=== PATIENT | female | born 1970 | race Caucasian/White ===

== ENCOUNTER 2019-02-12 15:36 | Observation (INO) | payer BC, SELFPAY ==
[2019-02-12] VITALS (7 sets, daily range): BP systolic 134–156; BP diastolic 79–103; PULSE 75–91; RESP 13–18; TEMP 36.5–36.9; O2SAT 95–98; BMI 42.8; BMI 43.0; BMI 43.1
--- NOTE | 2019-02-12 16:04 | EKG12_ITS ---
Test Reason : CP Blood Pressure : / mmHG Vent. Rate : 091 BPM Atrial Rate : 091 BPM P-R Int : 128 ms QRS Dur : 090 ms QT Int : 394 ms P-R-T Axes : 052 062 035 degrees QTc Int : 484 ms Normal sinus rhythm Possible Left atrial enlargement Prolonged QT Abnormal ECG Confirmed by CATHERINE WALTERS, INDIA ([id number]), proposal editor XAVIER HUANG ([id number]) on 02/13/2019 1:43:03 PM Referred By: CALE Confirmed By:INDIA ALEXANDER MD
--- NOTE | 2019-02-12 16:04 | RAD_ITS ---
STUDY: X-RAY CHEST REASON FOR EXAM: Female, 48 years old. Chest pain TECHNIQUE: Single AP portable view of the chest. COMPARISON: None. FINDINGS: The lungs are clear and expanded. There is no demonstrated pleural abnormality. Normal size heart. Normal mediastinum and teresa. Normal visualized pulmonary arteries. Normal visualized aortic arch and descending thoracic aorta. Unremarkable visualized thoracic spine. Normal visualized ribs, clavicles, and shoulders. There is no demonstrated abnormality of the visualized soft tissue structures of the upper abdomen. RAD/Chest 1 View (Portable) IMPRESSION: Normal x-ray examination of the chest. No acute intrathoracic process. No evidence of pneumonia or CHF. Electronically Signed: Timi Tam MD at 16:33 EDT Tel [phone], Service support ,
[2019-02-12] MEDS: Ondansetron 4 MG/2 ML Vial IV (16:11)
[2019-02-12] MEDS: Aspirin 81 MG TAB.CHEW 324 MG PO (16:11)
[2019-02-12] MEDS: Morphine 4 MG/ML Syringe IV (16:11)
[2019-02-12 16:20] LABS: Absolute Lymphocyte Count 3.44 X10^3/uL (0.83-4.51); Absolute Neutrophil Count 6.5 X10^3/uL (2.0-7.7); Basophil# 0.04 X10^3/uL; Basophil% 0.4 % (0-1); Eosinophil# 0.23 X10^3/uL; Eosinophils% 2.1 % (0-5); Hematocrit 41.3 % (37-47); Hemoglobin 13.4 g/dL (12.0-15.0); Lymphocyte # 3.44 X10^3/ul (4.0); Lymphocyte % 31.4 % (19-41); Mean Corp Hgb Conc 32.4 g/dL (32-36); Mean Corpuscular Hgb 30.5 pg (27.0-32.0); Mean Corpuscular Volume 94.1 fL (81-99); Mean Platelet Vol. 10.8 fl (6.2-12.0); Monocyte# 0.66 X10^3/uL; NRBC Flagged by Analyzer 0 % (0-5); Neutrophil % 59.3 % (47-70); Platelet Count 208 K/mm3 (150-450); RBC Distribution Width CV 13.7 % (11.6-14.6); RBC Distribution Width SD 47.3 fl (35.1-43.9); Red Blood Count 4.39 M/mm3 (4.2-5.4)
[2019-02-12 16:30] LABS: Anion Gap 6 (5-15); BUN 18 mg/dL (7-18); BUN/Creat Ratio 18.6 RATIO (10-20); Calcium,Total 8.3 mg/dL (8.5-10.1); Chloride 109 mmol/L (98-107); Creatinine, Serum 0.97 mg/dL (0.55-1.02); EST Glomerular Filtration Rate 66 mL/min (>60); Est Glom Filt Rate - Afr Amer 80 mL/min (>60); Estimated Creatinine Clearance 67.84 ml/min; Glucose 149 mg/dL (74-106); Potassium 3.9 mmol/L (3.5-5.1); Sodium Level 140 mmol/L (136-145)
--- NOTE | 2019-02-12 16:57 | ED.VIS.GEN ---
History of Present Illness Chief Complaint: Chest Pain Informant: Patient Onset: Today Context: Gradual Onset Timing: Continuous Current Severity: Moderate Maximum Severity: Moderate Narrative: Patient presents with chest pain, it is intermittent achy. She has multiple comorbidities. The patient does have some pressure component. No fever chills. No cough congestion. She has no DVT or PE risk factors. Pain is mild to moderate Past Medical History - Allergies and Home Meds Allergies/Adverse Reactions: Allergies No Known Allergies Allergy (Verified 02/12/19 15:38) Primary Care Physician: Odette Patel NP-C [Primary Care Provider] - Past Medical History: - - Hypertension, smoker, positive family history Smoking Status: Current every day smoker Review of Systems All systems negative except as indicated General: Denies: Fever Eyes: Denies: Visual changes - bilaterally Cardiovascular: Reports: Chest pain. Denies: Palpitations Respiratory: Denies: Dyspnea, Cough, Sputum Gastrointestinal: Denies: Abdominal pain, Nausea Skin: Denies: Rash Neurological: Denies: Headache, Weakness Hematologic: Denies: Easy bruising Physical Exam Vital Signs/Narrative: Vital Signs Temp Pulse Resp BP Pulse Ox 02/12/19 15:41 97.9 F 91 16 151/103 H 98 General: Well nourished, Well developed, No Acute Distress ENT: Moist mucous membranes Cardiovascular: Regular rate, Regular rhythm, No murmurs Respiratory: No distress, CTA bilaterally Abdomen: Soft, Nontender, Nondistended Back: Nontender, Normal Inspection Extremities: - - Bilateral symmetric lower extremity edema which is chronic Skin: Normal color Neurological: Alert, Oriented x3 Psychological: Normal affect Diagnostic/Tx/Re-eval Chest X-Ray - ED: 1 View, Normal, Heart, Lungs - Rhythm Strip Rhythm Strip: Sinus Rhythm Rate: 91 Ectopy: None - EKG Initial EKG Interpretation: Sinus Rhythm, Non-Specific ST Changes, - - Normal IA and QTc intervals. Interpreted by emergency doctor - Medical Decision Making Patient has a heart score of 5, I will admit her for cardiac work-up. Initial cardiac work-up was unremarkable in the ED. Position admit stable condition ED Disposition - Plan for ED Patient: Diagnosis: Chest pain Referrals: Odette Patel NP-C [Primary Care Provider] -
--- NOTE | 2019-02-12 17:54 | PCM.HP.STD ---
<Libby Da Silva - Last Filed: 02/12/19 18:20> Problem List (1) Chest pain Status: Acute (2) HTN (hypertension) Status: Chronic (3) Morbid obesity Status: Chronic History of Present Illness Date of Admission: 02/12/19 Chief Complaint: Chest pain. The patient is a 48 year old F who presents emergency room due to chest pain. Patient reports she has had chest pain intermittently for several weeks, typically associated with exertion and improves with rest. She reports pain radiation down the left side of her arm. She describes associated shortness of breath, lightheadedness and diaphoresis. She reports last night her chest pain became worse and she decided to come to the emergency room today. She reports yesterday she did a lot of physical activity at a family member's house. She denies chest pain during that activity however later that night at home she developed significant chest pain. She states she has been sick for the past few weeks with an upper respiratory infection and was recently placed on oral steroids which she completed. She continues to have nonproductive cough, otherwise symptoms have mostly resolved. She has a past medical history of hypertension, tobacco dependence, anxiety, depression, restless leg syndrome, morbid obesity. 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 Denies: Edema, Palpitations, Syncope Respiratory: Reports: Cough, Shortness of breath upon exertion. Denies: Shortness of breath at rest, Sputum production Gastrointestinal: Denies: Abdominal Pain, Nausea, Vomiting Genitourinary: Denies: Dysuria Musculoskeletal: Denies: Joint Pain, Joint Tenderness Skin: Denies: Rash, Wounds Neurological: Denies: Numbness, Tingling, Focal weakness Psychiatric: Reports: Anxiety, Depression Hematologic/ Lymphatic: Denies: Easy Bruising, Easy Bleeding VTE Information - Inpt Only VTE Present on Admission: No VTE Mechan Device Prophylaxis: None VTE Pharm Prophylaxis ordered?: Yes Patient Problems: Active and Suspected Problems Chest pain (Acute) - Physical Exam General: Alert, Oriented x3, Cooperative HEENT: Atraumatic, PERRLA, EOMI, Normocephalic Neck: Supple, No JVD, Negative Carotid Bruits Lungs: Clear to auscultation, Diminished Cardiovascular: Regular rate, Regular Rhythm, Normal S1, Normal S2, No murmurs Abdomen: Bowel Sounds Present, Soft, Non Tender, Non-Distended, Obese Extremities: No clubbing, No cyanosis, No edema, Capillary Refill Less than 3 Seconds Skin: No rashes, No breakdown Musculoskeletal: No Tenderness to Palpation of Joints or Extremities Neurological: Cranial nerves II-XII grossly intact, Neuro grossly intact Psych/Mental Status: Normal Affect, Appropriate Vital Signs Temp Pulse Resp BP Pulse Ox 97.9 F 90 14 134/79 H 95 02/12/19 15:41 02/12/19 17:17 02/12/19 17:17 02/12/19 17:17 02/12/19 17:17 Oxygen Delivery Method Room Air Weight: 262 lb 12.656 oz Body Mass Index (BMI) 43.0 Laboratory Tests Past 24 Hrs 02/12/19 02/12/19 15:45 15:45 WBC 11.0 RBC 4.39 Hgb 13.4 Hct 41.3 MCV 94.1 MCH 30.5 MCHC 32.4 RDW Std Deviation 47.3 H RDW Coeff of Brissa 13.7 Plt Count 208 MPV 10.8 Immature Gran % (Auto) 0.800 Neut % (Auto) 59.3 Lymph % (Auto) 31.4 [place] % (Auto) 6.0 Eos % (Auto) 2.1 Baso % (Auto) 0.4 Absolute Neuts (auto) 6.5 Absolute Lymphs (auto) 3.44 Nucleated RBC % 0 Sodium 140 Potassium 3.9 Chloride 109 H Carbon Dioxide 25.0 Anion Gap 6 BUN 18 Creatinine 0.97 Estim Creat Clear Calc 67.84 Est GFR (MDRD) Af Amer 80 Est GFR (MDRD) Non-Af 66 BUN/Creatinine Ratio 18.6 Glucose 149 H Calcium 8.3 L Troponin I < 0.015 Assessment/Plan All Active Problems Chest pain (Acute) 1. Chest pain, rule out ACS-EKG without ST-T changes. Troponin negative. Trend enzymes. Repeat EKG in a.m. Plan for stress test in a.m. 2. Hypertension-stable, continue home lisinopril regimen. 3. Morbid obesity-encouraged diet lifestyle modifications. 4. Restless leg syndrome-continue home Requip regimen. 5. Tobacco dependence-current pack per day smoker. Nicotine replacement patch. 6. Recent URI-as needed albuterol aerosol. DVT prophylaxis-Lovenox subcu This patient was seen by JESE Young under the supervision of Dr. Salinas. <Denise Salinas - Last Filed: 02/12/19 19:24> History of Present Illness The patient is a 48 year old F [] Past Medical History Allergies No Known Allergies Allergy (Verified 02/12/19 15:38) - Physical Exam Vital Signs Temp Pulse Resp BP Pulse Ox 97.7 F L 85 13 137/81 H 96 02/12/19 17:51 02/12/19 18:23 02/12/19 17:51 02/12/19 17:51 02/12/19 17:51 Oxygen Delivery Method Room Air Weight: 119.2 kg Body Mass Index (BMI) 43.0 Laboratory Tests Past 24 Hrs 02/12/19 02/12/19 02/12/19 15:45 15:45 15:45 WBC 11.0 RBC 4.39 Hgb 13.4 Hct 41.3 MCV 94.1 MCH 30.5 MCHC 32.4 RDW Std Deviation 47.3 H RDW Coeff of Brissa 13.7 Plt Count 208 MPV 10.8 Immature Gran % (Auto) 0.800 Neut % (Auto) 59.3 Lymph % (Auto) 31.4 [place] % (Auto) 6.0 Eos % (Auto) 2.1 Baso % (Auto) 0.4 Absolute Neuts (auto) 6.5 Absolute Lymphs (auto) 3.44 Nucleated RBC % 0 Sodium 140 Potassium 3.9 Chloride 109 H Carbon Dioxide 25.0 Anion Gap 6 BUN 18 Creatinine 0.97 Estim Creat Clear Calc 67.84 Est GFR (MDRD) Af Amer 80 Est GFR (MDRD) Non-Af 66 BUN/Creatinine Ratio 18.6 Glucose 149 H Hemoglobin A1c 5.8 Calcium 8.3 L Troponin I < 0.015 02/12/19 18:35 WBC RBC Hgb Hct MCV MCH MCHC RDW Std Deviation RDW Coeff of Brissa Plt Count MPV Immature Gran % (Auto) Neut % (Auto) Lymph % (Auto) [place] % (Auto) Eos % (Auto) Baso % (Auto) Absolute Neuts (auto) Absolute Lymphs (auto) Nucleated RBC % Sodium Potassium Chloride Carbon Dioxide Anion Gap BUN Creatinine Estim Creat Clear Calc Est GFR (MDRD) Af Amer Est GFR (MDRD) Non-Af BUN/Creatinine Ratio Glucose Hemoglobin A1c Calcium Troponin I < 0.015 Assessment/Plan This patient was seen in conjunction with Libby Da Silva. I have independently interviewed and examined the patient and reviewed pertinent historical, laboratory, and other data. I have reviewed her note and concur with her documentation CC: Chest pain -going since the night prior to admission HPI: 48-year-old with past medical history of hypertension, chronic nicotine use disorder who comes in with complaints of substernal chest pain. She admits to having chest pain on and off for weeks that is associated with exertion and improved with pain. There is a strong family history of sudden cardiac in his dad. Mother has history of quadruple bypass surgery. Patient however helped her and to move and carried lots of boxes the day prior to admission. Her chest pain is worse with ambulation and moving her torso and relieved with rest. She denied any dizziness or diaphoresis or nausea or vomiting. She admits to recent upper respiratory illness. PMHX: Hypertension PSHx: None FHX: As in HPI SHX: Drinks alcohol occasionally, smokes a pack of cigarettes a day, denies any illicit drug use Physical Exam: Vitals: Temperature 97.7 F, heart rate 77, blood pressure 137/81, respiratory rate 18, SPO2 was 96% on room air Gen: Looks in some discomfort, in mild discomfort, not pale, not jaundiced CVS:HS I +II, regular, no murmurs RESP: Carolin clear to auscultation GI: BS present and normal, soft, nontender, no palpable organs EXT:No edema Labs: CBC D, BMP is unremarkable. HbA1c is 5.8 ASSESSMENT: 1. Chest pain,atypical, likely musculoskeletal, will rule out ACS 2. Hypertension 3. Morbid Obesity 4. Nicotine dependence Plan: Admit to PCU, cycle cardiac enzymes Stress echo in a.m. Scheduled Tylenol, PRN oxycodone Advised to quit, nicotine replacement Code Visit OBSV E&M: 51402 Initial observation care L3
[2019-02-12] MEDS: Acetaminophen 325 MG Tablet 650 MG PO (18:51)
[2019-02-12 19:00] LABS: Hemoglobin A1c 5.8 % (4.2-6.3)
--- NOTE | 2019-02-12 19:44 | EKG12_ITS ---
Test Reason : POST PCI Blood Pressure : / mmHG Vent. Rate : 075 BPM Atrial Rate : 075 BPM P-R Int : 132 ms QRS Dur : 084 ms QT Int : 422 ms P-R-T Axes : 011 072 044 degrees QTc Int : 471 ms Normal sinus rhythm Normal ECG Confirmed by SHIRA WALTERS, FLORA ([id number]), restaurant expeditor XAVIER HUANG ([id number]) on 02/21/2019 1:00:28 PM Referred By: IRAM Confirmed By:FLORA SILVA MD
[2019-02-12] MEDS: Pramipexole Di-HCl 0.5 MG Tablet PO (21:58)
[2019-02-12] MEDS: oxyCODONE 5 MG Tablet PO (22:04)
[2019-02-12] MEDS: hydrOXYzine PAM 25 MG Capsule 100 MG PO (22:05)
[2019-02-12 22:06] LABS: Bedside Glucose 97 mg/dL (70-110)
--- NOTE | 2019-02-12 22:53 | NURSING ---
When assessing VS, pt only 86% saturated on 1L nasal cannula. Pt placed back on 2L nasal cannula. Pt O2 saturation increased to 92%.
[2019-02-13] VITALS (20 sets, daily range): BP systolic 106–164; BP diastolic 60–107; PULSE 66–89; RESP 13–24; TEMP 36.2–36.8; O2SAT 96–100
[2019-02-13] MEDS: Acetaminophen 500 MG Tablet 1000 MG PO ×4 (00:49→21:08)
[2019-02-13] MEDS: Lisinopril 40 MG Tablet PO (05:31)
--- NOTE | 2019-02-13 05:55 | EKG12_ITS ---
Test Reason : AM EKG Blood Pressure : / mmHG Vent. Rate : 072 BPM Atrial Rate : 072 BPM P-R Int : 136 ms QRS Dur : 086 ms QT Int : 442 ms P-R-T Axes : 008 070 039 degrees QTc Int : 483 ms Normal sinus rhythm Prolonged QT Abnormal ECG When compared with ECG of 12-FEB-2019 19:53, MANUAL COMPARISON REQUIRED, DATA IS UNCONFIRMED Confirmed by JUNAID WALDEN ([id number]), editorial manager AMERICA GONZÁLES ([id number]) on 02/19/2019 2:44:31 PM Referred By: DR ART Confirmed By:JUNAID WALDEN
[2019-02-13 06:02] LABS: Absolute Lymphocyte Count 3.84 X10^3/uL (0.83-4.51); Absolute Neutrophil Count 4.5 X10^3/uL (2.0-7.7); Basophil# 0.04 X10^3/uL; Basophil% 0.4 % (0-1); Eosinophil# 0.22 X10^3/uL; Eosinophils% 2.4 % (0-5); Hematocrit 39.6 % (37-47); Hemoglobin 12.3 g/dL (12.0-15.0); Lymphocyte # 3.84 X10^3/ul (4.0); Lymphocyte % 41.1 % (19-41); Mean Corp Hgb Conc 31.1 g/dL (32-36); Mean Corpuscular Hgb 29.4 pg (27.0-32.0); Mean Corpuscular Volume 94.7 fL (81-99); Mean Platelet Vol. 10.7 fl (6.2-12.0); Monocyte# 0.67 X10^3/uL; Monocyte% 7.2 % (0-10); NRBC Flagged by Analyzer 0 % (0-5); Neutrophil # 4.53 X10^3/uL (2.7-7.7); Neutrophil % 48.5 % (47-70); Platelet Count 189 K/mm3 (150-450); RBC Distribution Width CV 14.1 % (11.6-14.6); RBC Distribution Width SD 48.9 fl (35.1-43.9); Red Blood Count 4.18 M/mm3 (4.2-5.4); White Blood Count 9.3 K/mm3 (4.4-11.0)
[2019-02-13 06:19] LABS: Anion Gap 4 (5-15); BUN 14 mg/dL (7-18); BUN/Creat Ratio 19.7 RATIO (10-20); Chloride 109 mmol/L (98-107); Creatinine, Serum 0.71 mg/dL (0.55-1.02); EST Glomerular Filtration Rate 94 mL/min (>60); Est Glom Filt Rate - Afr Amer 113 mL/min (>60); Estimated Creatinine Clearance 89.09 ml/min; Glucose 95 mg/dL (74-106); Potassium 4.1 mmol/L (3.5-5.1); Sodium Level 140 mmol/L (136-145)
[2019-02-13] MEDS: Aspirin E.C. 81 MG Tablet PO (06:31)
[2019-02-13 06:41] LABS: Bedside Glucose 80 mg/dL (70-110)
--- NOTE | 2019-02-13 08:00 | STEWCON_ITS ---
Reason For Study: Chest Pain Stress Results Protocol: Farooq Protocol WITH DEFINITY Maximum Predicted HR: 174 bpm Target HR: 148 bpm % Maximum Predicted HR: 85 % Heart Stage Duration Rate BP Comment (mm:ss) (bpm) BASELINE 69 130/962 CC DEFINITY STAGE 1 3:00 110 142/88 STAGE 2 3:00 122 164/80dull chest discomfort increased SOB, Burning sensation to left anterior chest. 1 cc STAGE 3 2:00 148 / Definity RECOVERY 83 126/73 Stress Duration: 8:00 mm:ss Maximum Stress HR: 148 bpm METS: 9 Baseline Echocardiogram Findings Stress Echo Wall motion Data Resting WM Intermediate WM Stress WM Resting Wall Motion Wall Motion Stress Anterio-Basal: Normal. Anterio-Basal: Hyperkinetic. Lateral-Basal: Normal. Lateral-Basal: Hyperkinetic. Posterior-Basal: Normal. Posterior-Basal: Hyperkinetic. Infero-Basal: Normal. Infero-Basal: Hyperkinetic. Basal inferoseptal: Normal. Basal inferoseptal: Hyperkinetic. Basal anteroseptal: Normal. Basal anteroseptal: Hyperkinetic. Mid-Anterior : Normal. Mid-Anterior : Hypokinetic. Mid-Lateral : Normal. Mid-Lateral : Hyperkinetic. Mid-Posterior: Normal. Mid-Posterior: Normal. Mid-Inferior: Normal. Mid-Inferior: Normal. Mid-inferoseptal : Normal. Mid-inferoseptal : Normal. Mid-anteroseptal : Normal. Mid-anteroseptal : Hypokinetic. Anterior [place] : Hypokinetic. Anterior [place] : Hypokinetic. Inferior [place] : Normal. Inferior [place] : Hyperkinetic. Lateral [place] : Normal. Lateral [place] : Hyperkinetic. Septall [place] : Normal. Septall [place] : Hyperkinetic. Ejection Fraction 55 %. Ejection Fraction 65 %. Stress Results Heart rate response: Appropriate Blood pressure response: Resting hypertension-appropriate response Arrhythmias: None Functional capacity: Good Stopped secondary to: Chest discomfort/dyspnea. EKG Data The baseline ECG displays normal sinus rhythm. Peak exercise ECG: No obvious ECG changes. Symptoms with Stress The patient noted chest discomfort/burning during exercise. Interpretation Summary Abnormal (Adequate) Stress Echocardiogram Ordering Physician: Gerri^^^JAVA PROGRAMMING PROFESSOR-C Performed By: Eli Valdez RDCS
[2019-02-13] MEDS: oxyCODONE 5 MG Tablet PO ×2 (09:50→19:24)
--- NOTE | 2019-02-13 09:52 | CASEMGMT ---
According to the [place] website, the following are in-network tertiary facilities: [facility], [facility], [facility], [place], [facility], [facility], [facility], [place], [facility], and . Bharti GARCIA CM
[2019-02-13] MEDS: 0.9% NaCl Peripheral Flush Adult/Peds IV (09:53)
[2019-02-13] MEDS: TICAGRELOR 90 MG TABLET 180 MG PO (09:56)
--- NOTE | 2019-02-13 10:10 | PCM.PROGNOTE ---
<Libby Da Silva - Last Filed: 02/13/19 10:17> Patient Problems: Active and Suspected Problems Chest pain (Acute) Abnormal stress test (Acute) Subjective: Patient seen and examined. Continues to have intermittent chest discomfort. Underwent stress echo which was reported to be abnormal, report pending. Plan for cardiac catheterization. - Physical Exam General: Alert, Oriented x3, Cooperative HEENT: Atraumatic, PERRLA, EOMI, Normocephalic Neck: Supple, No JVD, Negative Carotid Bruits Lungs: Clear to auscultation, Diminished Cardiovascular: Regular rate, Regular Rhythm, Normal S1, Normal S2, No murmurs Abdomen: Bowel Sounds Present, Soft, Non Tender, Non-Distended, Obese Extremities: No clubbing, No cyanosis, No edema, Capillary Refill Less than 3 Seconds Skin: No rashes, No breakdown Musculoskeletal: No Tenderness to Palpation of Joints or Extremities Neurological: Cranial nerves II-XII grossly intact, Neuro grossly intact Psych/Mental Status: Normal Affect, Appropriate Vital Signs Temp Pulse Resp BP Pulse Ox 97.8 F 67 16 131/89 H 99 02/13/19 05:26 02/13/19 06:59 02/13/19 05:26 02/13/19 05:26 02/13/19 05:26 Oxygen Delivery Method Room Air Weight: 262 lb 12.656 oz Body Mass Index (BMI) 43.0 Intake and Output for Last 24 Hours 02/11/19 02/12/19 02/13/19 23:59 23:59 23:59 Intake Total 400 / 400 Balance 400 / 400 Laboratory Tests Past 24 Hrs 02/12/19 02/12/19 02/12/19 15:45 15:45 15:45 WBC 11.0 RBC 4.39 Hgb 13.4 Hct 41.3 MCV 94.1 MCH 30.5 MCHC 32.4 RDW Std Deviation 47.3 H RDW Coeff of Brissa 13.7 Plt Count 208 MPV 10.8 Immature Gran % (Auto) 0.800 Neut % (Auto) 59.3 Lymph % (Auto) 31.4 [place] % (Auto) 6.0 Eos % (Auto) 2.1 Baso % (Auto) 0.4 Absolute Neuts (auto) 6.5 Absolute Lymphs (auto) 3.44 Nucleated RBC % 0 Sodium 140 Potassium 3.9 Chloride 109 H Carbon Dioxide 25.0 Anion Gap 6 BUN 18 Creatinine 0.97 Estim Creat Clear Calc 67.84 Est GFR (MDRD) Af Amer 80 Est GFR (MDRD) Non-Af 66 BUN/Creatinine Ratio 18.6 Glucose 149 H Hemoglobin A1c 5.8 Calcium 8.3 L Troponin I < 0.015 02/12/19 02/12/19 02/13/19 18:35 21:34 05:11 WBC 9.3 RBC 4.18 L Hgb 12.3 Hct 39.6 MCV 94.7 MCH 29.4 MCHC 31.1 L RDW Std Deviation 48.9 H RDW Coeff of Brissa 14.1 Plt Count 189 MPV 10.7 Immature Gran % (Auto) 0.400 Neut % (Auto) 48.5 Lymph % (Auto) 41.1 H [place] % (Auto) 7.2 Eos % (Auto) 2.4 Baso % (Auto) 0.4 Absolute Neuts (auto) 4.5 Absolute Lymphs (auto) 3.84 Nucleated RBC % 0 Sodium Potassium Chloride Carbon Dioxide Anion Gap BUN Creatinine Estim Creat Clear Calc Est GFR (MDRD) Af Amer Est GFR (MDRD) Non-Af BUN/Creatinine Ratio Glucose Hemoglobin A1c Calcium Troponin I < 0.015 < 0.015 02/13/19 05:11 WBC RBC Hgb Hct MCV MCH MCHC RDW Std Deviation RDW Coeff of Brissa Plt Count MPV Immature Gran % (Auto) Neut % (Auto) Lymph % (Auto) [place] % (Auto) Eos % (Auto) Baso % (Auto) Absolute Neuts (auto) Absolute Lymphs (auto) Nucleated RBC % Sodium 140 Potassium 4.1 Chloride 109 H Carbon Dioxide 27.0 Anion Gap 4 L BUN 14 Creatinine 0.71 Estim Creat Clear Calc 89.09 Est GFR (MDRD) Af Amer 113 Est GFR (MDRD) Non-Af 94 BUN/Creatinine Ratio 19.7 Glucose 95 Hemoglobin A1c Calcium 8.0 L Troponin I POC Glucose 02/13/19 02/12/19 06:35 21:56 POC Glucose 80 97 Medical Necessity - Tobacco Use Smoking Status: Current every day smoker Tobacco Use: Cigarettes Assessment/Plan All Active Problems Chest pain (Acute) Abnormal stress test (Acute) 1. Chest pain, abnormal stress echo-EKG without ST-T changes. Troponin negative. Stress echo reported to be normal, report pending. Cardiology consulted. Plan for cardiac catheterization later today. Continue aspirin. Check lipid panel. 2. Hypertension-stable, continue home lisinopril regimen. 3. Morbid obesity-encouraged diet lifestyle modifications. 4. Restless leg syndrome-continue home Requip regimen. 5. Tobacco dependence-current pack per day smoker. Nicotine replacement patch. 6. Recent URI, continues to have intermittent cough-as needed albuterol aerosol. DVT prophylaxis-Lovenox subcu This patient was seen by JESE Young under the supervision of Dr. Hubbard. <Oscar Hubbard - Last Filed: 02/13/19 11:28> Subjective: Still with chest pain. Stress test abnormal. - Physical Exam General: Alert, Cooperative HEENT: Atraumatic, Normocephalic Neck: No Nodes, Thyroid Normal Size and Texture Lungs: Clear to auscultation, Normal air movement, No rhonchi, No wheeze Cardiovascular: Regular rate, Regular Rhythm, Normal S1, Normal S2, No murmurs Abdomen: Bowel Sounds Present, Soft, Non Tender, Non-Distended, Obese Extremities: No edema, No Calf Tenderness Vital Signs Temp Pulse Resp BP Pulse Ox 36.2 C L 73 18 161/98 H 100 02/13/19 10:28 02/13/19 10:28 02/13/19 10:28 02/13/19 10:28 02/13/19 10:28 Oxygen Delivery Method Room Air Weight: 119.2 kg Body Mass Index (BMI) 43.0 Intake and Output for Last 24 Hours 02/11/19 02/12/19 02/13/19 23:59 23:59 23:59 Intake Total 400 / 400 Balance 400 / 400 Laboratory Tests Past 24 Hrs 02/12/19 02/12/19 02/12/19 15:45 15:45 15:45 WBC 11.0 RBC 4.39 Hgb 13.4 Hct 41.3 MCV 94.1 MCH 30.5 MCHC 32.4 RDW Std Deviation 47.3 H RDW Coeff of Brissa 13.7 Plt Count 208 MPV 10.8 Immature Gran % (Auto) 0.800 Neut % (Auto) 59.3 Lymph % (Auto) 31.4 [place] % (Auto) 6.0 Eos % (Auto) 2.1 Baso % (Auto) 0.4 Absolute Neuts (auto) 6.5 Absolute Lymphs (auto) 3.44 Nucleated RBC % 0 Sodium 140 Potassium 3.9 Chloride 109 H Carbon Dioxide 25.0 Anion Gap 6 BUN 18 Creatinine 0.97 Estim Creat Clear Calc 67.84 Est GFR (MDRD) Af Amer 80 Est GFR (MDRD) Non-Af 66 BUN/Creatinine Ratio 18.6 Glucose 149 H Hemoglobin A1c 5.8 Calcium 8.3 L Troponin I < 0.015 Triglycerides Cholesterol LDL Cholesterol VLDL Cholesterol HDL Cholesterol Serum , Qual 02/12/19 02/12/19 02/13/19 18:35 21:34 05:11 WBC 9.3 RBC 4.18 L Hgb 12.3 Hct 39.6 MCV 94.7 MCH 29.4 MCHC 31.1 L RDW Std Deviation 48.9 H RDW Coeff of Brissa 14.1 Plt Count 189 MPV 10.7 Immature Gran % (Auto) 0.400 Neut % (Auto) 48.5 Lymph % (Auto) 41.1 H [place] % (Auto) 7.2 Eos % (Auto) 2.4 Baso % (Auto) 0.4 Absolute Neuts (auto) 4.5 Absolute Lymphs (auto) 3.84 Nucleated RBC % 0 Sodium Potassium Chloride Carbon Dioxide Anion Gap BUN Creatinine Estim Creat Clear Calc Est GFR (MDRD) Af Amer Est GFR (MDRD) Non-Af BUN/Creatinine Ratio Glucose Hemoglobin A1c Calcium Troponin I < 0.015 < 0.015 Triglycerides Cholesterol LDL Cholesterol VLDL Cholesterol HDL Cholesterol Serum , Qual 02/13/19 02/13/19 02/13/19 05:11 05:11 10:10 WBC RBC Hgb Hct MCV MCH MCHC RDW Std Deviation RDW Coeff of Brissa Plt Count MPV Immature Gran % (Auto) Neut % (Auto) Lymph % (Auto) [place] % (Auto) Eos % (Auto) Baso % (Auto) Absolute Neuts (auto) Absolute Lymphs (auto) Nucleated RBC % Sodium 140 Potassium 4.1 Chloride 109 H Carbon Dioxide 27.0 Anion Gap 4 L BUN 14 Creatinine 0.71 Estim Creat Clear Calc 89.09 Est GFR (MDRD) Af Amer 113 Est GFR (MDRD) Non-Af 94 BUN/Creatinine Ratio 19.7 Glucose 95 Hemoglobin A1c Calcium 8.0 L Troponin I Triglycerides 111 Cholesterol 171 LDL Cholesterol 102 VLDL Cholesterol 22 HDL Cholesterol 47 Serum , Qual NEGATIVE POC Glucose 02/13/19 02/12/19 06:35 21:56 POC Glucose 80 97 Assessment/Plan Patient seen and examined independently. Data reviewed. I agree with the above note by the nurse practitioner. 1. Chest pain: Stress test abnormal. Plan for left heart catheterization today and then further recommendations pending the results of the stress test. Code Visit OBSV E&M: 87253 Subsequent observation care L2
[2019-02-13 10:33] LABS: Internal QC Validated? YES +Cl - CLEAR BKGD; Pregnancy, Serum, hCG Quali. NEGATIVE Negative
--- NOTE | 2019-02-13 10:35 | PCM.CONS.C ---
Problem List (1) Abnormal stress test Status: Acute (2) Chest pain Status: Acute (3) HTN (hypertension) Status: Chronic (4) Morbid obesity Status: Chronic Reason for Consult Date of Consultation: 02/13/19 History of Present Illness: The patient is a 48 year old female with a past cardiovascular history she has included hypertension who presents for evaluation of chest discomfort and subsequently an abnormal stress echocardiogram. The patient states that for some time now (weeks/months) she has been noticing exertional chest discomfort. She describes a left upper chest burning sensation with radiation to the left upper extremity that can be associated with shortness of breath/dyspnea and lightheadedness. She does not recall having obvious nausea or emesis. There is been no obvious palpitations and no near syncope or syncope. She states her symptoms have progressively gotten worse. She also notes she has recently been treated for URI. She has not undergone cardiovascular evaluation in the past. She presented to the hospital for further evaluation. Her troponin I levels were negative. Her ECG is demonstrated sinus rhythm with no acute ECG changes. She has subsequently undergone a stress echocardiogram. Based upon the stress echocardiogram there were concerns of resting and post stress left ventricular regional wall motion abnormalities in the anterior apical, mid anterior, and mid anteroseptal segments (please see official report) despite her overall LV systolic function/LVEF increasing. She denies any history of orthopnea or PND. 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 She attributes this to concerns of her lower extremities with respect to venous varicosities and lower extremity edema. 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 Denies: Orthopnea, PND, Peripheral Edema, Palpitations, Dizziness, Near Syncope, Syncope Respiratory: Reports: Shortness of Breath Gastrointestinal: Denies: Hematemesis, Hematochezia, Melena Genitourinary: Denies: Dysuria, Hematuria Skin: Denies: Rash Subjectve: This is a 48-year-old white female who appears to be resting comfortably at the moment in no acute distress. Objective: Vital Signs Temp Pulse Resp BP Pulse Ox 97.1 F L 73 18 161/98 H 100 02/13/19 10:28 02/13/19 10:28 02/13/19 10:28 02/13/19 10:28 02/13/19 10:28 Oxygen Delivery Method Room Air Weight: 262 lb 12.656 oz Body Mass Index (BMI) 43.0 Intake and Output for Last 24 Hours 02/11/19 02/12/19 02/13/19 23:59 23:59 23:59 Intake Total 400 / 400 Balance 400 / 400 General: Awake, Alert, Oriented x 3, Cooperative, No Acute Distress, Obese HEENT: Atraumatic, Normocephalic, PERRL, EOMI, Sclera Non Icteric Oral: Moist Mucosa Neck: Supple, Good ROM, No JVD Lungs: Clear to auscultation Cardiovascular: Regular Rhythm, Normal S1, Normal S2 Vascular: No Carotid Bruits Abdomen: Bowel Sounds Present, Soft, Non Tender Extremities: - - Bilateral lower extremity venous varicosities Neurological: No Focal Motor or Sensory Deficit Psych/Mental Status: Appropriate 02/12/19 15:45: WBC 11.0, RBC 4.39, Hgb 13.4, Hct 41.3, MCV 94.1, MCH 30.5, MCHC 32.4, Plt Count 208, MPV 10.8, Immature Gran % (Auto) 0.800, Neut % (Auto) 59.3, Lymph % (Auto) 31.4, [place] % (Auto) 6.0, Eos % (Auto) 2.1, Baso % (Auto) 0.4, Absolute Neuts (auto) 6.5, Nucleated RBC % 0 02/12/19 15:45: Sodium 140, Potassium 3.9, Chloride 109 H, Carbon Dioxide 25.0, Anion Gap 6, BUN 18, Creatinine 0.97, Est GFR (MDRD) Af Amer 80, Est GFR (MDRD) Non-Af 66, BUN/Creatinine Ratio 18.6, Glucose 149 H, Calcium 8.3 L, Troponin I < 0.015 02/12/19 15:45: Hemoglobin A1c 5.8 02/12/19 18:35: Troponin I < 0.015 02/12/19 21:34: Troponin I < 0.015 02/13/19 05:11: WBC 9.3, RBC 4.18 L, Hgb 12.3, Hct 39.6, MCV 94.7, MCH 29.4, MCHC 31.1 L, Plt Count 189, MPV 10.7, Immature Gran % (Auto) 0.400, Neut % (Auto) 48.5, Lymph % (Auto) 41.1 H, [place] % (Auto) 7.2, Eos % (Auto) 2.4, Baso % (Auto) 0.4, Absolute Neuts (auto) 4.5, Nucleated RBC % 0 02/13/19 05:11: Sodium 140, Potassium 4.1, Chloride 109 H, Carbon Dioxide 27.0, Anion Gap 4 L, BUN 14, Creatinine 0.71, Est GFR (MDRD) Af Amer 113, Est GFR (MDRD) Non-Af 94, BUN/Creatinine Ratio 19.7, Glucose 95, Calcium 8.0 L Rhythm: Sinus rhythm EKG: As noted above Stress Test: Preliminary report: As noted above: Please see official report CXR: The luminary evaluation: No acute cardiopulmonary disease process appreciated: Please see official report Assessment/Plan 1. Abnormal stress echocardiogram The patient does have an abnormal stress echocardiogram. It does raise concern about evidence of both resting and It is noted the patient's stress echocardiogram was technically challenging and required contrast enhancement. Thus there is a possibility of potential false positive changes. However, based upon the patient's symptoms, her cardiovascular risks with respect to hypertension, nicotine use, obesity, etc. despite negative troponin enzymes and no obvious ECG changes, it was felt appropriate in her case to consider further evaluation with diagnostic cardiac catheterization. The procedure and risks have been discussed and she was agreeable to this approach. 2. Chest pain/angina pectoris The patient does have chest pain. Her symptoms are exertional and concerning for angina pectoris. Again she has cardiovascular risk factors. She has the aforementioned stress echocardiogram but does raise concerns. At the present time she will continue to be monitored. She will continue medical management as deemed appropriate. At this time will include the addition of an antiplatelet agent. It is been recommended she undergo further evaluation with diagnostic cardiac catheterization as noted above. 3. Hypertension She will need continued medication adjustment as deemed appropriate. 4. Obesity She has been counseled on dietary therapy, exercise, etc. and attempt to bring her weight under better control. This note was generated using a voice recognition system and there may be incorrect words, spelling or punctuation that were not noted when reviewing the office note prior to saving.
[2019-02-13 11:04] LABS: Cholesterol 171 mg/dL (200); High Density Lipoprotein 47 mg/dL; Triglycerides 111 mg/dL; Very Low Density Lipoprotein 22 mg/dL (5-40)
[2019-02-13] MEDS: 0.9% Normal Saline 1,000 ML 15 ML IV (12:48)
--- NOTE | 2019-02-13 15:14 | CL.I_ITS ---
Patient Name: JIM LUNA Study Date: 02/13/2019 Performing: Tommy Walker MD Ht: 65.35 inches 166 cm : 1970 Wt: 262.35 lbs 119 kg Age: 48 Gender: female BSA: 2.23 PROCEDURE(S) PERFORMED [id number] W OR WO PTCA, SINGLE CORONARY ARTERY [id number] W OR WO PTCA, SINGLE CORONARY ARTERY CLINICAL PROFILE AND CO-MORBIDITIES Indications: Worsening Angina, ACS > 24 hrs, Worsening Angina Heart Failure: None Stress/Imaging Date: 02/13/2019 Stress Echocardiogram: Positive Angina Classification Anginal Classification w/in 2 Weeks: CCS III CAD Presentations: Stable angina. Unstable angina. Comorbidities/Risk Factors: Current/Recent Smoker (< 1year) Hypertension Dyslipidemia CONCLUSIONS Successful PTCA/ALEX mid LAD with a 3.0 x 20 Promus Synergy, post dilated with a 3.0 x 8 NC Balloon; 7 5%-->-0%, no dissection. Successful PTCA/ALEX mid LCX with a 3.0 x 38 Promus Synergy, post dilated with a 3.0 and 3.5 x 12 NC B alloon; 75%-->0-%, no dissection. RECOMMENDATIONS Highly recommend quitting all tobacco products Follow up with primary pattern keeper Risk factor modification ASA Indefinitley Plavix for at least 12 months Routine post interventional care Refer for Outpatient Cardiac Rehab Manual sheath removal per protocol Follow up with Dr. Sommers Successful Mynx Control to RFA. DESCRIPTION OF PROCEDURE The patient arrived to the procedure lab. The risks and benefits of the procedure as well as a full d escription of our services here and current unavailability of surgical backup were fully explained to the patient and/or their significant other prior to the catheterization. The Timeout was completed, verifying the correct patient and procedure. The patient's procedural site was prepped and draped in the usual fashion. Local anesthetic was given subcutaneously to right radial region with Lidocaine 2% . Local anesthetic was given subcutaneously to right groin region with Lidocaine 2% Using a modified Seldinger technique,arterial access was obtained via the right femoral artery, a 4Fr sheath was inser bia Left Coronary Artery selective angiography was performed in multiple views using a 4 Fr. JL5 cath eter. Right Coronary Artery selective angiography was then performed in multiple views using a 4 Fr. 3DRC catheter. Left Ventriculography was performed in [place] projection using a 4 Fr. Pigtail catheter. LV to AO pullback pressures were then recorded.The images were reviewed and options discuss ed. A decision was then made to proceed with an Intervention, IVUS or other adjunct procedure. Arterial sheath was exchanged for a 6 Fr Sheath. EBU 3.75 Guide catheter was inserted and engaged into the LCA. BMW Guide wire was advanced to the LAD. 2 x 12 emerge Balloon catheter was advanced ac ross lesion in the LAD, mid. PTCA balloon inflated at 8 atms for 12 secs. PTCA balloon inflated at 8 atms for 14 secs. Angiogram performed post balloon dilatation. 3.0 x 20 Synergy Drug Eluting stent wa s inserted. Drug Eluting stent was advanced across the lesion in the LAD, mid. Angiogram performed po st stent deployment. 3.0 x 8 NC emerge Balloon catheter was inserted post stent. Angiogram performed post balloon dilatation. 3.0 x 8 NC emerge Balloon catheter was reinserted Balloon catheter was inser bia post stent. Angiogram performed post balloon dilatation. Guide wire was repositioned to the Circu mflex 2.0 x 12 emerge Balloon catheter was inserted. Balloon catheter was advanced across lesion in t he circumflex, mid. PTCA balloon inflated at 8 atms for 10 secs. PTCA balloon inflated at 12 atms for 10 secs. PTCA balloon inflated at 12 atms for 10 secs. Angiogram performed post balloon d ilatation. 3.0 x 38 Synergy Drug Eluting stent was inserted. Drug Eluting stent was advanced across t he lesion in the circumflex, mid. Angiogram performed pre stent deployment. Angiogram performed post stent deployment. 3.0 x 8 NC Emerge Balloon catheter was inserted. Angiogram performed post balloon d ilatation. 3.5 x 12 NC Emerge Balloon catheter was inserted. Balloon catheter was inserted post stent . Angiogram performed post balloon dilatation. Contrast was injected through the sheath and the Right Iliac and Femoral artery were assessed for possible closure device. The arterial sheath was pulled and a Mynx closure device was deployed for hemostasis INTERVENTION INFORMATION LESION SITE: LAD (Mid) Lesion Complexity: High/C, lesion at bifurcation: No, thrombus present: No, lesion length: 20 mm, cul prit lesion: Yes Pre Stenosis: 75 % Pre intervention ALFA flow: 3 PROCEDURE: Drug Eluting Stent with pre and post dilatation Post Stenosis: 0 % Post intervention ALFA flow: 3 Lesion Devices: Goodman .014 BMW [place] Straight 190cm Medtronic 6 Fr EBU3.75 100cm Guide Catheter Scout Sci EMERGE MR 2.00x12 BALLOON Scout Sci Synergy MR ALEX 3.00x20 Scout Sci NC EMERGE MR 3.00x08 BALLOON LESION SITE: Circumflex (Mid) Lesion Complexity: High/C, lesion at bifurcation: No, thrombus present: No, lesion length: 38 mm, cul prit lesion: No Pre Stenosis: 75 % Pre intervention ALFA flow: 3 PROCEDURE: Drug Eluting Stent with pre and post dilatation Post Stenosis: 0 % Post intervention ALFA flow: 3 Lesion Devices: Goodman .014 BMW [place] Straight 190cm Medtronic 6 Fr EBU3.75 100cm Guide Catheter Scout Sci EMERGE MR 2.00x12 BALLOON Scout Sci Synergy MR ALEX 3.00x38 Scout Sci NC EMERGE MR 3.50x12 BALLOON COMPLICATIONS No Complications PROCEDURE MEDICATIONS Fentanyl 50 mcg IV Versed 1 mg IV Fentanyl 50 mcg IV Versed 1 mg IV Versed 2 mg IV Fentanyl 50 mcg IV Oxygen: 2 L/min via nasal cannula Heparin 6000 unit(s) IV 02/13/2019 14:20:28 Nitro 200 mcg IC 02/13/2019 14:22:30 Nitro glycerin 25mg / 250ml D5W @ 5 mcg/min IV started 02/13/2019 14:23:34 Nitro 200 mcg IC 02/13/2019 14:27:36 Nitro glycerin 25mg / 250ml D5W @ 10 mcg/min (increased rate) 02/13/2019 14:29:55 Nitro 400 mcg IC 02/13/2019 14:38:03 Nitro 300 mcg IC 02/13/2019 14:47:49 Nitro glycerin 25mg / 250ml D5W @ 15 mcg/min (increased rate) 02/13/2019 14:48:02 Nitro 200 mcg IC 02/13/2019 14:51:29 SUMMARY OF HEMODYNAMIC DATA Time AIR REST ECG 13:01:37 AO 161/103 (131) SA 14:04:44 LV 183/1, 45 14:14:24 LV 183/0, 38 14:14:36 LV 184/8, 40 14:16:57 LV 203/10, 47 14:17:03 LVp 194/10, 41 14:17:09 AOp 190/114 (145) 14:17:14 Signed By Tommy Walker MD On 02/13/2019 15:13:22 Tommy Walker MD
[2019-02-13 15:20] LABS: ACT Activated Clotting Time 169 sec (74-137)
[2019-02-13] MEDS: Nitroglycerin Infusion 250 ML 9 MG IV (15:25)
[2019-02-13] MEDS: 0.9% Normal Saline 1,000 ML 150 ML IV (15:40)
[2019-02-13] MEDS: diazePAM 5 MG Tablet PO (16:08)
--- NOTE | 2019-02-13 19:55 | CL.D_ITS ---
Patient Name: JIM LUNA Study Date: 02/13/2019 Performing: Xavi Sommers MD Ht: 65.35 inches 166 cm : 1970 Wt: 262.35 lbs 119 kg Age: 48 Gender: female BSA: 2.23 PROCEDURE(S) PERFORMED [id number] W OR WO PTCA, SINGLE CORONARY ARTERY [id number] W OR WO PTCA, SINGLE CORONARY ARTERY CLINICAL PROFILE AND INDICATIONS Indications: Worsening Angina, ACS > 24 hrs, Worsening Angina Heart Failure: None Stress/Imaging Date: 02/13/2019Stress Echocardiogram: Positive Angina Classification Anginal Classification w/in 2 Weeks: CCS III CAD Presentations: Stable angina. Unstable angina. Comorbidities/Risk Factors: Current/Recent Smoker (< 1year) Hypertension Dyslipidemia CONCLUSIONS Elevated Left Ventricular End Diastolic Pressure Normal LV size, wall motion,and systolic function LVEF: by LV gram 60 % [place] Multivessel CAD RECOMMENDATIONS Risk factor modification Medical therapy Referred for immediate PCI DESCRIPTION OF PROCEDURE The patient arrived to the procedure lab. The risks and benefits of the procedure as well as a full d escription of our services here and current unavailability of surgical backup were fully explained to the patient and/or their significant other prior to the catheterization. The Timeout was completed, verifying the correct patient and procedure. The patient's procedural site was prepped and draped in the usual fashion. Local anesthetic was given subcutaneously to right radial region with Lidocaine 2% . Local anesthetic was given subcutaneously to right groin region with Lidocaine 2%. Using a modified Seldinger technique, arterial access was obtained via the right femoral artery, a 4Fr sheath was ins erted Left Coronary Artery selective angiography was performed in multiple views using a 4 Fr. JL5 c atheter. Right Coronary Artery selective angiography was then performed in multiple views using a 4 F r. 3DRC catheter. Left Ventriculography was performed in [place] projection using a 4 Fr. Pigtail catheter. LV to AO pullback pressures were then recorded.Contrast was injected through the sh eath and the Right Iliac and Femoral artery were assessed for possible closure device.The arterial sh eath was pulled and a Mynx closure device was deployed for hemostasis CORONARY ANGIOGRAPHY DOMINANCE: Right Dominant LEFT HEART ASSESSMENT Left Ventricular Ejection Fraction: by LV Gram 60 % Normal LV wall motion Elevated Left Ventricular End Diastolic Pressure LVEDP: 38 mmHg LEFT MAIN: Angiographically normal LEFT ANTERIOR DESCENDING ARTERY: MID LAD: Eccentric: 85 % Stenosis DIAGONAL 1: Ostial - 50 % Stenosis, Proximal - 25 % Stenosis CIRCUMFLEX ARTERY: PROX CIRC: Eccentic: 25 % Stenosis (serial stenosis) MID CIRC: 75 % Stenosis RIGHT CORONARY ARTERY: PROX RCA: 25 % Stenosis MID RCA: Mild luminal irregularities DISTAL RCA: Mild luminal irregularities VALVE FINDINGS: Normal Aortic Valve function Normal Mitral Valve function AORTIC ROOT: Angiographically normal COMPLICATIONS No Complications PROCEDURE MEDICATIONS Fentanyl 50 mcg IV Versed 1 mg IV Fentanyl 50 mcg IV Versed 1 mg IV Versed 2 mg IV Fentanyl 50 mcg IV Oxygen: 2 L/min via nasal cannula Heparin 6000 unit(s) IV 02/13/2019 14:20:28 Nitro 200 mcg IC 02/13/2019 14:22:30 Nitro glycerin 25mg / 250ml D5W @ 5 mcg/min IV started 02/13/2019 14:23:34 Nitro 200 mcg IC 02/13/2019 14:27:36 Nitro glycerin 25mg / 250ml D5W @ 10 mcg/min (increased rate) 02/13/2019 14:29:55 Nitro 400 mcg IC 02/13/2019 14:38:03 Nitro 300 mcg IC 02/13/2019 14:47:49 Nitro glycerin 25mg / 250ml D5W @ 15 mcg/min (increased rate) 02/13/2019 14:48:02 Nitro 200 mcg IC 02/13/2019 14:51:29 SUMMARY OF HEMODYNAMIC DATA Time AIR REST ECG 13:01:37 AO 161/103 (131) SA 14:04:44 LV 183/1, 45 14:14:24 LV 183/0, 38 14:14:36 LV 184/8, 40 14:16:57 LV 203/10, 47 14:17:03 LVp 194/10, 41 14:17:09 AOp 190/114 (145) 14:17:14 Signed By Xavi Sommers MD On 02/13/2019 19:55:15 Xavi Sommers MD
--- NOTE | 2019-02-13 20:10 | NURSING ---
[facility] w/pt current symptoms and plan to wean off Nitro gtt.
--- NOTE | 2019-02-13 20:15 | NURSING ---
Pt is dry heaving and then having small amts of emesis, notified;PRN meds as ordered.
--- NOTE | 2019-02-13 20:20 | ECHOCS_ITS ---
Reason For Study: CAD/ASHD Procedure This was a 2D Doppler, Color Flow transthoracic echocardiogram. The study was technically difficult. Contrast injection was performed. Exam performed portable in ICU/CCU. Left Ventricle Normal LV size. Mild concentric left ventricular hypertrophy. Left ventricular systolic function is normal. The estimated ejection fraction is 65 %. There is evidence of diastolic dysfunction. No regional wall motion abnormalities noted. Right Ventricle Normal RV size. Normal systolic function. Atria The left atrium is mildly enlarged. Normal right atrium. No doppler evidence for ASD. Mitral Valve There is no mitral annular calcification. Normal mitral valve. Trivial mitral valve insufficiency. Tricuspid Valve Normal tricuspid valve. Trivial tricuspid valve insufficiency. Right ventricular systolic pressure estimated to be 30 mmHg. Aortic Valve Trisinus/trileaflet aortic valve. Normal aortic valve. Pulmonic Valve The pulmonic valve is not well visualized. Great Vessels Normal sized aortic root. Pericardium/Pleural No pericardial effusion. Medication Diluted definity 4ml given slow IV push to enhance endocardial definition. MMode/2D Measurements & Calculations LVIDd: 5.0 cm IVSd: 1.3 cm Ao root diam: 3.3 cm LVIDs: 3.5 cm LVPWd: 1.4 cm RVDd: 3.9 cm FS: 29.4 % LAV(MOD-bp): 86.0 ml LVAd ap4: 33.0 cm2 SV(MOD-sp4): 67.4 ml LAV(MOD-bp) Indexed: 38.7 ml/m2 EDV(MOD-sp4): 103.5 ml LAV(MOD-sp2): 94.6 ml EDV(sp4-el): 108.7 ml LAV(MOD-sp4): 71.8 ml LVAs ap4: 17.4 cm2 ESV(MOD-sp4): 36.1 ml ESV(sp4-el): 37.3 ml EF(MOD-sp4): 65.1 % EF(sp4-el): 65.7 % SV(sp4-el): 71.4 ml LA A4 area: 24.8 cm2 LA dimension(2D): 5.0 cm RA A4 area: 16.2 cm2 Doppler Measurements & Calculations MV E max andrei: 75.5 cm/sec Lat Peak E' Andrei: 9.5 cm/sec Med Peak E' Andrei: 4.8 cm/sec MV A max andrei: 70.6 cm/sec E/E' lat: 8.0 E/E' med: 15.6 MV E/A: 1.1 Ao V2 max: 148.0 cm/sec LV V1 max: 100.0 cm/sec PA V2 max: 108.8 cm/sec Ao max P.8 mmHg LV V1 max P.0 mmHg Ao V2 mean: 100.6 cm/sec Ao mean P.4 mmHg Ao V2 VTI: 29.3 cm TR max andrei: 257.4 cm/sec TR max P.5 mmHg Interpretation Summary The study was technically difficult. Contrast injection was performed. Left ventricular systolic function is normal. The estimated ejection fraction is 65 %. Mild concentric left ventricular hypertrophy. The left atrium is mildly enlarged. Trivial mitral valve insufficiency. Trivial tricuspid valve insufficiency. Right ventricular systolic pressure estimated to be 30 mmHg. There is evidence of diastolic dysfunction. Ordering Physician: Xavi Sommers Referring Physician: Odette Patel Performed By: Katherine Greenfield, MARTIN, RVT
--- NOTE | 2019-02-13 20:21 | PN.CARD_ITS ---
Subjectve: The patient is status post diagnostic cardiac catheterization and subsequent PCI to the LAD and LCx system. She denies ongoing chest discomfort or difficulty breathing. She states her only concern at the moment, since starting IV nitroglycerin at these for blood pressure control) is a headache and subsequent nausea/emesis. Objective: Vital Signs Temp Pulse Resp BP Pulse Ox 97.9 F 80 20 H 143/96 H 98 02/13/19 20:00 02/13/19 20:00 02/13/19 20:00 02/13/19 20:00 02/13/19 20:00 Oxygen Delivery Method Room Air Weight: 262 lb 12.656 oz Body Mass Index (BMI) 43.0 Intake and Output for Last 24 Hours 02/11/19 02/12/19 02/13/19 23:59 23:59 23:59 Intake Total 400 / 400 800 / 800 Output Total 400 / 400 Balance 400 / 400 400 / 400 General: Awake, Alert, Oriented x 3, Cooperative, No Acute Distress, Obese HEENT: Atraumatic, Normocephalic, PERRL, EOMI, Sclera Non Icteric Oral: Moist Mucosa Neck: Supple, Good ROM, No JVD Lungs: Clear to auscultation Cardiovascular: Regular Rhythm, Normal S1, Normal S2 Vascular: No Carotid Bruits, Normal Femoral Pulses, Normal Radial Pulses Abdomen: Bowel Sounds Present, Soft, Non Tender Extremities: No Cyanosis, No Clubbing, - - Bilateral venous varicosities; right radial artery and right femoral artery-pulse 2+/4+ without obvious bruit or hematoma Neurological: No Focal Motor or Sensory Deficit Psych/Mental Status: Appropriate 02/12/19 21:34: Troponin I < 0.015 02/13/19 05:11: WBC 9.3, RBC 4.18 L, Hgb 12.3, Hct 39.6, MCV 94.7, MCH 29.4, MCHC 31.1 L, Plt Count 189, MPV 10.7, Immature Gran % (Auto) 0.400, Neut % (Auto) 48.5, Lymph % (Auto) 41.1 H, [place] % (Auto) 7.2, Eos % (Auto) 2.4, Baso % (Auto) 0.4, Absolute Neuts (auto) 4.5, Nucleated RBC % 0 02/13/19 05:11: Sodium 140, Potassium 4.1, Chloride 109 H, Carbon Dioxide 27.0, Anion Gap 4 L, BUN 14, Creatinine 0.71, Est GFR (MDRD) Af Amer 113, Est GFR (MDRD) Non-Af 94, BUN/Creatinine Ratio 19.7, Glucose 95, Calcium 8.0 L 02/13/19 05:11: Triglycerides 111, Cholesterol 171, LDL Cholesterol 102, VLDL C holesterol 22, HDL Cholesterol 47 Rhythm: Sinus rhythm EKG: Sinus rhythm; no acute ECG changes Medical Necessity - Tobacco Use Smoking Status: Current every day smoker Tobacco Use: Cigarettes Assessment/Plan 1. CAD status post LAD and LCx PCI The patient is recuperating in the ICU. She has no ongoing acute symptoms of chest discomfort. She will need to continue cardiac medical therapy. This will include agents such as antiplatelet therapy, nitrates as needed, beta-blockers, lipid-lowering agents, etc. She will need continued future outpatient follow-up with cardiac rehabilitation and cardiovascular outpatient visits. 2. Hypertension She was placed on IV nitroglycerin based on concerns of hypertension. She has experienced post IV nitroglycerin headache with associated nausea/emesis. At the present time her antihypertensive therapy will be adjusted to allow her to decrease and discontinue IV nitroglycerin. She will be followed and reassessed as deemed appropriate. 3. Obesity She has been counseled on dietary therapy, exercise, etc. and attempt to bring her weight under better control. This note was generated using a voice recognition system and there may be incorrect words, spelling or punctuation that were not noted when reviewing the office note prior to saving.
[2019-02-13] MEDS: Metoclopramide 10 MG/2 ML Vial 5 MG IV (20:27)
--- NOTE | 2019-02-13 20:46 | NURSING ---
Pt states I think you did it. Pt commented that her nausea is completely gone and H/A is mostly alleviated. NTG gtt is currently titrated off and PRN Reglan 5mg IVP effective.
[2019-02-13] MEDS: TICAGRELOR 90 MG TABLET PO (21:08)
[2019-02-13] MEDS: Atorvastatin Calcium 80 MG Tablet PO (21:08)
[2019-02-13] MEDS: Metoprolol Tartrate 50 MG Tablet PO (21:09)
[2019-02-13] MEDS: amLODIPine 5 MG Tablet PO (21:09)
[2019-02-13] MEDS: hydrOXYzine PAM 25 MG Capsule 100 MG PO (21:09)
[2019-02-13] MEDS: Pramipexole Di-HCl 0.5 MG Tablet PO (21:09)
[2019-02-14] VITALS (16 sets, daily range): BP systolic 121–185; BP diastolic 65–110; PULSE 67–85; RESP 14–22; TEMP 36.6–36.9; O2SAT 95–98; BMI 43.2
[2019-02-14] MEDS: Acetaminophen 500 MG Tablet 1000 MG PO (06:18)
[2019-02-14 06:24] LABS: Hematocrit 39.8 % (37-47); Hemoglobin 12.4 g/dL (12.0-15.0); Mean Corp Hgb Conc 31.2 g/dL (32-36); Mean Corpuscular Hgb 30.1 pg (27.0-32.0); Mean Corpuscular Volume 96.6 fL (81-99); Mean Platelet Vol. 10.6 fl (6.2-12.0); Platelet Count 202 K/mm3 (150-450); RBC Distribution Width CV 13.9 % (11.6-14.6); RBC Distribution Width SD 49.3 fl (35.1-43.9); Red Blood Count 4.12 M/mm3 (4.2-5.4); White Blood Count 11.1 K/mm3 (4.4-11.0)
[2019-02-14 06:41] LABS: ALB/GLOB Ratio 1.1 RATIO (0.9-2.4); AST(SGOT) 15 U/L (15-37); Alanine Aminotransfer ALT/SGPT 31 U/L (13-56); Albumin, Serum 3.2 g/dL (3.2-5.0); Alkaline Phosphatase 64 U/L (45-117); Anion Gap 6 (5-15); BUN 10 mg/dL (7-18); BUN/Creat Ratio 15.4 RATIO (10-20); Calcium,Total 8.4 mg/dL (8.5-10.1); Chloride 108 mmol/L (98-107); Creatinine, Serum 0.65 mg/dL (0.55-1.02); EST Glomerular Filtration Rate 105 mL/min (>60); Est Glom Filt Rate - Afr Amer 127 mL/min (>60); Estimated Creatinine Clearance 97.31 ml/min; Glucose 96 mg/dL (74-106); Protein, Total 6.2 g/dL (6.4-8.2); Sodium Level 140 mmol/L (136-145)
--- NOTE | 2019-02-14 08:43 | PCM.PN.CARD ---
Subjectve: The patient is awake and alert with no new complaints. She states the headache, nausea, and emesis stopped after her IV NTG was weaned downed and off. Objective: Vital Signs Temp Pulse Resp BP Pulse Ox 98.5 F 76 21 H 158/102 H 97 02/14/19 04:00 02/14/19 06:00 02/14/19 06:00 02/14/19 06:00 02/14/19 06:00 Oxygen Delivery Method Room Air Weight: 262 lb 12.656 oz Body Mass Index (BMI) 43.0 Intake and Output for Last 24 Hours 02/12/19 02/13/19 02/14/19 23:59 23:59 23:59 Intake Total 400 / 400 1846.50 / 2086.50 790 / 790 Output Total 400 / 400 Balance 400 / 400 1446.50 / 1686.50 790 / 790 General: Awake, Alert, Oriented x 3, Cooperative, No Acute Distress, Obese HEENT: Atraumatic, Normocephalic, PERRL, EOMI, Sclera Non Icteric Oral: Moist Mucosa Neck: Supple, Good ROM, No JVD Lungs: Clear to auscultation Cardiovascular: Regular Rhythm, Normal S1, Normal S2 Vascular: No Carotid Bruits, Normal Femoral Pulses, Normal Radial Pulses Abdomen: Bowel Sounds Present, Soft, Non Tender Extremities: No Cyanosis, No Clubbing, No edema, - - Right radial artery area: slight ecchymosis; no bruit; no hematoma. Right femoral artery area: no bruit; no hematoma Neurological: No Focal Motor or Sensory Deficit Psych/Mental Status: Appropriate 02/13/19 05:11: Triglycerides 111, Cholesterol 171, LDL Cholesterol 102, VLDL Cholesterol 22, HDL Cholesterol 47 02/14/19 06:10: WBC 11.1 H, RBC 4.12 L, Hgb 12.4, Hct 39.8, MCV 96.6, MCH 30.1, MCHC 31.2 L, Plt Count 202, MPV 10.6 02/14/19 06:10: Sodium 140, Potassium 4.0, Chloride 108 H, Carbon Dioxide 26.0, Anion Gap 6, BUN 10, Creatinine 0.65, Est GFR (MDRD) Af Amer 127, Est GFR (MDRD) Non-Af 105, BUN/Creatinine Ratio 15.4, Glucose 96, Calcium 8.4 L, Total Bilirubin 0.60 Rhythm: sinus rhythm EKG: sinus rhythm ECHO: pending Stress Test: Interpretation Summary Abnormal (Adequate) Stress Echocardiogram Cardiac Cath: CORONARY ANGIOGRAPHY DOMINANCE: Right Dominant LEFT HEART ASSESSMENT Left Ventricular Ejection Fraction: by LV Gram 60 % Normal LV wall motion Elevated Left Ventricular End Diastolic Pressure LVEDP: 38 mmHg LEFT MAIN: Angiographically normal LEFT ANTERIOR DESCENDING ARTERY: MID LAD: Eccentric: 85 % Stenosis DIAGONAL 1: Ostial - 50 % Stenosis, Proximal - 25 % Stenosis CIRCUMFLEX ARTERY: PROX CIRC: Eccentic: 25 % Stenosis (serial stenosis) MID CIRC: 75 % Stenosis RIGHT CORONARY ARTERY: PROX RCA: 25 % Stenosis MID RCA: Mild luminal irregularities DISTAL RCA: Mild luminal irregularities VALVE FINDINGS: Normal Aortic Valve function Normal Mitral Valve function AORTIC ROOT: Angiographically normal PCI: CONCLUSIONS Successful PTCA/ALEX mid LAD with a 3.0 x 20 Promus Synergy, post dilated with a 3.0 x 8 NC Balloon; 75%-->-0%, no dissection. Successful PTCA/ALXE mid LCX with a 3.0 x 38 Promus Synergy, post dilated with a 3.0 and 3.5 x 12 NC Balloon; 75%-->0-%, no dissection. Medical Necessity - Tobacco Use Smoking Status: Current every day smoker Tobacco Use: Cigarettes Assessment/Plan 1. CAD status post LAD and LCx PCI The patient is recuperating in the ICU. She has no ongoing acute symptoms of chest discomfort. She will need to continue cardiac medical therapy. This will include agents such as antiplatelet therapy, nitrates as needed, beta-blockers, lipid-lowering agents, etc. She will need continued future outpatient follow-up with cardiac rehabilitation and cardiovascular outpatient visits. 2. Hypertension Her medications are being adjusted. She will continue medical therapy with beta blockers, addition of diuretics, continuation of ABRAN-I, and addition of dihydropyridine inhibitors (amlodipine), etc., with adjustment as needed. 3. Obesity She has been counseled on dietary therapy, exercise, etc. and attempt to bring her weight under better control. Overall, from a cardiac standpoint, if she remains symptomatically and hemodynamically stable, with no other acute findings, then hopefully she will be able to be discharged home later today with continued outpatient follow up. This note was generated using a voice recognition system and there may be incorrect words, spelling or punctuation that were not noted when reviewing the office note prior to saving.
--- NOTE | 2019-02-14 09:37 | CASEMGMT ---
RN CM Assessment Presentation: Chest Pain, PCI of LAD and LCx. Intro role of CM and purpose of RN CM assessment to patient in room. Pt is awake, alert and able to participate in assessment. Demographics, PCP and Pharmacy verified. Pt denies dc needs, states she is independent and denies difficulty anticipating f/u or prescriptions. PCP: Dr. Odette Patel Specialists: Dr. Sommers Preferred Pharmacy: [facility] Insurance: [email or web address] Prescription Benefit: yes. [employer] savings card given to patient and explained. LNOK: Sister, Odette Whitfield Living Arrangements: Lives independently. NO care needs per pt. Transportation: Drives DME: none HHC: none Patient DC goals: Home DC PLAN: Home. Lydia GARCIA RN ACM
--- NOTE | 2019-02-14 10:00 | EKG12_ITS ---
Test Reason : CP ADMIT Blood Pressure : / mmHG Vent. Rate : 074 BPM Atrial Rate : 074 BPM P-R Int : 130 ms QRS Dur : 088 ms QT Int : 434 ms P-R-T Axes : 008 058 030 degrees QTc Int : 481 ms Normal sinus rhythm Prolonged QT Abnormal ECG When compared with ECG of 12-FEB-2019 15:38, MANUAL COMPARISON REQUIRED, DATA IS UNCONFIRMED Confirmed by JUNAID WALDEN ([id number]), video tape editor AMERICA GONZÁLES ([id number]) on 02/19/2019 2:43:23 PM Referred By: DR COBOS Confirmed By:JUNAID WALDEN
--- NOTE | 2019-02-14 10:02 | DCINST_ITS ---
- Discharge Diagnoses Current Active Problems: Current Active and Chronic Problems Chest pain (Acute) HTN (hypertension) (Chronic) Morbid obesity (Chronic) Abnormal stress test (Acute) You will use the following diet at home:: Cardiac Discharge Activity: - - activity as tolerated Weight Bearing Status: Weight bearing as tolerated Call your doctor if your incision/area has: Continuous Slow Oozing, Sudden Increased Bleeding, Increased Pain/ Swelling, Increased Redness Call your doctor if you observe: Chest pain Instructions: CHEST PAIN, NonCardiac, Recognizing a Heart Attack or Angina, An dany Allergies/Adverse Reactions: Allergies No Known Allergies Allergy (Verified 02/12/19 15:38) Medications to take at Discharge Hydroxyzine HCl 100 mg PO QHS 02/12/19 Lisinopril [Zestril] 40 mg PO DAILY 02/12/19 Ropinirole HCl 1 mg PO QHS 02/12/19 Acetaminophen [Tylenol] 1,000 mg PO TID PRN tablet 02/14/19 Aspirin E.C. [Ecotrin] 81 mg PO DAILY@0800 tablet 02/14/19 Atorvastatin Calcium [Lipitor] 80 mg PO QHS #30 tab 02/14/19 Hydrochlorothiazide [Hctz] 25 mg PO DAILY #30 tab 02/14/19 Metoprolol Tartrate [Lopressor (beta venita)] 50 mg PO BID #60 tab 02/14/19 Nitroglycerin (INPATIENT USE) [Nitrostat] 0.4 mg SUBLINGUAL Q5M PRN #10 tab.subl 02/14/19 Ticagrelor [Brilinta] 90 mg PO BID #60 tab 02/14/19 The following prescriptions were given: Ticagrelor [Brilinta] 90 mg PO BID #60 tab Prescription Printed Hydrochlorothiazide [Hctz] 25 mg PO DAILY #30 tab Prescription Printed Atorvastatin Calcium [Lipitor] 80 mg PO QHS #30 tab Prescription Printed Metoprolol Tartrate [Lopressor (beta venita)] 50 mg PO BID #60 tab Prescription Printed Nitroglycerin (INPATIENT USE) [Nitrostat] 0.4 mg SUBLINGUAL Q5M PRN #10 tab.subl PRN Reason: Chest Pain Prescription Printed Primary Care Physician: Odette Patel NP-C [Primary Care Provider] - Within 2 Weeks Test Results: Test results from this visit will be discussed in further detail at your follow- up appointment, if applicable. Please Follow Up With: Xavi Sommers MD - cardiology follow up. When: 1-2 weeks Proposed Discharge Date: 02/14/19
--- NOTE | 2019-02-14 10:06 | PCM.DC.SUM ---
Discharge Date and Diagnosis - Problem List Patient Problems: Active and Suspected Problems Unstable angina (Acute) Chest pain (Acute) Abnormal stress test (Acute) Date of Admission: 02/12/19 Date of Discharge: 02/14/19 - Primary Discharge Diagnosis Active and Suspected Problems Unstable angina (Acute) Chest pain (Acute) Abnormal stress test (Acute) - Secondary Discharge Diagnosis Chronic Problems HTN (hypertension) (Chronic) Morbid obesity (Chronic) Hospital Course and Treatment Imaging Results: Clinical Impression(s) from Imaging Studies Chest X-Ray 02/12/19 16:04 IMPRESSION: Normal x-ray examination of the chest. No acute intrathoracic process. No evidence of pneumonia or CHF. Electronically Signed: Timi Tam MD at 16:33 EDT Tel [phone], Service support , Xavi Sernapaw: cardiology Operations: None Procedures: Cardiac catheterization, Stress test Summary of Care Provided: The patient is a 48 year old F presents with chest pain for several weeks. Pain will go down her left arm. Patient was admitted and brought in and had a stress test. Stress test was abnormal and then patient underwent a left heart catheterization that was also abnormal. Patient underwent percutaneous coronary intervention with drug-eluting stents to the mid circumflex as well as the mid LAD. Ejection fraction was calculated at 60%. Patient was initiated on Brilinta, aspirin, atorvastatin, metoprolol. Hydrocort thiazide was added for blood pressure control and patient will continue with her home dose of lisinopril. Patient will follow-up with the cardiology in the office for further follow-up. [] Patient Problems: Active and Suspected Problems Unstable angina (Acute) Chest pain (Acute) Abnormal stress test (Acute) - Physical Exam General: Alert, No apparent distress HEENT: Atraumatic, Normocephalic Oral: Moist Mucosa, No Gingival or Mucosal Lesions/ Ulcerations Neck: No Nodes, Thyroid Normal Size and Texture Lungs: Clear to auscultation, Normal air movement, No rhonchi, No wheeze, No rales Cardiovascular: Regular rate, Regular Rhythm, Normal S1, Normal S2, No murmurs Abdomen: Bowel Sounds Present, Soft, Non Tender, Non-Distended Extremities: No edema, No Calf Tenderness Vital Signs Temp Pulse Resp BP Pulse Ox 36.6 C 77 17 177/110 H 98 02/14/19 07:00 02/14/19 09:00 02/14/19 09:00 02/14/19 09:00 02/14/19 09:00 Oxygen Delivery Method Room Air Weight: 119.2 kg Body Mass Index (BMI) 43.0 Intake and Output for Last 24 Hours 02/12/19 02/13/19 02/14/19 23:59 23:59 23:59 Intake Total 400 / 400 1846.50 / 2086.50 790 / 790 Output Total 400 / 400 Balance 400 / 400 1446.50 / 1686.50 790 / 790 Laboratory Tests Past 24 Hrs 02/13/19 02/13/19 02/13/19 05:11 10:10 14:58 WBC RBC Hgb Hct MCV MCH MCHC RDW Std Deviation RDW Coeff of Brissa Plt Count MPV Activated Clotting Time 169 H Sodium Potassium Chloride Carbon Dioxide Anion Gap BUN Creatinine Estim Creat Clear Calc Est GFR (MDRD) Af Amer Est GFR (MDRD) Non-Af BUN/Creatinine Ratio Glucose Calcium Total Bilirubin AST ALT Alkaline Phosphatase Total Protein Albumin Globulin Albumin/Globulin Ratio Triglycerides 111 Cholesterol 171 LDL Cholesterol 102 VLDL Cholesterol 22 HDL Cholesterol 47 Serum , Qual NEGATIVE 02/14/19 02/14/19 06:10 06:10 WBC 11.1 H RBC 4.12 L Hgb 12.4 Hct 39.8 MCV 96.6 MCH 30.1 MCHC 31.2 L RDW Std Deviation 49.3 H RDW Coeff of Brissa 13.9 Plt Count 202 MPV 10.6 Activated Clotting Time Sodium 140 Potassium 4.0 Chloride 108 H Carbon Dioxide 26.0 Anion Gap 6 BUN 10 Creatinine 0.65 Estim Creat Clear Calc 97.31 Est GFR (MDRD) Af Amer 127 Est GFR (MDRD) Non-Af 105 BUN/Creatinine Ratio 15.4 Glucose 96 Calcium 8.4 L Total Bilirubin 0.60 AST 15 ALT 31 Alkaline Phosphatase 64 Total Protein 6.2 L Albumin 3.2 Globulin 3.0 Albumin/Globulin Ratio 1.1 Triglycerides Cholesterol LDL Cholesterol VLDL Cholesterol HDL Cholesterol Serum , Qual Discharge Diet: Low fat/ Low Cholesterol Discharge Activity: - - activity as tolerated Weight Bearing Status: Weight bearing as tolerated Call your doctor if your incision/area has: Continuous Slow Oozing, Sudden Increased Bleeding, Increased Pain/ Swelling, Increased Redness Call your doctor if you observe: Chest pain Home Medications: Medications to take at Discharge Hydroxyzine HCl 100 mg PO QHS 02/12/19 Lisinopril [Zestril] 40 mg PO DAILY 02/12/19 Ropinirole HCl 1 mg PO QHS 02/12/19 Acetaminophen [Tylenol] 1,000 mg PO TID PRN tablet 02/14/19 Aspirin E.C. [Ecotrin] 81 mg PO DAILY@0800 tablet 02/14/19 Atorvastatin Calcium [Lipitor] 80 mg PO QHS #30 tab 02/14/19 Hydrochlorothiazide [Hctz] 25 mg PO DAILY #30 tab 02/14/19 Metoprolol Tartrate [Lopressor (beta venita)] 50 mg PO BID #60 tab 02/14/19 Nitroglycerin (INPATIENT USE) [Nitrostat] 0.4 mg SUBLINGUAL Q5M PRN #10 tab.subl 02/14/19 Ticagrelor [Brilinta] 90 mg PO BID #60 tab 02/14/19 Following Prescrptions Were Given to Patient: Ticagrelor [Brilinta] 90 mg PO BID #60 tab Prescription Printed Hydrochlorothiazide [Hctz] 25 mg PO DAILY #30 tab Prescription Printed Atorvastatin Calcium [Lipitor] 80 mg PO QHS #30 tab Prescription Printed Metoprolol Tartrate [Lopressor (beta venita)] 50 mg PO BID #60 tab Prescription Printed Nitroglycerin (INPATIENT USE) [Nitrostat] 0.4 mg SUBLINGUAL Q5M PRN #10 tab.subl PRN Reason: Chest Pain Prescription Printed Primary Care Physician: Odette Patel NP-C [Primary Care Provider] - Within 2 Weeks Please Follow Up With: Xavi Sommers MD - cardiology follow up. When: 1-2 weeks Patient Instructions: Recognizing a Heart Attack or Angina, Angina, CHEST PAIN, NonCardiac Disposition: Home Minutes spent on discharge:: 32 Patient Condition:: Good Medical Necessity - Tobacco Use Smoking Status: Current every day smoker Tobacco Use: Cigarettes Meaningful Use Info Meaningful Use Diagnoses (Choose all that apply): None applicable Code Visit Inpatient E&M: 28252 Disch Hosp
[2019-02-14] MEDS: hydroCHLOROthiazide 25 MG Tablet PO (10:10)
[2019-02-14] MEDS: Lisinopril 20 MG Tablet PO (10:10)
[2019-02-14] MEDS: Metoprolol Tartrate 50 MG Tablet PO (10:11)
[2019-02-14] MEDS: TICAGRELOR 90 MG TABLET PO (10:11)
[2019-02-14] MEDS: Aspirin E.C. 81 MG Tablet PO (10:11)
--- NOTE | 2019-02-14 13:58 | CRPHASE1 ---
Patient Communication PHII Cardiac Rehab Discussed with Patient:: Yes Guide to Cardiac Rehab Given to Patient:: Yes Cardiac Rehab Facility Choice List Given to Patient:: Yes - [facility] Choice Program [facility] CR PHII:: Communication Given to CR, Refer to [facility] Nurse'S Assistant:: Odette Patel PCP:: Tommy Walker Sessions:: 36 sessions - 3 days/wk, 12 weeks Risk Factors/Lifestyle Smoking Status: Current every day smoker Packs Smoked per Day: 1 Hx Hypertension: Yes - ON MEDS Hx Diabetes Mellitus Type 2: No Hx Obesity: Yes Height: 1.66 m Weight:: 119.2 kg BMI: 43.2 ETOH: Yes Caffeine: Yes Substance Abuse: No Laboratory Values: Cardiac Rehab Phase I Labs 5.8 % (4.2-6.3) 02/12/19 15:45 Triglycerides 111 mg/dL (-199) 02/13/19 05:11 Cholesterol 171 mg/dL (200) 02/13/19 05:11 102 mg/dL (0-130) 02/13/19 05:11 47 mg/dL (40-) 02/13/19 05:11 Phase I Education Given On:: [place], Nutrition Issues Affecting Care:: None Hospital Course Pain Description: Tightness, Pressure Cardiac Cath Date:: 02/13/19 Medical/Surgical History MO:: No Angina:: Yes Diabetes:: No Diabetes Type II:: No Hypertension:: Yes - ON MEDS CABG: No PTCA:: No ICD:: No Pacemaker:: No Discharge/Home/Social Eval Discharge Disposition: Home Marital Status: Single Cardiac Rehabilitation Info Cardiac Rehabilitation Program Information: Cardiac Rehabilitation is important for patients like you who are recovering from a heart problem. Cardiac rehabilitation programs are recognized as integral to the continued care of the patient with coronary heart disease. The cardiac rehabilitation program is designed to optimize a patient's physical, psychological, and social functioning. Health healthcare customer service work in cardiac rehabilitation programs and assist you with getting the treatments you need to get stronger and healthier - like exercise, healthy eating habits, and medications. Cardiac rehabilitation has been show to help people with heart problems live longer and have better life enjoyment than people who do not go to cardiac rehabilitation. Please contact the Cardiac Rehabilitation Program at [facility] at in two weeks if you have not heard from them.
== END 2019-02-14 13:00 | disposition home or self-care (01) ==
LOC: ED 16:11 → PCU 17:34 → ICU 02-13 14:39
PROVIDERS: Internal Medicine Cardiovascular Disease; Nurse Practitioner Family; Admitting Provider Internal Medicine; Emergency Provider Emergency Medicine; Family Provider Nurse Practitioner Family; PCP Nurse Practitioner Family
DX: I25.110 Atherosclerotic heart disease of native coronary artery with unstable angina pectoris (principal); I10 Essential (primary) hypertension; F17.210 Nicotine dependence, cigarettes, uncomplicated; E66.01 Morbid (severe) obesity due to excess calories; F41.9 Anxiety disorder, unspecified; F32.9 Major depressive disorder, single episode, unspecified; G25.81 Restless legs syndrome; Z79.899 Other long term (current) drug therapy; Z68.41 Body mass index [BMI] 40.0-44.9, adult; J06.9 Acute upper respiratory infection, unspecified; R94.39 Abnormal result of other cardiovascular function study
CPT/HCPCS: 36415; 71045; 80048; 80053; 80061; 82962; 83036; 84484; 84703; 85025; 85027; 85347; 92928; 93005; 93017; 93306; 93350; 93458; 96361; 96365; 96366; 96375; 96376; 97802; 99152; 99153; 99218; 99285; 99406; C1760; J7030; Q9957; Q9967; A4216; C1725; C1769; C1874; C1887; C1894; C8928; C8929; C9600; G0378; J2405

== ENCOUNTER 2019-03-12 20:38 | Observation (INO) | payer BC, SELFPAY ==
[2019-02-14 14:10] VITALS: BMI 43.2
[2019-03-02 13:54] VITALS: BMI 44.1
[2019-03-12 20:44] VITALS: BP 143/107; PULSE 88; RESP 22; TEMP 37.6; O2SAT 96; BMI 43.9
--- NOTE | 2019-03-12 21:19 | EKG12_ITS ---
Test Reason : CP Blood Pressure : / mmHG Vent. Rate : 087 BPM Atrial Rate : 087 BPM P-R Int : 134 ms QRS Dur : 094 ms QT Int : 380 ms P-R-T Axes : 027 056 024 degrees QTc Int : 457 ms Normal sinus rhythm [id number] Confirmed by SHIRA WALTERS, FLORA ([id number]), newspaper editor AMERICA GONZÁLES ([id number]) on 03/14/2019 2:05:48 PM Referred By: Confirmed By:FLORA SILVA MD
--- NOTE | 2019-03-12 21:19 | RAD_ITS ---
STUDY: X-RAY CHEST REASON FOR EXAM: Female, 48 years old. Heart stents put in 3 weeks ago. Worsening chest pain. TECHNIQUE: Single AP portable view of the chest. COMPARISON: February 12, 2019. FINDINGS: The lungs are clear and expanded. There is no demonstrated pleural abnormality. Normal size heart. Normal mediastinum and teresa. Normal visualized pulmonary arteries. Normal visualized aortic arch and descending thoracic aorta. Normal visualized thoracic spine. Normal visualized ribs, clavicles, and shoulders. There is no demonstrated abnormality of the visualized soft tissue structures of the upper abdomen. RAD/Chest 1 View (Portable) IMPRESSION: No acute cardiopulmonary disease or major interval change. Electronically Signed: Jefferson Herron DO at 21:40 EDT Tel [phone], Service support ,
[2019-03-12 21:30] LABS: Absolute Lymphocyte Count 3.76 X10^3/uL (0.83-4.51); Absolute Neutrophil Count 4.9 X10^3/uL (2.0-7.7); Basophil# 0.04 X10^3/uL; Basophil% 0.4 % (0-1); Eosinophil# 0.15 X10^3/uL; Eosinophils% 1.5 % (0-5); Hematocrit 42.2 % (37-47); Hemoglobin 13.8 g/dL (12.0-15.0); Lymphocyte # 3.76 X10^3/ul (4.0); Lymphocyte % 38.4 % (19-41); Mean Corp Hgb Conc 32.7 g/dL (32-36); Mean Corpuscular Volume 91.7 fL (81-99); Mean Platelet Vol. 10.5 fl (6.2-12.0); Monocyte# 0.86 X10^3/uL; Monocyte% 8.8 % (0-10); NRBC Flagged by Analyzer 0 % (0-5); Neutrophil # 4.93 X10^3/uL (2.7-7.7); Neutrophil % 50.5 % (47-70); Platelet Count 247 K/mm3 (150-450); RBC Distribution Width CV 12.7 % (11.6-14.6); RBC Distribution Width SD 42.7 fl (35.1-43.9); White Blood Count 9.8 K/mm3 (4.4-11.0)
--- NOTE | 2019-03-12 21:45 | ED.DCSUM_ITS ---
History of Present Illness Chief Complaint: Chest Pain Detail of Chief Complaint: Midsternal chest pain Informant: Patient Onset: Days Context: Sudden Onset Timing: Intermittent Quality: Discomfort mid chest and shortness of breath Location: Mid chest Current Severity: Mild Maximum Severity: Moderate Worsened by: Activity/exertion Relieved by: Improves with nitro Associated Symptoms: Radiation left arm Narrative: Patient is a 48-year-old woman who had a cardiac catheterization performed recently by Dr. Walker. She had a stent placed mid LAD and mid circumflex. 3 presents with chest pain that she is had since the cardiac cath. She had also shortness of breath since a cardiac cath. She contacted Dr. Walker's office several days ago. She states she was not able to be seen. Because the pain persists/recurs she presents to the emergency department. Presently her major complaint is dyspnea. She states she is compliant with all the meds she was prescribed. She states she has decreased the amount she smokes significantly. Prior similar symptoms: Yes Recent Illness/Hospitalization: Yes - Past Medical History (1) Unstable angina Status: Acute (2) Atherosclerotic heart disease of [place] coronary artery without angina pectoris Status: Chronic (3) HTN (hypertension) Status: Chronic (4) Hyperlipidemia Status: Chronic (5) Morbid obesity Status: Chronic (6) S/P coronary artery stent placement Status: Chronic Comment: PTCA/ALEX to mid LAD and mid LCX 02/13/19 Past Medical History - Allergies and Home Meds Allergies/Adverse Reactions: Allergies No Known Allergies Allergy (Verified 03/12/19 20:44) Primary Care Physician: Odette Patel NP-C [Primary Care Provider] - Prior records reviewed: Yes Surgical History: no surgical history Lives: Alone Smoking Status: Current every day smoker Alcohol: None Drugs: None - Family History Maternal Family History: Family History (Last Updated 03/02/19 @ 14:34 by DULCE MARIA Burnette) Father Sudden cardiac Other Hypertension Family History: Reports: Heart Disease - Bypass Paternal Family History: Family History (Last Updated 03/02/19 @ 14:34 by DULCE MARIA Burnette) Father Sudden cardiac Other Hypertension Family History: Reports: - - Past from [place] in his late 30s Review of Systems General: Denies: Chills, Fever, Sweats Eyes: Denies: Visual changes - bilaterally, Diplopia ENT: Denies: Rhinorrhea, Sore throat Cardiovascular: Reports: Chest pain Respiratory: Reports: Dyspnea, Dyspnea on exertion. Denies: Cough, Sputum, Orthopnea, Paroxysmal nocturnal dyspnea, -, - Gastrointestinal: Denies: Abdominal pain, Nausea, Vomiting, Diarrhea, Melena, Hematochezia Genitourinary: Denies: Dysuria, Hematuria, Frequency Musculoskeletal: Denies: Back pain, Extremity Pain Skin: Denies: Rash, Wounds Neurological: Denies: Headache, Weakness, Numbness Hematologic: Reports: Easy bruising. Denies: Easy bleeding Allergy: Denies: Uticaria, Swelling of the mouth Physical Exam Vital Signs/Narrative: Vital Signs Temp Pulse Resp BP Pulse Ox 03/12/19 20:44 99.7 F H 88 22 H 143/107 H 96 Inital Vital Signs reviewed: Yes General: Well nourished, Well developed, Obese, - - Appears tachypneic. Head: Normocephalic, Atraumatic Eyes: Perrl, EOMI. Negative for: Pale conjunctiva, Scleral icterus ENT: Moist mucous membranes, No rhinorrhea, TM's clear Neck: Supple, Nontender, No lymphadenopathy, No JVD Cardiovascular: Regular rate, Regular rhythm, No murmurs, Normal S1, Normal S2 Respiratory: No distress, CTA bilaterally, Chest nontender Abdomen: Soft, Nontender, Nondistended, Normal bowel sounds Back: Nontender, Normal Inspection Extremities: Nontender, No edema Skin: Normal color, No rash, No Trauma. Negative for: Cyanosis, Diaphoresis, Jaundice Neurological: Alert, Oriented x3, Cranial nerves II-XII grossly intact, Normal Strength, Normal Sensation, Normal DTR Psychological: Normal affect, Normal Mood Diagnostic/Tx/Re-eval Chest X-Ray - ED: 1 View, Read by ED Physician, Normal, Heart, Lungs, Mediastinum, Bony Structures, No Acute Disease, - - Unchanged from prior - Rhythm Strip Rhythm Strip: Sinus Rhythm Rate: 78 Ectopy: None - EKG Initial EKG Interpretation: Sinus Rhythm - Sinus rhythm with a ventricular rate 87. MT interval 134 ms. QRS duration 94 ms. QT duration 380 ms. Rawson is normal. The EKG is normal with symptoms. - Medical Decision Making Differential chest pain is secondary to statins, noncardiac etiology, Fernando syndrome, GI etiology pulmonary etiology. EKG, chest x-ray and blood work was obtained. Patient's work-up was unremarkable. Patient had a cardiac catheterization performed on February 13. Cardiac catheterization revealed numerous lesions. There was a 25% lesion noted proximal diagonal and another lesion noted at the first ostium diagonal. Multiple lesions were noted in the circumflex and right coronary artery. Case was discussed Dr. Vincent. Requested dose of Lovenox and stress test in the morning. ED Disposition - Plan for ED Patient: Disposition: Home or Assisted Living Diagnosis: Chest pain, History of atherosclerotic heart disease, HTN (hypertension), Hyp erlipidemia, Morbid obesity Referrals: Odette Patel, MARGARITO-C [Primary Care Provider] -
[2019-03-12 21:46] VITALS: O2SAT 98
[2019-03-12] MEDS: Aspirin 81 MG TAB.CHEW 324 MG PO (21:48)
[2019-03-12 21:51] LABS: Anion Gap 6 (5-15); BUN 19 mg/dL (7-18); BUN/Creat Ratio 15.8 RATIO (10-20); Calcium,Total 9.1 mg/dL (8.5-10.1); Chloride 109 mmol/L (98-107); EST Glomerular Filtration Rate 51 mL/min (>60); Est Glom Filt Rate - Afr Amer 62 mL/min (>60); Estimated Creatinine Clearance 52.71 ml/min; Glucose 92 mg/dL (74-106); Potassium 3.8 mmol/L (3.5-5.1); Sodium Level 140 mmol/L (136-145)
[2019-03-12] MEDS: Nitroglycerin SL (ED/IMG/CATH) 0.4 MG TABLET SUBLINGUAL (21:53)
[2019-03-12 22:10] VITALS: BP 136/82; PULSE 82; RESP 16; O2SAT 97
[2019-03-12] MEDS: Morphine 4 MG/ML Syringe IV (22:12)
[2019-03-12 22:14] VITALS: TEMP 37.4
--- NOTE | 2019-03-12 22:20 | HP.PCM_ITS ---
Problem List (1) Chest pain Status: Acute History of Present Illness Date of Admission: 03/12/19 Chief Complaint: chest pain The patient is a 48 year old F with a significant history of CAD status post stent; hypertension; hyperlipidemia; restless leg syndrome who presented to emergency department with 1 day history of progressively worsening chest pain. She rates her pain as 8 out of 10. She describes her chest pain as burning. Her chest pain radiated to her upper back. Associated with her symptoms is nausea and vomiting. She denies diaphoresis. Of note patient had drug-eluting stent placed in her LAD and circumflex on 02/13/2019. Reportedly emergency department doctor discussed the case with science faculty member. Cardiology recommended therapeutic dose of Lovenox and stress test in a.m. Past Medical History Past Medical History (Chronic Problems): Chronic Problems (Last Reviewed 03/12/19 @ 23:04 by Drew Gonzáles MD) Hyperlipidemia (Chronic) Atherosclerotic heart disease of [place] coronary artery without angina pectoris (Chronic) S/P coronary artery stent placement (Chronic ~02/13/19) PTCA/ALEX to mid LAD and mid LCX 02/13/19 HTN (hypertension) (Chronic) Morbid obesity (Chronic) Medical History: Medical History (Last Reviewed 03/13/19 @ 07:18 by Drew Gonzáles MD) Hyperlipidemia (Chronic) E78.5 Atherosclerotic heart disease of [place] coronary artery without angina pectoris (Chronic) I25.10 HTN (hypertension) (Chronic) I10 Allergies No Known Allergies Allergy (Verified 03/12/19 20:44) Home Medications: Ambulatory Orders Medication Instructions Recorded Hydroxyzine HCl 100 mg PO TID PRN 02/12/19 Ropinirole HCl 1 mg PO QHS 02/12/19 Acetaminophen [Tylenol] 1,000 mg PO TID PRN tab 02/14/19 Aspirin E.C. [Ecotrin] 81 mg PO DAILY@0800 tab 02/14/19 Atorvastatin Calcium [Lipitor] 80 mg PO QHS #30 tab 02/14/19 Nitroglycerin (INPATIENT USE) 0.4 mg SUBLINGUAL Q5M PRN #10 02/14/19 [Nitrostat] tab.subl hydrochlorothiazide 25 mg tablet 25 mg PO DAILY #30 tab 03/02/19 lisinopril 40 mg tablet 40 mg PO DAILY #30 tab 03/02/19 metoprolol tartrate 50 mg tablet 50 mg PO BID #60 tab 03/02/19 ticagrelor 90 mg tablet 90 mg PO BID #60 tab 03/02/19 Surgical History: Surgical History (Last Reviewed 03/13/19 @ 04:05 by Drew Gonzáles MD) S/P coronary artery stent placement (Chronic) Onset Date: ~02/13/19 Z95.5 PTCA/ALEX to mid LAD and mid LCX 02/13/19 Psychiatric History: Anxiety, Depression 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 Her father with massive heart attack at age 38. Her paternal grandfather from heart attack when he was young. Paternal Family History: Family History (Last Reviewed 03/13/19 @ 04:05 by Drew Gonzáles MD) Father Sudden cardiac Other Hypertension History Items: - - Past from [place] in his late 30s Review of Systems Constitutional: Denies: Chills, Fever, Weight Change HEENT: Denies: Head Aches, Sinus Congestion, Sinus Drainage Cardiovascular: Reports: Chest Pain. Denies: Palpitations Respiratory: Reports: Shortness of Breath. Denies: Cough Gastrointestinal: Reports: Nausea, Vomiting. Denies: Abdominal Pain Genitourinary: Denies: Dysuria Musculoskeletal: Reports: Back Pain. Denies: Joint Pain, Joint Tenderness Skin: Denies: Rash, Wounds Neurological: Denies: Numbness, Tingling, Focal weakness Psychiatric: Denies: Anxiety, Depression, Homicidal Ideations, Suicidal Ideations Hematologic/ Lymphatic: Denies: Easy Bruising, Easy Bleeding VTE Information - Inpt Only VTE Present on Admission: No VTE Mechan Device Prophylaxis: None VTE Pharm Prophylaxis ordered?: No Reason prophylaxis not ordered:: Treatment Not Indicated - Not indicated since patient has been given therapeutic dose of Lovenox for her chest pain. Patient Problems: Active and Suspected Problems (Last Reviewed 03/12/19 @ 23:04 by Drew Gonzáles MD) History of atherosclerotic heart disease (Acute) Chest pain (Acute) - Physical Exam General: Alert, Oriented x3, Cooperative HEENT: Atraumatic, PERRLA, EOMI, Normocephalic Neck: Supple, No JVD, Negative Carotid Bruits Lungs: Clear to auscultation, Normal air movement Cardiovascular: Regular rate, No murmurs Abdomen: Bowel Sounds Present, Soft, Non Tender Extremities: No edema, Capillary Refill Less than 3 Seconds Skin: No rashes, No breakdown Musculoskeletal: No Tenderness to Palpation of Joints or Extremities Neurological: Cranial nerves II-XII grossly intact Psych/Mental Status: Normal Affect, Appropriate Vital Signs Temp Pulse Resp BP Pulse Ox 99.4 F H 82 16 136/82 H 97 03/12/19 22:14 03/12/19 22:10 03/12/19 22:10 03/12/19 22:10 03/12/19 22:10 Oxygen Delivery Method Room Air Weight: 119.7 kg Body Mass Index (BMI) 43.9 Laboratory Tests Past 24 Hrs 03/12/19 03/12/19 21:14 21:14 WBC 9.8 RBC 4.60 Hgb 13.8 Hct 42.2 MCV 91.7 MCH 30.0 MCHC 32.7 RDW Std Deviation 42.7 RDW Coeff of Brissa 12.7 Plt Count 247 MPV 10.5 Immature Gran % (Auto) 0.400 Neut % (Auto) 50.5 Lymph % (Auto) 38.4 [place] % (Auto) 8.8 Eos % (Auto) 1.5 Baso % (Auto) 0.4 Absolute Neuts (auto) 4.9 Absolute Lymphs (auto) 3.76 Nucleated RBC % 0 Sodium 140 Potassium 3.8 Chloride 109 H Carbon Dioxide 25.0 Anion Gap 6 BUN 19 H Creatinine 1.20 H Estim Creat Clear Calc 52.71 Est GFR (MDRD) Af Amer 62 Est GFR (MDRD) Non-Af 51 L BUN/Creatinine Ratio 15.8 Glucose 92 Calcium 9.1 Troponin I < 0.015 Assessment/Plan All Active Problems (Last Reviewed 03/12/19 @ 23:04 by Drew Gonzáles MD) History of atherosclerotic heart disease (Acute) Chest pain (Acute) The patient is a 48 year old F with a significant history of CAD status post stent on 02/13/2019; hypertension; hyperlipidemia; restless leg syndrome who presented to emergency department with 1 day history of progressively worsening chest pain. Chest pain Admit to a monitored bed on PCU CXR independently reviewed confirms no acute cardiopulmonary process. EKG independently reviewed confirms normal sinus rhythm Review of old records show that on 02/13/2019 patient had a successful drug- eluting stent placed in mid LAD and also mid left circumflex. Also patient had other areas of mild luminal irregularities and minor stenosis. Continue ASA 81 mg p.o. daily. Continue Brilinta Morphine as needed for pain Statin: Continue high intensity statin Serial cardiac enzymes Stat EKG as needed for chest pain Treadmill stress test in the AM if the cardiac enzymes are negative. Therapeutic Lovenox was given at the emergency department per cardiology recommendation. Case was discussed with cardiology in the emergency department. We will consult cardiology inpatient. NICOLA On presentation her creatinine was 1.20 Review of old records shows creatinine baseline at about 0.8. BUN is 19. Review of old records show that is the highest BUN so far. BUN over creatinine is 15.8 pointing towards intrinsic renal. However cannot rule out prerenal etiology leading to ATN. Avoid nephrotoxic's. Accordingly would hold home hydrochlorthiazide and lisinopril. Gentle IV hydration. Trend BMP. Hypertension On presentation her blood pressure was not within goal Home metoprolol continued. Hydrochlorthiazide and lisinopril held because of NICOLA. Will add PRN hydralazine. Trend blood pressure and adjust blood pressure medication. Tobacco abuse Counseled Nicotine patch ordered DVT prophylaxis Not indicated since patient has been given therapeutic dose of Lovenox. Code Visit OBSV E&M: 80347 Initial observation care L3
[2019-03-12] MEDS: Enoxaparin 120 MG/0.8 ML Syringe SC (22:34)
[2019-03-12 22:52] VITALS: BP 141/76; BP 157/108; PULSE 81; RESP 17; TEMP 36.9; O2SAT 96
--- NOTE | 2019-03-12 22:57 | EKG12_ITS ---
Test Reason : CP ADMIT Blood Pressure : / mmHG Vent. Rate : 071 BPM Atrial Rate : 071 BPM P-R Int : 132 ms QRS Dur : 090 ms QT Int : 418 ms P-R-T Axes : 025 049 030 degrees QTc Int : 454 ms Normal sinus rhythm Borderline Low voltage QRS [id number] Borderline ECG Confirmed by SHIRA WALTERS, FLORA ([id number]), department editor AMERICA GONZÁLES ([id number]) on 03/14/2019 2:26:15 PM Referred By: DR ART Confirmed By:FLORA SILVA MD
[2019-03-12 22:59] VITALS: PULSE 82
[2019-03-12 23:00] VITALS: BMI 43.2
[2019-03-12 23:12] VITALS: BMI 43.3
[2019-03-13] VITALS (21 sets, daily range): BP systolic 124–165; BP diastolic 68–104; PULSE 56–81; RESP 9–18; TEMP 36.4–37.1; O2SAT 94–99
[2019-03-13] MEDS: 0.9% Normal Saline 1,000 ML 100 ML IV ×2 (00:09→13:02)
[2019-03-13] MEDS: 0.9% NaCl Peripheral Flush Adult/Peds IV ×3 (00:09→13:02)
[2019-03-13] MEDS: Atorvastatin Calcium 80 MG Tablet PO ×2 (00:17→21:21)
[2019-03-13] MEDS: Metoprolol Tartrate 50 MG Tablet PO ×3 (00:17→21:18)
[2019-03-13] MEDS: TICAGRELOR 90 MG TABLET PO ×2 (00:17→22:20)
[2019-03-13] MEDS: Acetaminophen 500 MG Tablet 1000 MG PO ×3 (00:18→17:58)
[2019-03-13] MEDS: Morphine 2 MG/ML Syringe IV ×4 (02:36→20:01)
[2019-03-13 04:00] LABS: Anion Gap 8 (5-15); BUN 21 mg/dL (7-18); Calcium,Total 8.7 mg/dL (8.5-10.1); Chloride 109 mmol/L (98-107); Creatinine, Serum 0.91 mg/dL (0.55-1.02); EST Glomerular Filtration Rate 70 mL/min (>60); Est Glom Filt Rate - Afr Amer 85 mL/min (>60); Estimated Creatinine Clearance 69.51 ml/min; Glucose 110 mg/dL (74-106); Potassium 3.8 mmol/L (3.5-5.1); Sodium Level 142 mmol/L (136-145)
--- NOTE | 2019-03-13 05:55 | EKG12_ITS ---
Test Reason : AM EKG Blood Pressure : / mmHG Vent. Rate : 061 BPM Atrial Rate : 061 BPM P-R Int : 146 ms QRS Dur : 090 ms QT Int : 442 ms P-R-T Axes : 033 066 030 degrees QTc Int : 444 ms Normal sinus rhythm Normal ECG Confirmed by SHIRA WALTERS, FLORA ([id number]), acquisition editor AMERICA GONZÁLES ([id number]) on 03/14/2019 2:24:32 PM Referred By: Confirmed By:FLORA SILVA MD
[2019-03-13] MEDS: Aspirin E.C. 81 MG Tablet PO (06:16)
--- NOTE | 2019-03-13 07:54 | CON.PCM_ITS ---
Problem List (1) Chest pain Status: Acute (2) CAD in [place] artery Status: Chronic (3) S/P coronary artery stent placement Status: Chronic Comment: PTCA/ALEX to mid LAD and mid LCX 02/13/19 (4) Hyperlipidemia Status: Chronic (5) HTN (hypertension) Status: Chronic (6) Morbid obesity Status: Chronic Reason for Consult Date of Consultation: 03/13/19 History of Present Illness: The patient is a 48 year old white female with a past medical history of hyperlipidemia, hypertension, CAD, s/p LAD and LCX PCI/ALEX (02/13/19) who presents for evaluation of chest pain, shortness of breath, and dizziness. She states that since her PCI she has noted episodes of chest discomfort which she describes as a chest burning sensation as well as being short of breath and dyspneic as well as being dizzy. She states that her symptoms are somewhat worse with exertion but do occur at rest. She notes at times they keep her from sleeping but do not necessarily wake her up from sleep. She states she has not a good sleeper even prior to her diagnosis of CAD, etc., thus she is not sure whether her symptoms are truly causing her to have difficulty going to sleep, etc. She has denied any acute orthopnea or PND or peripheral pitting edema. She states she feels that she has been dizzy. She has had no near syncope or syncope. She also notes she is a very anxious person. But she is not sure what is real versus what is related to her anxiety. She did not choose to participate in cardiac rehabilitation. 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 She states that sometimes her symptom s are more bothersome with activity especially reaching above her head and other times her symptoms may not be as bothersome to her. She presented back to the hospital for further evaluation. She has had troponin I levels performed which have been negative. Her ECG is demonstrated sinus rhythm with no acute ECG changes. She was referred for further evaluation with stress nuclear imaging study. The results are pending at this time. He does states she has been taking her medications as prescribed. She does not believe she has missed any of her antiplatelet therapy. Also notes she has used her nitroglycerin sublingual. However, she states she does not believe it has made a significant difference with respect to her chest discomfort sensations. [] Past Medical History Allergies/Adverse Reactions: Allergies No Known Allergies Allergy (Verified 03/12/19 20:44) Home Medications: Ambulatory Orders Medication Instructions Recorded Hydroxyzine HCl 100 mg PO TID PRN 02/12/19 Ropinirole HCl 1 mg PO QHS 02/12/19 Acetaminophen [Tylenol] 1,000 mg PO TID PRN tab 02/14/19 Aspirin E.C. [Ecotrin] 81 mg PO DAILY@0800 tab 02/14/19 Atorvastatin Calcium [Lipitor] 80 mg PO QHS #30 tab 02/14/19 Nitroglycerin (INPATIENT USE) 0.4 mg SUBLINGUAL Q5M PRN #10 02/14/19 [Nitrostat] tab.subl hydrochlorothiazide 25 mg tablet 25 mg PO DAILY #30 tab 03/02/19 lisinopril 40 mg tablet 40 mg PO DAILY #30 tab 03/02/19 metoprolol tartrate 50 mg tablet 50 mg PO BID #60 tab 03/02/19 ticagrelor 90 mg tablet 90 mg PO BID #60 tab 03/02/19 Past Medical History (Chronic Problems): Chronic Problems (Last Reviewed 03/13/19 @ 07:18 by Drew Gonzáles MD) CAD in [place] artery (Chronic) Hyperlipidemia (Chronic) Atherosclerotic heart disease of [place] coronary artery without angina pectoris (Chronic) S/P coronary artery stent placement (Chronic ~02/13/19) PTCA/ALEX to mid LAD and mid LCX 02/13/19 HTN (hypertension) (Chronic) Morbid obesity (Chronic) Surgical History: no surgical history Psychiatric History: Anxiety, Depression 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 Her father with massive heart attack at age 38. Her paternal grandfather from heart attack when he was young. Paternal Family History: Family History (Last Reviewed 03/13/19 @ 04:05 by Drew Gonzáles MD) Father Sudden cardiac Other Hypertension History Items: - - Past from [place] in his late 30s Lives: Alone Smoking Status: Current every day smoker Alcohol: None Drugs: None Review of Systems - Review of Systems General: Denies: Fever, Night Sweats, Fatigue Cardiovascular: Reports: Chest Discomfort, Chest Discomfort at Rest, Chest Discomfort with Exertion, Shortness of Breath, Shortness of Breath at Rest, Shortness of Breath with Exertion, Dizziness. Denies: Orthopnea, PND, Peripheral Edema, Palpitations, Lightheadedness, Near Syncope, Syncope Respiratory: Reports: Shortness of Breath. Denies: Cough, Sputum Production, Hemoptysis Gastrointestinal: Denies: Hematemesis, Hematochezia, Melena Genitourinary: Denies: Dysuria, Hematuria Skin: Denies: Rash Subjectve: This is a 48 year old obese white female who appears to be resting comfortably at this time in no acute distress. Objective: Vital Signs Temp Pulse Resp BP Pulse Ox 97.5 F L 71 14 151/85 H 97 03/13/19 06:13 03/13/19 06:13 03/13/19 06:13 03/13/19 06:13 03/13/19 06:13 Oxygen Delivery Method Room Air Weight: 260 lb 2.327 oz Body Mass Index (BMI) 43.2 Intake and Output for Last 24 Hours 03/11/19 03/12/19 03/13/19 23:59 23:59 23:59 Intake Total 480 / 480 818.33 / 818.33 Balance 480 / 480 818.33 / 818.33 General: Awake, Alert, Oriented x 3, Cooperative, No Acute Distress, Obese HEENT: Atraumatic, Normocephalic, PERRL, EOMI, Sclera Non Icteric Oral: Moist Mucosa Neck: Supple, Good ROM, No JVD Lungs: Clear to auscultation Cardiovascular: Regular Rhythm, Normal S1, Normal S2 Vascular: No Carotid Bruits Abdomen: Bowel Sounds Present, Soft, Non Tender Extremities: No Cyanosis, No Clubbing, No edema Neurological: No Focal Motor or Sensory Deficit Psych/Mental Status: Appropriate 03/12/19 21:14: WBC 9.8, RBC 4.60, Hgb 13.8, Hct 42.2, MCV 91.7, MCH 30.0, MCHC 32.7, Plt Count 247, MPV 10.5, Immature Gran % (Auto) 0.400, Neut % (Auto) 50.5, Lymph % (Auto) 38.4, [place] % (Auto) 8.8, Eos % (Auto) 1.5, Baso % (Auto) 0.4, Absolute Neuts (auto) 4.9, Nucleated RBC % 0 03/12/19 21:14: Sodium 140, Potassium 3.8, Chloride 109 H, Carbon Dioxide 25.0, Anion Gap 6, BUN 19 H, Creatinine 1.20 H, Est GFR (MDRD) Af Amer 62, Est GFR (MDRD) Non-Af 51 L, BUN/Creatinine Ratio 15.8, Glucose 92, Calcium 9.1, Troponin I < 0.015 03/13/19 00:31: Troponin I < 0.015 03/13/19 03:26: Sodium 142, Potassium 3.8, Chloride 109 H, Carbon Dioxide 25.0, Anion Gap 8, BUN 21 H, Creatinine 0.91, Est GFR (MDRD) Af Amer 85, Est GFR (MDRD) Non-Af 70, BUN/Creatinine Ratio 23.0 H, Glucose 110 H, Calcium 8.7, Troponin I < 0.015 Rhythm: Sinus rhythm EKG: Normal sinus rhythm ECHO: 02/14/19: LV normal; estimated LVEF of 65%; mild CLVH; mild LAE; trivial MR/TR; estimated RVSP of 30 mmHg; decreased diastolic compliance Stress Test: Cardiac Cath: 02/13/19 CORONARY ANGIOGRAPHY DOMINANCE: Right Dominant LEFT HEART ASSESSMENT Left Ventricular Ejection Fraction: by LV Gram 60 % Normal LV wall motion Elevated Left Ventricular End Diastolic Pressure LVEDP: 38 mmHg LEFT MAIN: Angiographically normal LEFT ANTERIOR DESCENDING ARTERY: MID LAD: Eccentric: 85 % Stenosis DIAGONAL 1: Ostial - 50 % Stenosis, Proximal - 25 % Stenosis CIRCUMFLEX ARTERY: PROX CIRC: Eccentic: 25 % Stenosis (serial stenosis) MID CIRC: 75 % Stenosis RIGHT CORONARY ARTERY: PROX RCA: 25 % Stenosis MID RCA: Mild luminal irregularities DISTAL RCA: Mild luminal irregularities VALVE FINDINGS: Normal Aortic Valve function Normal Mitral Valve function AORTIC ROOT: Angiographically normal PCI: 02/14/19 CONCLUSIONS Successful PTCA/ALEX mid LAD with a 3.0 x 20 Promus Synergy, post dilated with a 3.0 x 8 NC Balloon; 75%-->-0%, no dissection. Successful PTCA/ALEX mid LCX with a 3.0 x 38 Promus Synergy, post dilated with a 3.0 and 3.5 x 12 NC Balloon; 75%-->0-%, no dissection. RECOMMENDATIONS CXR: preliminary review: no acute cardiopulmonary disease pattern; please see official report Assessment/Plan 1. Chest pain The patient presents with chest discomfort. He does admit that it is different from the discomfort she had prior to her diagnosis of CAD and PCI. She is concerned about her ongoing symptoms based upon her diagnosis and her family history with respect to her father reportedly dying of a cardiovascular related event at an early age. At the present time she has been undergoing noninvasive evaluation. Her cardiac enzymes have been negative. Her ECG is demonstrated sinus rhythm with no acute ECG changes. She was referred for a stress nuclear imaging study. The results are pending. Depending upon the results, if they are unremarkable, then she may need to be considered for non-CAD evaluation of her chest discomfort. 2. CAD s/p LAD and LCX PCI/ALEX She does have a history of PCI as noted above. Again she admits her symptoms are different from her symptoms prior to her PCI. At the present time her evaluation for acute coronary syndrome has been negative based upon her cardiac enzymes and lack of obvious ECG changes. She will continue evaluation care as noted above. She will continue medical management. 3. Hyperlipidemia She will continue risk factor evaluation care as deemed appropriate. 4. Hypertension Her blood pressure has been noted to be elevated. It is unclear whether this is a contributing factor to her underlying symptoms. She will need adjustment of medications over time as needed. 5. Morbid obesity Unfortunately she remains overweight. She has been counseled in the past with respect to dietary therapy and activity to try and bring her weight under better control. She is also been asked in the past to participate in cardiac rehabilitation which may be beneficial to her from an educational standpoint as well as a functional standpoint. She has declined cardiac rehabilitation in the past based upon her need to return to work. This note was generated using a voice recognition system and there may be incorrect words, spelling or punctuation that were not noted when reviewing the office note prior to saving.
--- NOTE | 2019-03-13 10:16 | DCINST_ITS ---
- Discharge Diagnoses Current Active Problems: Current Active and Chronic Problems (Last Reviewed 03/13/19 @ 07:18 by Drew Gonzáles MD) History of atherosclerotic heart disease (Acute) CAD in [place] artery (Chronic) Hyperlipidemia (Chronic) Chest pain (Acute) HTN (hypertension) (Chronic) Morbid obesity (Chronic) You will use the following diet at home:: Cardiac Your food should be the consistency of: Regular Discharge Activity: Return to Normal Activity Return to work on:: 03/14/19 Weight Bearing Status: Full weight bearing Call your doctor if you observe: Fever of 101 or Higher, Shortness of breath, Dizziness, Fainting spells, Chest pain, Increased palpitations (irregular heartbeat), Uncontrolled pain Allergies/Adverse Reactions: Allergies No Known Allergies Allergy (Verified 03/12/19 20:44) Medications to take at Discharge Hydroxyzine HCl 100 mg PO TID PRN 02/12/19 Ropinirole HCl 1 mg PO QHS 02/12/19 Acetaminophen [Tylenol] 1,000 mg PO TID PRN tab 02/14/19 Aspirin E.C. [Ecotrin] 81 mg PO DAILY@0800 tab 02/14/19 Atorvastatin Calcium [Lipitor] 80 mg PO QHS #30 tab 02/14/19 Nitroglycerin (INPATIENT USE) [Nitrostat] 0.4 mg SUBLINGUAL Q5M PRN #10 tab.subl 02/14/19 hydrochlorothiazide 25 mg tablet 25 mg PO DAILY #30 tab 03/02/19 lisinopril 40 mg tablet 40 mg PO DAILY #30 tab 03/02/19 metoprolol tartrate 50 mg tablet 50 mg PO BID #60 tab 03/02/19 ticagrelor 90 mg tablet 90 mg PO BID #60 tab 03/02/19 Primary Care Physician: Odette Patel NP-C [Primary Care Provider] - Please follow up with your Primary Care Physician in: 1 week. Test Results: Test results from this visit will be discussed in further detail at your follow- up appointment, if applicable.
--- NOTE | 2019-03-13 10:43 | PHA.DC.MR ---
Pharmacy Service has performed discharge medication reconciliation for this patient. No new medications at time of discharge. Medications reviewed are from previously reported home medications. The patient's discharge medication list was reviewed for discrepancies and discrepancies were resolved. Home Medications Hydroxyzine HCl 100 mg PO TID PRN 02/12/19 Ropinirole HCl 1 mg PO QHS 02/12/19 Acetaminophen [Tylenol] 1,000 mg PO TID PRN tab 02/14/19 Aspirin E.C. [Ecotrin] 81 mg PO DAILY@0800 tab 02/14/19 Atorvastatin Calcium [Lipitor] 80 mg PO QHS #30 tab 02/14/19 Nitroglycerin (INPATIENT USE) [Nitrostat] 0.4 mg SUBLINGUAL Q5M PRN #10 tab.subl 02/14/19 hydrochlorothiazide 25 mg tablet 25 mg PO DAILY #30 tab 03/02/19 lisinopril 40 mg tablet 40 mg PO DAILY #30 tab 03/02/19 metoprolol tartrate 50 mg tablet 50 mg PO BID #60 tab 03/02/19 ticagrelor 90 mg tablet 90 mg PO BID #60 tab 03/02/19
--- NOTE | 2019-03-13 12:32 | STRESSREP_ITS ---
Stress Test Report Date: 03-13-19 Procedure: Pharmacologic stress nuclear imaging study Indications: Chest pain; CAD; PCI Consent: Per the patient Procedure: The patient underwent pharmacologic (Regadenoson) evaluation with a peak heart rate of 93 beats per minute (53 %predicted maximal heart rate) and a peak blood pressure of 170/107 mmHg. The baseline ECG demonstrated normal sinus rhythm. The peak pharmacologic ECG demonstrated no obvious ECG changes. There were no cardiac dysrhythmias pretest, during pharmacologic infusion, or recovery. There was no complaint of chest discomfort during pharmacologic infusion or recovery. The examination was discontinued secondary to completion of protocol. Impression: 1. Pharmacologic (Regadenoson) evaluation 2. Peak pharmacologic ECG with no obvious ECG changes. 3. There were no cardiac dysrhythmias pretest, during pharmacologic infusion, or recovery. 4. Nuclear images pending Myocardial perfusion imaging study: Technique: The patient was injected with 14.7 millicuries of technetium 99m Cardiolite and subsequently rest SPECT Cardiolite nuclear imaging was obtained in the horizontal long, vertical long, and short axis views. The patient underwent pharmacologic (Regadenoson) evaluation with a peak heart rate of 93 beats per minute (53 % percent predicted maximal heart rate) and a peak blood pressure of 170/107 mmHg. The patient was injected with 44.9 millicuries of technetium 99m Cardiolite and subsequently stress SPECT Cardiolite nuclear imaging was obtained in the horizontal long, vertical long, and short axis views. A gated Cardiolite study at peak stress was obtained. Interpretation: Rest and stress SPECT Cardiolite nuclear imaging status post realignment, normalization, and attenuation correction demonstrate the appearance of diminished myocardial perfusion/tracer uptake in portions of the mid to distal anterior and anterior apical segments status post stress. There is end systolic thickening and brightening. The gated Cardiolite study demonstrates myocardial thickening and inward wall motion. The reported LVEF is 63 %. Impression: 1. Rest and stress SPECT current nuclear imaging demonstrate myocardial perfusion changes compatible with an area of stress-induced myocardial ischemia in portions of the mid to distal anterior and anterior apical segments. 2. The gated Cardiolite study reports an LVEF of 63 %. This note was generated with PAIEONation software. It may contain incorrect words, spelling, and punctuation that were not noted in checking the note before signing.
--- NOTE | 2019-03-13 13:44 | CASEMGMT ---
According to the [place] website, the following are in-network tertiary facilities: [facility], [place], [facility], [place], [facility], [facility], [facility], [place], [facility], and . Bharti GARCIA CM
[2019-03-13 14:03] LABS: Internal QC Validated? YES +Cl - CLEAR BKGD; Pregnancy, Serum, hCG Quali. NEGATIVE Negative
--- NOTE | 2019-03-13 15:17 | PN_ITS ---
Subjective: Chief complaint: Follow-up after admission for chest pain for evaluation. Patient seen and examined. No acute events overnight. This morning, she complained of chest pain with minimal shortness of breath. No improvement. This has been going on for around 1 week. Her vital signs are stable. - Physical Exam General: Alert, Oriented x3, Cooperative, No apparent distress HEENT: Atraumatic, PERRLA, EOMI, Normocephalic Oral: Moist Mucosa, No Gingival or Mucosal Lesions/ Ulcerations Neck: Supple, No JVD, Negative Carotid Bruits, Trachea Midline, Thyroid Normal Size and Texture Lungs: Clear to auscultation, Normal air movement, No rhonchi, No wheeze, No rales, Diminished Cardiovascular: Regular rate, Regular Rhythm, Normal S1, Normal S2, PMI Normal Abdomen: Bowel Sounds Present, Soft, Non Tender, Non-Distended, No Hepato- splenomegaly, Obese Extremities: No clubbing, No cyanosis, No edema Skin: No rashes, No breakdown Lymphatic: No Cervical, Supraclavicular, or Inguinal Adenopathy Neurological: Cranial nerves II-XII grossly intact, Neuro grossly intact Psych/Mental Status: Normal Affect, Appropriate, Alert and oriented to time, place, person, mood and affect Vital Signs Temp Pulse Resp BP Pulse Ox 97.8 F 64 16 135/89 H 98 03/13/19 12:13 03/13/19 12:13 03/13/19 12:13 03/13/19 12:13 03/13/19 12:13 Oxygen Delivery Method Room Air Weight: 260 lb 2.327 oz Body Mass Index (BMI) 43.2 Intake and Output for Last 24 Hours 03/11/19 03/12/19 03/13/19 23:59 23:59 23:59 Intake Total 480 / 480 1175.00 / 1175.00 Balance 480 / 480 1175.00 / 1175.00 Laboratory Tests Past 24 Hrs 03/12/19 03/12/19 03/13/19 21:14 21:14 00:31 WBC 9.8 RBC 4.60 Hgb 13.8 Hct 42.2 MCV 91.7 MCH 30.0 MCHC 32.7 RDW Std Deviation 42.7 RDW Coeff of Brissa 12.7 Plt Count 247 MPV 10.5 Immature Gran % (Auto) 0.400 Neut % (Auto) 50.5 Lymph % (Auto) 38.4 [place] % (Auto) 8.8 Eos % (Auto) 1.5 Baso % (Auto) 0.4 Absolute Neuts (auto) 4.9 Absolute Lymphs (auto) 3.76 Nucleated RBC % 0 Sodium 140 Potassium 3.8 Chloride 109 H Carbon Dioxide 25.0 Anion Gap 6 BUN 19 H Creatinine 1.20 H Estim Creat Clear Calc 52.71 Est GFR (MDRD) Af Amer 62 Est GFR (MDRD) Non-Af 51 L BUN/Creatinine Ratio 15.8 Glucose 92 Calcium 9.1 Troponin I < 0.015 < 0.015 Serum , Qual 03/13/19 03/13/19 03:26 13:45 WBC RBC Hgb Hct MCV MCH MCHC RDW Std Deviation RDW Coeff of Brissa Plt Count MPV Immature Gran % (Auto) Neut % (Auto) Lymph % (Auto) [place] % (Auto) Eos % (Auto) Baso % (Auto) Absolute Neuts (auto) Absolute Lymphs (auto) Nucleated RBC % Sodium 142 Potassium 3.8 Chloride 109 H Carbon Dioxide 25.0 Anion Gap 8 BUN 21 H Creatinine 0.91 Estim Creat Clear Calc 69.51 Est GFR (MDRD) Af Amer 85 Est GFR (MDRD) Non-Af 70 BUN/Creatinine Ratio 23.0 H Glucose 110 H Calcium 8.7 Troponin I < 0.015 Serum , Qual NEGATIVE Clinical Impression(s) from Imaging Studies Chest X-Ray 03/12/19 21:19 IMPRESSION: No acute cardiopulmonary disease or major interval change. Electronically Signed: Jefferson Herron DO at 21:40 EDT Tel [phone], Service support , Medical Necessity - Tobacco Use Smoking Status: Current every day smoker Tobacco Use: Cigarettes Assessment/Plan All Active Problems (Last Reviewed 03/13/19 @ 07:18 by Drew Gonzáles MD) Chest pain (Acute) This is a 48 years old female patient admitted for chest pain for evaluation she was found to have abnormal stress test, found to have myocardial perfusion changes compatible with area of stress-induced myocardial ischemia in the mid to distal anterior and apical segments. #1 chest pain/abnormal stress test: EKG revealed no acute ischemic changes. Troponin was negative. Patient continued to have intermittent chest pain. She underwent cardiac catheterization that revealed angiographically normal left main coronary artery, patent previously placed mid LAD stent, patent previously placed mid circumflex stent and there was mild luminal irregularities of the RCA, no interventions performed and decision was made to continue medical treatment. She is on aspirin, statins, Brilinta, lisinopril and metoprolol and she was started on isosorbide mononitrate. Cardiology on the case. Plan to continue same treatment, monitor blood pressure, anticipate discharge home tomorrow. #2 CAD status post stents: Cardiac cath revealed patent stents, no restenosis or occlusion. Continue aspirin, statins, beta-blockers, nitrates and Brilinta. #3 hypertension: Blood pressure stable, continue HCTZ, lisinopril and metoprolol as well as nitrates. #4 hyperlipidemia: Continue statins. #5 DVT prophylaxis: Low risk patient, no prophylaxis indicated. This note was generated with CallResto dictation software. It may contain incorrect words, spelling, and punctuation that were not noted in checking the note before signing. Code Visit OBSV E&M: 72043 Subsequent observation care L2
[2019-03-13] MEDS: Pantoprazole Sodium 40 MG Tablet PO (17:12)
[2019-03-13] MEDS: Isosorbide Mononitrate 30 MG Tablet PO (17:12)
--- NOTE | 2019-03-13 21:00 | NURSING ---
This RN ambulated pt in hallway around 19:50 on 03/13/19 after bedrest was up. No bleeding noted after ambulation. Site soft.
[2019-03-13] MEDS: Pramipexole Di-HCl 0.5 MG Tablet PO (21:18)
[2019-03-13] MEDS: Lisinopril 20 MG Tablet PO (21:18)
[2019-03-14] MEDS: 0.9% Normal Saline 1,000 ML 75 ML IV
[2019-03-14] MEDS: Morphine 2 MG/ML Syringe IV (00:26)
[2019-03-14 03:02] VITALS: PULSE 62
[2019-03-14 03:21] VITALS: BP 109/70; PULSE 65; RESP 16; TEMP 36.8; O2SAT 98
[2019-03-14 05:54] LABS: Hematocrit 36.1 % (37-47); Hemoglobin 11.6 g/dL (12.0-15.0)
[2019-03-14] MEDS: Acetaminophen 500 MG Tablet 1000 MG PO (06:13)
[2019-03-14 06:28] LABS: Anion Gap 7 (5-15); BUN 16 mg/dL (7-18); BUN/Creat Ratio 19.5 RATIO (10-20); Calcium,Total 8.6 mg/dL (8.5-10.1); Chloride 109 mmol/L (98-107); Creatinine, Serum 0.82 mg/dL (0.55-1.02); EST Glomerular Filtration Rate 79 mL/min (>60); Est Glom Filt Rate - Afr Amer 96 mL/min (>60); Estimated Creatinine Clearance 77.14 ml/min; Glucose 97 mg/dL (74-106); Potassium 4.1 mmol/L (3.5-5.1); Sodium Level 142 mmol/L (136-145)
[2019-03-14 06:50] VITALS: PULSE 67
[2019-03-14] MEDS: Isosorbide Mononitrate 30 MG Tablet PO (09:19)
[2019-03-14] MEDS: Pantoprazole Sodium 40 MG Tablet PO (09:19)
[2019-03-14] MEDS: Aspirin E.C. 81 MG Tablet PO (09:19)
[2019-03-14] MEDS: hydroCHLOROthiazide 25 MG Tablet PO (09:19)
[2019-03-14] MEDS: Lisinopril 20 MG Tablet PO (09:19)
[2019-03-14 09:20] VITALS: BP 146/81; PULSE 80; RESP 18; TEMP 36.3; O2SAT 98
[2019-03-14 09:25] VITALS: PULSE 80
[2019-03-14] MEDS: Metoprolol Tartrate 50 MG Tablet PO (09:25)
[2019-03-14] MEDS: TICAGRELOR 90 MG TABLET PO (09:25)
--- NOTE | 2019-03-14 10:12 | PCM.DC ---
- Discharge Diagnoses Current Active Problems: Current Active and Chronic Problems (Last Reviewed 03/13/19 @ 07:18 by Drew Gonzáles MD) History of atherosclerotic heart disease (Chronic) CAD in [place] artery (Chronic) Hyperlipidemia (Chronic) Chest pain (Acute) HTN (hypertension) (Chronic) Morbid obesity (Chronic) You will use the following diet at home:: Cardiac Your food should be the consistency of: Regular Discharge Activity: Return to Normal Activity Return to work on:: 03/19/19 Weight Bearing Status: Full weight bearing Call your doctor if you observe: Fever of 101 or Higher, Shortness of breath, Dizziness, Fainting spells, Chest pain, Increased palpitations (irregular heartbeat), Uncontrolled pain Allergies/Adverse Reactions: Allergies No Known Allergies Allergy (Verified 03/12/19 20:44) Medications to take at Discharge Hydroxyzine HCl 100 mg PO TID PRN 02/12/19 Ropinirole HCl 1 mg PO QHS 02/12/19 Acetaminophen [Tylenol] 1,000 mg PO TID PRN tab 02/14/19 Aspirin E.C. [Ecotrin] 81 mg PO DAILY@0800 tab 02/14/19 Atorvastatin Calcium [Lipitor] 80 mg PO QHS #30 tab 02/14/19 Nitroglycerin (INPATIENT USE) [Nitrostat] 0.4 mg SUBLINGUAL Q5M PRN #10 tab.subl 02/14/19 hydrochlorothiazide 25 mg tablet 25 mg PO DAILY #30 tab 03/02/19 metoprolol tartrate 50 mg tablet 50 mg PO BID #60 tab 03/02/19 ticagrelor 90 mg tablet 90 mg PO BID #60 tab 03/02/19 Isosorbide Mononitrate [Imdur] 30 mg PO DAILY #90 tab 03/14/19 Lisinopril [Zestril] 20 mg PO BID #90 tab 03/14/19 Pantoprazole Sodium [Protonix] 40 mg PO DAILY #30 tab 03/14/19 The following prescriptions were given: Isosorbide Mononitrate [Imdur] 30 mg PO DAILY #90 tab Transmission Status: Pending to [id number] Pantoprazole Sodium [Protonix] 40 mg PO DAILY #30 tab Transmission Status: Pending to [id number] Lisinopril [Zestril] 20 mg PO BID #90 tab Transmission Status: Pending to [id number] Primary Care Physician: Odette Patel NP-C [Primary Care Provider] - Please follow up with your Primary Care Physician in: 1-2 week. Test Results: Test results from this visit will be discussed in further detail at your follow-up appointment, if applicable. Please Follow Up With: Xavi Sommers MD When: 4-6 weeks.
--- NOTE | 2019-03-14 11:16 | PCM.PN.CARD ---
Subjectve: The patient is awake and alert. She appears to be without any acute symptoms at this time. Objective: Vital Signs Temp Pulse Resp BP Pulse Ox 97.4 F L 80 18 146/81 H 98 03/14/19 09:20 03/14/19 09:25 03/14/19 09:20 03/14/19 09:20 03/14/19 09:20 Oxygen Delivery Method Room Air Weight: 260 lb 2.327 oz Body Mass Index (BMI) 43.2 Intake and Output for Last 24 Hours 03/12/19 03/13/19 03/14/19 23:59 23:59 23:59 Intake Total 480 / 480 4418.75 / 4418.75 1253.75 / 1253.75 Balance 480 / 480 4418.75 / 4418.75 1253.75 / 1253.75 General: Awake, Alert, Oriented x 3, Cooperative, No Acute Distress, Obese HEENT: Atraumatic, Normocephalic, PERRL, EOMI, Sclera Non Icteric Oral: Moist Mucosa Neck: Supple, Good ROM, No JVD Lungs: Clear to auscultation Cardiovascular: Regular Rhythm, Normal S1, Normal S2 Vascular: No Carotid Bruits, Normal Femoral Pulses Abdomen: Bowel Sounds Present, Soft, Non Tender, Obese Extremities: No edema Neurological: No Focal Motor or Sensory Deficit Psych/Mental Status: Appropriate 03/14/19 05:25: Hgb 11.6 L, Hct 36.1 L 03/14/19 05:25: Sodium 142, Potassium 4.1, Chloride 109 H, Carbon Dioxide 26.0, Anion Gap 7, BUN 16, Creatinine 0.82, Est GFR (MDRD) Af Amer 96, Est GFR (MDRD) Non-Af 79, BUN/Creatinine Ratio 19.5, Glucose 97, Calcium 8.6 Rhythm: Sinus rhythm Medical Necessity - Tobacco Use Smoking Status: Current every day smoker Tobacco Use: Cigarettes Assessment/Plan 1. Chest pain The patient has undergone further evaluation for her chest discomfort. This included a diagnostic cardiac catheterization. Her LAD and LCx stents were patent. She did not require additional revascularization therapy. There is consideration that her chest discomfort may be non-CAD related. Based on her symptoms there are concerns that it could be related to underlying gastroesophageal reflux. Thus she was asked to attempt PPI therapy and monitor her symptoms. She may need further GI evaluation depending upon her clinical course. 2. CAD s/p LAD and LCX PCI/ALEX Again, her LAD and LCx stents were patent. Her cardiac catheterization there was question as to whether or not she had any coronary artery vasospasm of her RCA system. She was treated with intracoronary nitroglycerin. Status post repeat angiography her RCA appeared to be dilated with no obvious angiographically significant appearing disease. Thus it was felt reasonable the patient be treated with additional medical therapy with nitrates to assist in any concern with respect to the possibility of coronary artery vasospasm, etc.. However, again, based upon her clinical course there is still concerned that her symptoms are non-CAD related and she should pursue further non-CAD evaluation care with consideration to gastrointestinal evaluation care as noted above. Its been recommended she continue risk factor modification medical therapy as deemed appropriate. 3. Hyperlipidemia She will continue risk factor evaluation care as deemed appropriate. 4. Hypertension She will continue medical management. 5. Morbid obesity Unfortunately she remains overweight. She has been counseled in the past with respect to dietary therapy and activity to try and bring her weight under better control. The above was discussed with the patient. She was agreeable to this approach. Her course was also discussed with Dr. Pulido. This note was generated using a voice recognition system and there may be incorrect words, spelling or punctuation that were not noted when reviewing the office note prior to saving.
--- NOTE | 2019-03-14 11:41 | PCM.DC.SUM ---
Discharge Date and Diagnosis Date of Admission: 03/12/19 Date of Discharge: 03/14/19 - Primary Discharge Diagnosis Chest pain/abnormal stress test, underwent cardiac catheterization that showed no new CAD, recommended medical treatment. - Secondary Discharge Diagnosis Chronic Problems (Last Reviewed 03/13/19 @ 07:18 by Drew Gonzáles MD) History of atherosclerotic heart disease (Chronic) CAD in [place] artery (Chronic) Hyperlipidemia (Chronic) Atherosclerotic heart disease of [place] coronary artery without angina pectoris (Chronic) S/P coronary artery stent placement (Chronic ~02/13/19) PTCA/ALEX to mid LAD and mid LCX 02/13/19 HTN (hypertension) (Chronic) Morbid obesity (Chronic) Hospital Course and Treatment Imaging Results: Clinical Impression(s) from Imaging Studies Chest X-Ray 03/12/19 21:19 IMPRESSION: No acute cardiopulmonary disease or major interval change. Electronically Signed: Jefferson Herron DO at 21:40 EDT Tel [phone], Service support , Dr. Sommers, cardiology. Operations: None Procedures: Cardiac catheterization, EKG, Stress test Summary of Care Provided: Patient seen and examined on day of discharge and appeared to be stable to be discharged home. She denies any more chest pain. Denies shortness of breath. Her vital signs has been stable. The patient is a 48 year old F admitted for intermittent chest pain for evaluation. Patient has a history of CAD status post stents recently which was placed on February 13, 2019. On admission, EKG revealed normal sinus rhythm without obvious acute ischemic changes. Her troponin was negative. Chest x-ray showed no acute findings. She underwent nuclear stress test that was abnormal and revealed myocardial perfusion changes compatible with an area of stress-induced myocardial ischemia in the portions of the mid to distal anterior and anterior apical segments with ejection fraction of 63%. Cardiology consulted and recommended to go for cardiac catheterization. Patient underwent cardiac catheterization that revealed ejection fraction of 60%, normal LV wall motion, angiographically normal left main coronary artery, patent previously placed mid LAD stent, 50% stenosis of the ostial diagonal branch, 25% stenosis of the proximal diagonal branch, patent previously placed mid circumflex stent, mild luminal irregularities of the RCA without evidence of new CAD and there was no interventions performed. Decision was made to continue medical treatment. Patient was started on nitrates and continued on her previous cardiac medications. Her vital signs remained stable. Patient discharged home in a stable medical condition, started on isosorbide mononitrate, Protonix for probable GERD, continued on her previous medications all medications including Brilinta, plan to follow-up with cardiology in 4 to 6 weeks, follow-up with PCP in 1 to 2 weeks. - Physical Exam General: Alert, Oriented x3, Cooperative, No apparent distress HEENT: Atraumatic, PERRLA, EOMI, Normocephalic Oral: Moist Mucosa, No Gingival or Mucosal Lesions/ Ulcerations Neck: Supple, No JVD, Negative Carotid Bruits, Trachea Midline, Thyroid Normal Size and Texture Lungs: Clear to auscultation, Normal air movement, No rhonchi, No wheeze, No rales Cardiovascular: Regular rate, Regular Rhythm, Normal S1, Normal S2, PMI Normal Abdomen: Bowel Sounds Present, Soft, Non Tender, Non-Distended, No Hepato-splenomegaly, Obese Extremities: No clubbing, No cyanosis, No edema Skin: No rashes, No breakdown Lymphatic: No Cervical, Supraclavicular, or Inguinal Adenopathy Neurological: Cranial nerves II-XII grossly intact, Neuro grossly intact Psych/Mental Status: Normal Affect, Appropriate Vital Signs Temp Pulse Resp BP Pulse Ox 97.4 F L 80 18 146/81 H 98 03/14/19 09:20 03/14/19 09:25 03/14/19 09:20 03/14/19 09:20 03/14/19 09:20 Oxygen Delivery Method Room Air Weight: 260 lb 2.327 oz Body Mass Index (BMI) 43.2 Intake and Output for Last 24 Hours 03/12/19 03/13/19 03/14/19 23:59 23:59 23:59 Intake Total 480 / 480 4418.75 / 4418.75 1253.75 / 1253.75 Balance 480 / 480 4418.75 / 4418.75 1253.75 / 1253.75 Laboratory Tests Past 24 Hrs 03/13/19 03/14/19 03/14/19 13:45 05:25 05:25 Hgb 11.6 L Hct 36.1 L Sodium 142 Potassium 4.1 Chloride 109 H Carbon Dioxide 26.0 Anion Gap 7 BUN 16 Creatinine 0.82 Estim Creat Clear Calc 77.14 Est GFR (MDRD) Af Amer 96 Est GFR (MDRD) Non-Af 79 BUN/Creatinine Ratio 19.5 Glucose 97 Calcium 8.6 Serum , Qual NEGATIVE Discharge Activity: Return to Normal Activity Return to work on:: 03/19/19 Weight Bearing Status: Full weight bearing Call your doctor if you observe: Fever of 101 or Higher, Shortness of breath, Dizziness, Fainting spells, Chest pain, Increased palpitations (irregular heartbeat), Uncontrolled pain Home Medications: Medications to take at Discharge Hydroxyzine HCl 100 mg PO TID PRN 02/12/19 Ropinirole HCl 1 mg PO QHS 02/12/19 Acetaminophen [Tylenol] 1,000 mg PO TID PRN tab 02/14/19 Aspirin E.C. [Ecotrin] 81 mg PO DAILY@0800 tab 02/14/19 Atorvastatin Calcium [Lipitor] 80 mg PO QHS #30 tab 02/14/19 Nitroglycerin (INPATIENT USE) [Nitrostat] 0.4 mg SUBLINGUAL Q5M PRN #10 tab.subl 02/14/19 hydrochlorothiazide 25 mg tablet 25 mg PO DAILY #30 tab 03/02/19 metoprolol tartrate 50 mg tablet 50 mg PO BID #60 tab 03/02/19 ticagrelor 90 mg tablet 90 mg PO BID #60 tab 03/02/19 Isosorbide Mononitrate [Imdur] 30 mg PO DAILY #90 tab 03/14/19 Lisinopril [Zestril] 20 mg PO BID #90 tab 03/14/19 Pantoprazole Sodium [Protonix] 40 mg PO DAILY #30 tab 03/14/19 Following Prescrptions Were Given to Patient: Isosorbide Mononitrate [Imdur] 30 mg PO DAILY #90 tab Transmission Status: Received by [id number] Pantoprazole Sodium [Protonix] 40 mg PO DAILY #30 tab Transmission Status: Received by [id number] Lisinopril [Zestril] 20 mg PO BID #90 tab Transmission Status: Received by [id number] Primary Care Physician: Odette Patel NP-C [Primary Care Provider] - Please follow up with your Primary Care Physician in: 1-2 week. Please Follow Up With: Xavi Sommers MD When: 4-6 weeks. Disposition: Home Minutes spent on discharge:: 28 Patient Condition:: Stable Medical Necessity - Tobacco Use Smoking Status: Current every day smoker Tobacco Use: Cigarettes Meaningful Use Info Meaningful Use Diagnoses (Choose all that apply): None applicable Code Visit OBSV E&M: 49642 Observation care discharge
--- NOTE | 2019-03-22 09:58 | CL.D_ITS ---
Patient Name: JIM LUNA Study Date: 03/13/2019 Performing: Xavi Sommers MD Ht: 64.96 inches 165 cm : 1970 Wt: 260.15 lbs 118 kg Age: 48 Gender: female BSA: 2.21 PROCEDURE(S) PERFORMED [id number] CLINICAL PROFILE AND INDICATIONS Indications: Suspected CAD Heart Failure: None Stress/Imaging Date: 03/13/2019 Angina Classification Anginal Classification w/in 2 Weeks: CCS III CONCLUSIONS Elevated Left Ventricular End Diastolic Pressure Normal LV size, wall motion,and systolic function LVEF: by LV gram 60 % [place] Multivessel CAD LAD stent: patent LCX stent: patent RECOMMENDATIONS Risk factor modification Medical therapy DESCRIPTION OF PROCEDURE The patient arrived to the procedure lab. The risks and benefits of the procedure as well as a full d escription of our services here and current unavailability of surgical backup were fully explained to the patient and/or their significant other prior to the catheterization. The Timeout was completed, verifying the correct patient and procedure. The patient's procedural site was prepped and draped in the usual fashion. Local anesthetic was given subcutaneously to right groin region with Lidocaine 2%. Using a modified Seldinger technique, arterial access was obtained via the right femoral artery, a 4 Fr sheath was inserted Left Coronary Artery selective angiography was performed in multiple views us ing a 4 Fr. JL5 catheter. Right Coronary Artery selective angiography was then performed in multiple views using a 4 Fr. 3DRC catheter. Left Ventriculography was performed in [place] projection using a 4 Fr . Pigtail catheter. LV to AO pullback pressures were then recorded. Right Coronary Artery selective angiography was then performed in multiple views using a 4 Fr. 3DRC catheter.The arterial s amina was pulled and manual compression applied until hemostasis is achieved. CORONARY ANGIOGRAPHY DOMINANCE: Right Dominant LEFT HEART ASSESSMENT Left Ventricular Ejection Fraction: by LV Gram 60 % Normal LV wall motion Elevated Left Ventricular End Diastolic Pressure LVEDP: 31 mmHg LEFT MAIN: Angiographically normal LEFT ANTERIOR DESCENDING ARTERY: MID LAD: Previously placed stent is patent DIAGONAL 1: Ostial - 50 % Stenosis, Proximal - 25 % Stenosis CIRCUMFLEX ARTERY: PROX CIRC: smooth tubular 25 % Stenosis MID CIRC: Previously placed stent is patent OM 1: Proximal - Mild luminal irregularities RIGHT CORONARY ARTERY: Mild luminal irregularities VALVE FINDINGS: Normal Aortic Valve function Normal Mitral Valve function AORTIC ROOT: Angiographically normal COMPLICATIONS No Complications PROCEDURE MEDICATIONS Versed 1 mg IV Oxygen: 2 L/min via nasal cannula Nitro 200 mcg IC 03/13/2019 14:50:29 SUMMARY OF HEMODYNAMIC DATA Time AIR REST ECG 14:07:11 AO 139/86 (110) SA 14:28:42 LV 152/0, 29 14:39:21 LV 155/-6, 31 14:39:28 LV 149/5, 32 14:40:20 LV 151/-3, 33 14:40:26 LVp 153/-3, 30 14:40:31 AOp 157/90 (119) 14:40:36 Signed By Xavi Sommers MD On 03/13/2019 7:14:16 PM Xavi Sommers MD
== END 2019-03-14 10:13 | disposition home or self-care (01) ==
LOC: ED 22:20 → PCU 23:46
PROVIDERS: Internal Medicine Cardiovascular Disease; Admitting Provider Hospitalist; Emergency Provider Emergency Medicine; Family Provider Nurse Practitioner Family; PCP Nurse Practitioner Family; Visit Provider Hospitalist
DX: R07.89 Other chest pain (principal); R06.02 Shortness of breath; I25.10 Atherosclerotic heart disease of native coronary artery without angina pectoris; N17.9 Acute kidney failure, unspecified; I10 Essential (primary) hypertension; E66.01 Morbid (severe) obesity due to excess calories; E78.5 Hyperlipidemia, unspecified; R42 Dizziness and giddiness; G25.81 Restless legs syndrome; R11.2 Nausea with vomiting, unspecified; Z79.899 Other long term (current) drug therapy; Z79.82 Long term (current) use of aspirin; Z95.5 Presence of coronary angioplasty implant and graft; Z68.41 Body mass index [BMI] 40.0-44.9, adult; Z71.3 Dietary counseling and surveillance
CPT/HCPCS: 36415; 71045; 78452; 80048; 84484; 84703; 85014; 85018; 85025; 93005; 93017; 93458; 96361; 96372; 96374; 96376; 97802; 99152; 99153; 99218; 99285; A9500; J7030; Q9967; A4216; C1769; C1894; G0378; J2785

== ENCOUNTER 2019-05-18 14:28 | Emergency (ER) | payer BC, SELFPAY ==
[2019-02-14 14:10] VITALS: BMI 43.2
[2019-05-18 14:29] VITALS: BP 156/99; PULSE 81; RESP 15; TEMP 36.5; O2SAT 97; BMI 44.0
--- NOTE | 2019-05-18 14:54 | ED.VIS.GEN ---
History of Present Illness Chief Complaint: Lower Extremity Injury Detail of Chief Complaint: Low back pain not lower extremity injury Informant: Patient Onset: Month(s) Context: Gradual Onset Timing: Intermittent, Waxes and wanes Quality: Pain Location: Left lower back Current Severity: Mild Maximum Severity: Severe Worsened by: Movement, bending and stooping Relieved by: Nothing Associated Symptoms: No bowel or bladder symptoms. No saddle paresthesia, no sciatica Narrative: Patient is a 48-year-old woman who has been dealing with left low back pain for some time. She presents because of increased pain. She denies bowel bladder dysfunction. She does have stress incontinence. She denies saddle paresthesia. She denies radicular pain. She denies foot drop. She denies buckling of her knees going up or down steps. She denies paresthesia or anesthesia of the left lower extremity. She denies urologic symptoms. She denies fever or chills. She denies unintentional weight loss. 189 Prior similar symptoms: Yes Recent Illness/Hospitalization: No - Past Medical History (1) Atherosclerotic heart disease of [place] coronary artery without angina pectoris Status: Chronic (2) HTN (hypertension) Status: Chronic (3) Hyperlipidemia Status: Chronic (4) Morbid obesity Status: Chronic (5) S/P coronary artery stent placement Status: Chronic Comment: PTCA/ALEX to mid LAD and mid LCX 02/13/19 Past Medical History - Allergies and Home Meds Allergies/Adverse Reactions: Allergies No Known Allergies Allergy (Verified 05/18/19 14:33) Primary Care Physician: Odette Patel NP-C [Primary Care Provider] - Prior records reviewed: Yes Surgical History: no surgical history Lives: Alone Smoking Status: Current every day smoker Alcohol: None Drugs: None - Family History Maternal Family History: Family History (Last Reviewed 03/13/19 @ 04:05 by Drew Gonzáles MD) Father Sudden cardiac Other Hypertension Family History: Reports: Heart Disease - Her mother had a CABG when she was in the 40s to 50s. Her father with massive heart attack at age 38. Her paternal grandfather from heart attack when he was young. Paternal Family History: Family History (Last Reviewed 03/13/19 @ 04:05 by Drew Gonzáles MD) Father Sudden cardiac Other Hypertension Family History: Reports: - - Past from [place] in his late 30s Review of Systems General: Denies: Chills, Fever, Malaise, Sweats, Weight loss ENT: Denies: Rhinorrhea, Sore throat Cardiovascular: Denies: Chest pain, Palpitations Respiratory: Denies: Dyspnea, Cough, Dyspnea on exertion Gastrointestinal: Denies: Abdominal pain, Nausea, Vomiting, Diarrhea, Constipation, Melena, Hematochezia Genitourinary: Denies: Dysuria, Hematuria, Frequency Musculoskeletal: Reports: Back pain. Denies: Myalgias, Arthralgias, Neck pain, Swelling, Extremity Pain Skin: Denies: Rash, Wounds Neurological: Denies: Headache, Weakness, Numbness Physical Exam Vital Signs/Narrative: Vital Signs Temp Pulse Resp BP Pulse Ox 05/18/19 14:29 97.7 F L 81 15 156/99 H 97 Inital Vital Signs reviewed: Yes General: Well nourished, Well developed, Obese, No Acute Distress Head: Normocephalic, Atraumatic Eyes: Perrl, EOMI ENT: Moist mucous membranes, No rhinorrhea Neck: Supple, Nontender Cardiovascular: Regular rate, Regular rhythm, No murmurs Respiratory: No distress, CTA bilaterally, Chest nontender Abdomen: Soft, Nontender, Nondistended, Normal bowel sounds, No masses Back: Normal Inspection, - - Right leg test is negative right and left. Patella and ankle reflex are 2+. EHL is intact. Able patient gait was observed. There is no foot drop. She is able to walk on heels and toes. She is able to perform a 1 legged squat right and left. Perianal sensation is normal.. Negative for: CVA tenderness, Spinal tenderness Extremities: Nontender, No edema Skin: Normal color, No rash, No Trauma. Negative for: Cyanosis, Diaphoresis, Jaundice Neurological: Alert, Oriented x3, Cranial nerves II-XII grossly intact, Normal Strength, Normal Sensation, Normal DTR, Normal Gait Psychological: Normal affect, Normal Mood Diagnostic/Tx/Re-eval - Medical Decision Making IV was established she was treated with IV Toradol and 4 mg of morphine. Will reassess in 30 to 60 minutes. Patient was reassessed at 1515. She is sitting upright smiling. She does report sniffing and improvement. She will be discharged home. ED Disposition - Plan for ED Patient: Disposition: Home or Assisted Living Diagnosis: Acute low back pain without sciatica Instructions: BACK PAIN (Acute or Chronic) Prescriptions: Hydrocodone Bitart/Apap 5-325 [[place] 5MG-325MG] 1 tab PO Q6H PRN PRN 3 Days #10 tab PRN Reason: Pain Prescription Printed Referrals: Odette Patel NP-C [Primary Care Provider] - As Needed
[2019-05-18] MEDS: Ketorolac 15 MG/ML Vial IV (14:57)
[2019-05-18] MEDS: Morphine 4 MG/ML Syringe IV (14:59)
[2019-05-18 15:34] VITALS: RESP 16
== END 2019-05-18 15:36 | disposition home or self-care (01) ==
PROVIDERS: Emergency Provider Emergency Medicine; Family Provider Nurse Practitioner Family; PCP Nurse Practitioner Family
DX: M54.5 Low back pain (principal); I25.10 Atherosclerotic heart disease of native coronary artery without angina pectoris; I10 Essential (primary) hypertension; E78.5 Hyperlipidemia, unspecified; E66.01 Morbid (severe) obesity due to excess calories; Z95.5 Presence of coronary angioplasty implant and graft; Z79.899 Other long term (current) drug therapy; F17.210 Nicotine dependence, cigarettes, uncomplicated; N39.3 Stress incontinence (female) (male)
CPT/HCPCS: 96374; 96375; 99283

== ENCOUNTER 2022-07-05 13:55 | Emergency (ER) | payer MEDICAID, SELFPAY ==
[2019-02-14 14:10] VITALS: BMI 43.2
[2022-07-05 13:55] VITALS: BP 138/92; PULSE 108; RESP 22; TEMP 35.7; O2SAT 98; BMI 43.6
--- NOTE | 2022-07-05 15:08 | CT_ITS ---
STUDY: CT ABDOMEN AND PELVIS WITHOUT CONTRAST REASON FOR EXAM: Female, 51 years old. Right lower quadrant pain. Nausea, vomiting and diarrhea for 2 days. RADIATION DOSAGE (If Supplied By Facility): CTDIvol = ( 23.59 ) mGy, DLP = ( 1231.75 ) mGycm TECHNIQUE: Transaxial images were obtained from the dome of the diaphragm to the symphysis pubis without oral contrast, and without intravenous contrast. Sagittal and coronal images were reconstructed. Individualized dose optimization techniques were used for this CT. COMPARISON: None. FINDINGS: The visualized lung bases are unremarkable. The visualized portions of the heart are within normal limits. The liver is enlarged but uniform in density without mass. Normal gallbladder and extrahepatic biliary system. Normal spleen. Normal pancreas. Normal bilateral adrenal glands. Normal right kidney. Normal left kidney. Normal visualized ureters. Normal visualized stomach. Normal small intestine. Annular colonic diverticuli without acute inflammatory change. The appendix is visualized and appears normal. Atherosclerotic changes of the abdominal aorta without aneurysm or dissection. Normal inferior vena cava. Nonspecific subcentimeter retroperitoneal lymphadenopathy. Urinary bladder is poorly distended. Normal uterus and right ovary. There is cyst in left ovary. No pelvic lymphadenopathy. No free air or free fluid is seen within the abdominal cavity. Normal abdominal wall. There are diffuse degenerative changes of the visualized lumbar spine. Degenerative changes of the bilateral hips. CT/Abdomen/Pelvis without Cont IMPRESSION: 1. Hepatomegaly without mass. 2. Left ovarian cyst. 3. Degenerative changes of the lumbar spine and hips. Electronically Signed: Jefferson Herron DO at 16:38 EST Reading Location ID and State: [address] [place] [address] Tel [phone], Service support ,
--- NOTE | 2022-07-05 15:09 | EDS_ITS ---
HPI HPI - GI History of Present Illness Chief Complaint: Abd Pain Informant: patient Narrative Narrative: 3 days N/V/D and int abdominal pain. No f/c/s. No hematemesis or bloody stools. No urine symptoms. No hx abd surgeries. hx htn, CAD w/ stents in 2019. baby asa. no other blood thinners. Productive cough x 3 weeks. no fever. Prior similar symptoms: No PFSH PFSH Medical History (Updated 07/05/22 @ 19:[address] Bryant Rviera DO) Atherosclerotic heart disease of [place] coronary artery without angina pectoris HTN (hypertension) Hyperlipidemia Home Medications hydroxyzine HCl 50 mg tablet 100 mg PO TID PRN Anxiety 02/12/19 [History Last Taken 03/12/19 18:00] acetaminophen 500 mg tablet 1,000 mg PO TID PRN Pain 02/14/19 [Rx Last Taken 03/11/19] aspirin 81 mg tablet,delayed release 81 mg PO DAILY@0800 02/14/19 [Rx Last Taken 03/12/19 11:00] atorvastatin 80 mg tablet 80 mg PO QHS #30 tabs 02/14/19 [Rx Last Taken 03/11/19] nitroglycerin 0.4 mg sublingual tablet 0.4 mg sublingual Q5M PRN Chest Pain ##10 02/14/19 [Rx Last Taken 03/12/19 18:00] hydrochlorothiazide 25 mg tablet 25 mg PO DAILY #30 tabs 03/02/19 [Rx Last Taken Unknown] metoprolol tartrate 50 mg tablet 50 mg PO BID #60 tabs 03/02/19 [Rx Last Taken 03/11/19 10:00] ticagrelor 90 mg tablet 90 mg PO BID #60 tabs 03/02/19 [Rx Last Taken 03/11/19 11:00] isosorbide mononitrate 30 mg tablet,extended release 24 hr 30 mg PO DAILY #90 tabs 03/14/19 [Rx Last Taken Unknown] lisinopril 20 mg tablet 20 mg PO BID #90 tabs 03/14/19 [Rx Last Taken Unknown] pantoprazole 40 mg tablet,delayed release 40 mg PO DAILY #30 tabs 03/14/19 [Rx Last Taken Unknown] hyoscyamine sulfate 0.125 mg sublingual tablet (Levsin/SL) 0.125 mg PO TID PRN abdominal discomfort #10 tabs 07/05/22 [Rx Last Taken Unknown] ondansetron 4 mg disintegrating tablet 4 mg PO Q6H PRN nausea and vomiting #10 tabs 07/05/22 [Rx Last Taken Unknown] Allergy/AdvReac Type Severity Reaction Status Date / Time No Known Allergies Allergy Verified 07/05/22 15:16 Family History Father Sudden cardiac Other Hypertension Surgical History S/P coronary artery stent placement (~02/13/19) Social History Smoking Status: Current every day smoker tobacco type: e-cigarettes ROS ROS ED Constitutional Constitutional ED: Denies chills, fever(s) or sweats Eyes Eyes: Denies change in vision ENT ENT ED: Denies dysphagia or sore throat Cardiovascular Cardiovascular: Denies chest pain, leg edema, palpitations or racing heartbeat Respiratory/Chest Respiratory/Chest: Reports cough; Denies dyspnea or dyspnea on exertion Gastrointestinal Gastrointestinal: Reports abdominal pain, diarrhea, nausea and vomiting Genitourinary Genitourinary ED: Denies dysuria, hematuria or urinary frequency Musculoskeletal Musculoskeletal: Denies back pain, extremity pain or neck pain Integumentary Denies rash or wounds Neurologic Neurologic: Denies headache(s), paresthesias or weakness EXAM Physical Exam Const Vital Signs: 07/05/22 13:55 07/05/22 17:43 07/05/22 19:18 Temperature 96.3 F L Temperature Source Temporal Pulse Rate 108 H 87 Respiratory Rate 22 H 16 Blood Pressure 138/92 H 112/59 L Blood Pressure Mean 107 Pulse Ox 98 100 Oxygen Delivery Method Room Air Room Air Positive well nourished and well developed General Appearance ED: well developed and NAD HEENT Reports dry mucous membranes normocephalic and atraumatic Mouth ED: Yes dry mucous membranes Mouth: dry mucous membranes Eyes PERRL, EOMs intact bilaterally and conjunctivae normal General Eye ED: Yes normal appearance of both eyes Neck no lymphadenopathy and supple General: Negative for tenderness Chest Wall Chest: Negative for tenderness Resp normal respiratory effort and normal air movement Effort and Inspection: symmetric chest movement; Negative for respiratory distress Cardio regular rhythm and no murmurs Rate: tachycardic Peripheral Pulses: pulses 2+ throughout GI normal to inspection, nondistended, normoactive bowel sounds GI Narrative: RLQ TTP, neg glaser's Palpation: Negative for guarding or rebound tenderness present Back/Spine no CVA tenderness and no thoracic nor lumbar tenderness Extremity normal to inspection General Extremety ED: Negative for edema or tenderness General Extremity: Negative for edema Neuro oriented x3 and no sensory deficits noted Sensorium / Orientation: awake and alert Skin no rashes or lesions noted and no wounds MDM MDM MDM Narrative Medical decision making narrative: Patient presents with vomiting diarrhea with abdominal pain. Nonbloody. Tender proximal right lower quadrant. Differentials include appendicitis colitis and diverticulitis. Also could be viral gastroenteritis. Patient with dry mucosal membranes tachycardic. Clinical concerns for dehydration. IV established with fluids. Laboratory results ordered and reviewed by myself note NICOLA with creatinine 1.54 up from 0.8 previously. White count 11.4 hemoglobin 16. Electrolytes are normal lipase 148 with normal liver enzymes. She treated with Zofran and morphine for symptom control. She reports cough for 3 weeks as productive additional differential for this is viral URI versus pneumonia and bronchitis. Two-view chest x-ray obtained interpreted by myself negative for acute process. CT abdomen pelvis noncontrast interpreted myself noted normal appendix with no acute findings pending final read at this time. Additional liter of fluids due to her NICOLA. Final read from radiology normal appendix. Left ovarian cyst noted. Reevaluation patient able to tolerate p.o. fluids. Soft abdomen on exam. Prescription medications of Zofran Levsin sent to her pharmacy. Return precaution discussed. All questions were answered. Lab Data Attestation: I reviewed the patient's lab results. Labs: Laboratory Results - last 24 hr 07/05/22 07/05/22 15:08 15:08 WBC 11.4 H RBC 5.11 Hgb 16.1 H Hct 49.6 H MCV 97.1 MCH 31.5 MCHC 32.5 RDW Std Deviation 47.4 H RDW Coeff of Brissa 13.2 Plt Count 212 MPV 10.7 Immature Gran % (Auto) 0.500 Neut % (Auto) 66.0 Lymph % (Auto) 22.5 Emmet % (Auto) 9.7 Eos % (Auto) 0.7 Baso % (Auto) 0.6 Absolute Neuts (auto) 7.5 Absolute Lymphs (auto) 2.56 Nucleated RBC % 0 Sodium 136 Potassium 3.5 Chloride 106 Carbon Dioxide 21.0 Anion Gap 9 BUN 18 Creatinine 1.54 H Estim Creat Clear Calc 41.37 Est GFR (MDRD) Af Amer 46 L Est GFR (MDRD) Non-Af 38 L BUN/Creatinine Ratio 11.7 Glucose 127 H Calcium 9.1 Total Bilirubin 0.40 AST 18 ALT 37 Alkaline Phosphatase 75 Total Protein 8.1 Albumin 3.6 Globulin 4.5 H Albumin/Globulin Ratio 0.8 L Lipase 148 Radiography Diagnostic Testing: Clinical Impression(s) from Imaging Studies Abdomen/Pelvis CT 07/05/22 15:08 IMPRESSION: 1. Hepatomegaly without mass. 2. Left ovarian cyst. 3. Degenerative changes of the lumbar spine and hips. Electronically Signed: Jefferson Herron DO at 16:38 EST Reading [facility] Tel [phone], Service support , Chest X-Ray 07/05/22 16:25 IMPRESSION: No acute cardiopulmonary disease or major interval change. Electronically Signed: Jefferson Herron DO at 16:50 EST Reading Location ID and State: [facility] [employer] [facility] / [place] Tel [phone], Service support , Discharge Plan Triage Chief Complaint: Abd Pain ED Provider: Bryant Rivera Dx/Rx/DC Orders Clinical Impression: Nausea vomiting and diarrhea, Dehydration, Acute renal insufficiency, Abdominal pain, Cyst of left ovary Instructions: Abdominal Pain, Ovarian Cysts, ED Dehydration (Adult), ED Gastroenteritis, Viral (Adult), ED Renal Insufficiency Prescriptions: New hyoscyamine sulfate [Levsin/SL] 0.125 mg tablet, sublingual 0.125 mg PO TID PRN (Reason: abdominal discomfort) Qty: 10 0RF ondansetron 4 mg tablet,disintegrating 4 mg PO Q6H PRN (Reason: nausea and vomiting) Qty: 10 0RF No Action metoprolol tartrate 50 mg tablet 50 mg PO BID Qty: 60 11RF ticagrelor 90 mg tablet 90 mg PO BID Qty: 60 12RF Label Comments: antiplatelet hydrochlorothiazide 25 mg tablet 25 mg PO DAILY Qty: 30 11RF Label Comments: Pt has not been taking. Unsure of dose/frequency. hydroxyzine HCl 50 MG tablet 100 mg PO TID PRN (Reason: Anxiety) Label Comments: anxiety atorvastatin 80 MG tablet 80 mg PO QHS Qty: 30 0RF Label Comments: cholesterol aspirin 81 MG tablet 81 mg PO DAILY@0800 0RF Label Comments: heart health acetaminophen 500 MG tablet 1,000 mg PO TID PRN (Reason: Pain) 0RF Label Comments: pain nitroglycerin 0.4 MG tablet, sublingual 0.4 mg sublingual Q5M PRN (Reason: Chest Pain) Qty: 10 0RF Label Comments: chest pain Rx Instructions: every 5 minutes for 3 doses. lisinopril 20 MG tablet 20 mg PO BID Qty: 90 0RF isosorbide mononitrate 30 MG tablet 30 mg PO DAILY Qty: 90 0RF pantoprazole 40 MG tablet 40 mg PO DAILY Qty: 30 0RF Primary Care Provider: Odette Patel NP Referrals: Odette Patel NP, HOUSEKEEPING MANAGER-C [Primary Care Provider] - 3-5 Days Activity Restrictions/Additional Instructions: Creatinine 1.54 today. Continue oral fluids for hydration. CT scan normal appendix. Left ovarian cyst noted. Use medications as prescribed. Follow-up with your doctor. Return if any worsening symptoms. Disposition Disposition: Home, Self Care Discharge Date/Time: 07/05/22 19:21
[2022-07-05] MEDS: 0.9% Normal Saline 1,000 ML 1000 ML IV (15:14)
[2022-07-05] MEDS: Ondansetron 4 MG/2 ML Vial IV (15:14)
[2022-07-05] MEDS: Morphine 4 MG/ML Syringe IV (15:15)
[2022-07-05 15:23] LABS: Absolute Lymphocyte Count 2.56 X10^3/uL (0.83-4.51); Absolute Neutrophil Count 7.5 X10^3/uL (2.0-7.7); Basophil# 0.07 X10^3/uL; Basophil% 0.6 % (0-1); Eosinophil# 0.08 X10^3/uL; Eosinophils% 0.7 % (0-5); Hematocrit 49.6 % (37-47); Hemoglobin 16.1 g/dL (12.0-15.0); Lymphocyte # 2.56 X10^3/ul (0.83-4.51); Lymphocyte % 22.5 % (19-41); Mean Corp Hgb Conc 32.5 g/dL (32-36); Mean Corpuscular Hgb 31.5 pg (27.0-32.0); Mean Corpuscular Volume 97.1 fL (81-99); Mean Platelet Vol. 10.7 fl (6.2-12.0); Monocyte# 1.11 X10^3/uL; Monocyte% 9.7 % (0-10); NRBC Flagged by Analyzer 0 % (0-5); Neutrophil # 7.52 X10^3/uL (2.7-7.7); Platelet Count 212 K/mm3 (150-450); RBC Distribution Width CV 13.2 % (11.6-14.6); RBC Distribution Width SD 47.4 fl (35.1-43.9); Red Blood Count 5.11 M/mm3 (4.2-5.4); White Blood Count 11.4 K/mm3 (4.4-11.0)
[2022-07-05 15:57] LABS: ALB/GLOB Ratio 0.8 RATIO (0.9-2.4); AST(SGOT) 18 U/L (15-37); Alanine Aminotransfer ALT/SGPT 37 U/L (13-56); Albumin, Serum 3.6 g/dL (3.2-5.0); Alkaline Phosphatase 75 U/L (45-117); Anion Gap 9 (5-15); BUN 18 mg/dL (7-18); BUN/Creat Ratio 11.7 RATIO (10-20); Calcium,Total 9.1 mg/dL (8.5-10.1); Chloride 106 mmol/L (98-107); Creatinine, Serum 1.54 mg/dL (0.55-1.02); EST Glomerular Filtration Rate 38 mL/min (>60); Est Glom Filt Rate - Afr Amer 46 mL/min (>60); Estimated Creatinine Clearance 41.37 ml/min; Globulin 4.5 g/dL (2.2-4.2); Glucose 127 mg/dL (74-106); Lipase 148 U/L (73-393); Potassium 3.5 mmol/L (3.5-5.1); Protein, Total 8.1 g/dL (6.4-8.2); Sodium Level 136 mmol/L (136-145)
--- NOTE | 2022-07-05 16:25 | RAD_ITS ---
STUDY: X-RAY CHEST REASON FOR EXAM: Female, 51 years old. Cough. Abdominal pain with nausea, vomiting and diarrhea for 2 days. TECHNIQUE: PA and lateral views of the chest. COMPARISON: March 12, 2019. FINDINGS: The lungs are clear and expanded. There is no demonstrated pleural abnormality. Normal size heart. Normal mediastinum and teresa. Normal visualized pulmonary arteries. Normal visualized aortic arch and descending thoracic aorta. Normal visualized thoracic spine. Normal visualized ribs, clavicles, and shoulders. There is no demonstrated abnormality of the visualized soft tissue structures of the upper abdomen. RAD/Chest PA and Lateral IMPRESSION: No acute cardiopulmonary disease or major interval change. Electronically Signed: Jefferson Herron DO at 16:50 EST ,
[2022-07-05 17:43] VITALS: RESP 16
[2022-07-05] MEDS: 0.9% Normal Saline 1,000 ML 999 ML IV (17:43)
[2022-07-05] MEDS: Hyoscyamine Sulfate 0.125 MG Tablet SL (18:42)
[2022-07-05 19:18] VITALS: BP 112/59; PULSE 87; O2SAT 100
== END 2022-07-05 19:21 | disposition home or self-care (01) ==
PROVIDERS: Emergency Provider Emergency Medicine; PCP Nurse Practitioner Family; Visit Provider Emergency Medicine
DX: N83.202 Unspecified ovarian cyst, left side (principal); E86.0 Dehydration; F17.290 Nicotine dependence, other tobacco product, uncomplicated; R10.813 Right lower quadrant abdominal tenderness; N28.9 Disorder of kidney and ureter, unspecified; I25.10 Atherosclerotic heart disease of native coronary artery without angina pectoris; R19.7 Diarrhea, unspecified; E78.5 Hyperlipidemia, unspecified; I10 Essential (primary) hypertension; R11.2 Nausea with vomiting, unspecified
CPT/HCPCS: 71046; 74176; 80053; 83690; 85025; 96361; 96374; 96375; 99284; J7030; A4216; J2405

== ENCOUNTER 2022-11-24 19:15 | Emergency (ER) | payer MEDICAID, SELFPAY ==
[2019-02-14 14:10] VITALS: BMI 43.2
[2022-11-24 19:16] VITALS: BP 192/121; PULSE 118; RESP 15; TEMP 36.7; O2SAT 96
[2022-11-24 19:24] VITALS: BMI 42.5
[2022-11-24] MEDS: HYDROcodone Bitartrate/Apap 5/325 Tablet PO (20:06)
--- NOTE | 2022-11-24 20:06 | RAD_ITS ---
STUDY: X-RAY - PELVIS AND LEFT HIP REASON FOR EXAM: Female, 52 years old. HIP PAIN X 6 MOS TECHNIQUE: 3 views of the pelvis and hip. COMPARISON: None. FINDINGS: There is a non-specific bowel gas pattern. Normal visualized soft tissue structures. Normal bilateral iliac wings, sacroiliac joints and visualized sacrum. Normal bilateral superior and inferior pubic rami. Normal pubic symphysis. Normal bilateral ischial tuberosities. There are osteoarthritic changes of the femoral head with marginal osteophyte formation. There is cortical sclerosis with sub-cortical cyst formation of the acetabulum. is severe articular joint space narrowing of the hip. RAD/HIP, UNI W/ Pelvis 2-3 Views IMPRESSION: No acute abnormality. Severe osteoarthritis of the left hip. Electronically Signed: Vernon Davalos MD at 20:27 EDT ,
--- NOTE | 2022-11-24 20:12 | EDS_ITS ---
HPI History of Present Illness Chief Complaint: Other, Pain/Inj Narrative Narrative: Patient presents with left hip pain for 6 months. 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 No other trauma. She is able to ambulate but with pain. She has no back pain. [facility] Medical History (Updated 11/24/22 @ 21:[address] Xavi Thorpe MD) Atherosclerotic heart disease of [place] coronary artery without angina pectoris HTN (hypertension) Hyperlipidemia Home Medications hydroxyzine HCl 50 mg tablet 100 mg PO TID PRN Anxiety 02/12/19 [History Last Taken 03/12/19 18:00] acetaminophen 500 mg tablet 1,000 mg PO TID PRN Pain 02/14/19 [Rx Last Taken 03/11/19] aspirin 81 mg tablet,delayed release 81 mg PO DAILY@0800 02/14/19 [Rx Last Taken 03/12/19 11:00] atorvastatin 80 mg tablet 80 mg PO QHS #30 tabs 02/14/19 [Rx Last Taken 03/11/19] nitroglycerin 0.4 mg sublingual tablet 0.4 mg sublingual Q5M PRN Chest Pain ##10 02/14/19 [Rx Last Taken 03/12/19 18:00] hydrochlorothiazide 25 mg tablet 25 mg PO DAILY #30 tabs 03/02/19 [Rx Last Taken Unknown] metoprolol tartrate 50 mg tablet 50 mg PO BID #60 tabs 03/02/19 [Rx Last Taken 03/11/19 10:00] ticagrelor 90 mg tablet 90 mg PO BID #60 tabs 03/02/19 [Rx Last Taken 03/11/19 11:00] isosorbide mononitrate 30 mg tablet,extended release 24 hr 30 mg PO DAILY #90 tabs 03/14/19 [Rx Last Taken Unknown] lisinopril 20 mg tablet 20 mg PO BID #90 tabs 03/14/19 [Rx Last Taken Unknown] pantoprazole 40 mg tablet,delayed release 40 mg PO DAILY #30 tabs 03/14/19 [Rx Last Taken Unknown] hyoscyamine sulfate 0.125 mg sublingual tablet (Levsin/SL) 0.125 mg PO TID PRN abdominal discomfort #10 tabs 07/05/22 [Rx Last Taken Unknown] ondansetron 4 mg disintegrating tablet 4 mg PO Q6H PRN nausea and vomiting #10 tabs 07/05/22 [Rx Last Taken Unknown] tramadol 50 mg tablet 50 mg PO Q4H PRN PRN Pain 3 days #12 tabs 11/24/22 [Rx Last Taken Unknown] Allergy/AdvReac Type Severity Reaction Status Date / Time No Known Allergies Allergy Verified 11/24/22 19:21 Family History Father Sudden cardiac Other Hypertension Surgical History S/P coronary artery stent placement (~02/13/19) Social History Smoking Status: Current every day smoker tobacco type: e-cigarettes ROS ROS ED ROS Narrative Past medical history: Hypertension, hypercholesterolemia, CAD, angina. She is noncompliant with her medications Medications: Reviewed, again noncompliant Social history: Noncontributory Review of systems: Musculoskeletal: Left hip pain Skin: No abrasions or lacerations Neurological: No weakness or paresthesias Hematologic: No easy bleeding or easy bruising EXAM Physical Exam Narrative Exam Narrative: Physical exam General: Well nourished, Well developed, No Acute Distress Head: Normocephalic, Atraumatic Cardiovascular: Regular rate, Regular rhythm Respiratory: No distress, CTA bilaterally Abdomen: Soft, Nontender, Nondistended Back: Nontender, Normal Inspection. Negative for: CVA tenderness Extremities: Patient has some pain to logrolling and flexion and extension seems to be mostly in the groin and hip region. No tenderness over the lumbar region or SI region. Skin: Normal color, No rash Neurological: Alert, Normal Strength, Normal Sensation Const Vital Signs: 11/24/22 19:16 11/24/22 19:24 11/24/22 20:45 Temperature 98.1 F Temperature Source Temporal Pulse Rate 118 H Respiratory Rate 15 Respiratory Effort Normal Non-Labored Respiratory Pattern Normal Blood Pressure 192/121 H 183/114 H Blood Pressure Mean 144 137 Pulse Ox 96 Oxygen Delivery Method Room Air MDM MDM MDM Narrative Medical decision making narrative: Patient is quite hypertensive in the ED. I went back to talk to her for quite some time, apparently she does not take her blood pressure medications she does have them at times but refuses to take them, she tells me she has not followed up. She also claims insurance reasons. I did give her some of her blood pressure medications in the ED. I had social work talk to her about options and the free clinic and we also talked about [facility] [employer] and other free clinics. As far as left hip, she likely has arthritis. X-ray was read by me is unremarkable for acute findings. There is however quite a bit of DJD in that hip. There is no signs or symptoms for infection. She had blood work about 4 months ago as far as her renal function, I am worried that this could be somewhat worse but again she just needs to take her antihypertensives which we will try to help with. I gave her analgesia in the ED for her hip pain. aircraft worker dove deeper into her insurance status, apparently she does have insurance she even gets money back for going to certain appointments, she was informed of all of these, she has quite a bit of assistance available and she was given lots of resources, thus she should have no excuse for not taking her medications. Discharge Plan Triage Chief Complaint: Other, Pain/Inj ED Provider: Xavi Thorpe Dx/Rx/DC Orders Clinical Impression: DJD (degenerative joint disease), Hypertension, Noncompliance with medication regimen Instructions: Controlling High Blood Pressure, Osteoarthritis Prescriptions: New tramadol 50 mg tablet 50 mg PO Q4H PRN PRN (Reason: Pain) 3 Days Qty: 12 0RF No Action metoprolol tartrate 50 mg tablet 50 mg PO BID Qty: 60 11RF ticagrelor 90 mg tablet 90 mg PO BID Qty: 60 12RF Label Comments: antiplatelet hydrochlorothiazide 25 mg tablet 25 mg PO DAILY Qty: 30 11RF Label Comments: Pt has not been taking. Unsure of dose/frequency. hydroxyzine HCl 50 MG tablet 100 mg PO TID PRN (Reason: Anxiety) Label Comments: anxiety atorvastatin 80 MG tablet 80 mg PO QHS Qty: 30 0RF Label Comments: cholesterol aspirin 81 MG tablet 81 mg PO DAILY@0800 0RF Label Comments: heart health acetaminophen 500 MG tablet 1,000 mg PO TID PRN (Reason: Pain) 0RF Label Comments: pain nitroglycerin 0.4 MG tablet, sublingual 0.4 mg sublingual Q5M PRN (Reason: Chest Pain) Qty: 10 0RF Label Comments: chest pain Rx Instructions: every 5 minutes for 3 doses. lisinopril 20 MG tablet 20 mg PO BID Qty: 90 0RF isosorbide mononitrate 30 MG tablet 30 mg PO DAILY Qty: 90 0RF pantoprazole 40 MG tablet 40 mg PO DAILY Qty: 30 0RF hyoscyamine sulfate [Levsin/SL] 0.125 mg tablet, sublingual 0.125 mg PO TID PRN (Reason: abdominal discomfort) Qty: 10 0RF ondansetron 4 mg tablet,disintegrating 4 mg PO Q6H PRN (Reason: nausea and vomiting) Qty: 10 0RF Primary Care Provider: Odette Patel NP Referrals: Odette Patel NP, [facility] [Primary Care Provider] - Disposition Disposition: Home, Self Care
[2022-11-24] MEDS: hydroCHLOROthiazide 25 MG Tablet PO (20:34)
[2022-11-24] MEDS: Lisinopril 20 MG Tablet PO (20:34)
--- NOTE | 2022-11-24 20:35 | CM.ED ---
Social Work Referral Source: MD Thorpe Referral Reason: resources MD Thorpe informed SW patient reports having no insurance and therefore unable to afford prescribed medications. SW met with registration to inquire about patient's insurance; patient active with Medicaid managed plan. SW met with patient and introduced herself and role as [facility] SW. Patient sitting on hospital bed agreeable to speak with SW. SW informed patient registration was able to verify an insurance. SW provided patient with a list of insurance benefits including transportation benefit, health programs as well as rewards and extra benefit programs. SW also provided patient with [facility] resource list and briefly reviewed [facility] resources such as [facility] for prescription help. Patient was receptive towards information and inquired about local psychiatrist as patient wants medication assistance for anxiety. SW informed patient of the psychiatrist at [facility] and reviewed a list of local counseling agencies with psychiatry services. SW also reviewed local crisis information if needed for mental health emergency. Patient voiced appreciation for the resources and no other needs. SW remains available if needs arise. REHAN updated care team of resources provided. Edith Medrano DIRECTOR TITLE, ELIZABETH
[2022-11-24 20:45] VITALS: BP 183/114
== END 2022-11-24 21:28 | disposition home or self-care (01) ==
PROVIDERS: Emergency Provider Emergency Medicine; PCP Nurse Practitioner Family; Visit Provider Emergency Medicine
DX: M16.12 Unilateral primary osteoarthritis, left hip (principal); I25.10 Atherosclerotic heart disease of native coronary artery without angina pectoris; E78.00 Pure hypercholesterolemia, unspecified; I10 Essential (primary) hypertension; F17.290 Nicotine dependence, other tobacco product, uncomplicated; Z91.148 Patient's other noncompliance with medication regimen for other reason
CPT/HCPCS: 73502; 99283

== ENCOUNTER → 2023-01-18 | Outpatient (CLI) | payer MEDICAID, SELFPAY ==
[2019-02-14 14:10] VITALS: BMI 43.2
[2023-01-18 13:00] LABS: ALB/GLOB Ratio 1.2 RATIO (0.9-2.4); AST(SGOT) 29 U/L (15-37); Alanine Aminotransfer ALT/SGPT 60 U/L (13-56); Albumin, Serum 4.1 g/dL (3.2-5.0); Alkaline Phosphatase 83 U/L (45-117); Anion Gap 2 (5-15); BUN 19 mg/dL (7-18); BUN/Creat Ratio 18.4 RATIO (10-20); Calcium,Total 9.2 mg/dL (8.5-10.1); Chloride 105 mmol/L (98-107); Creatinine, Serum 1.03 mg/dL (0.55-1.02); EST Glomerular Filtration Rate 60 mL/min (>60); Est Glom Filt Rate - Afr Amer 73 mL/min (>60); Globulin 3.5 g/dL (2.2-4.2); Glucose 107 mg/dL (74-106); Potassium 4.4 mmol/L (3.5-5.1); Protein, Total 7.6 g/dL (6.4-8.2); Sodium Level 136 mmol/L (136-145); Thyroid Stim Hormone (TSH) 0.94 uIU/mL (0.358-3.74)
== END | disposition home or self-care (01) ==
LOC: LAB 11:14
PROVIDERS: PCP Nurse Practitioner Family; Referring Provider Internal Medicine Cardiovascular Disease; Visit Provider Internal Medicine Cardiovascular Disease
DX: I10 Essential (primary) hypertension (principal); E11.9 Type 2 diabetes mellitus without complications; I25.10 Atherosclerotic heart disease of native coronary artery without angina pectoris; E66.9 Obesity, unspecified; R00.2 Palpitations
CPT/HCPCS: 36415; 80053; 84443

== ENCOUNTER → 2023-02-10 | Outpatient (CLI) | payer MEDICAID, SELFPAY ==
[2019-02-14 14:10] VITALS: BMI 43.2
--- NOTE | 2023-02-10 06:51 | ECHOCS_ITS ---
Reason For Study: Chest Pain Procedure This was a 2D Doppler, Color Flow transthoracic echocardiogram. The study was technically difficult. Contrast injection was performed. Exam performed in department. Left Ventricle Mild concentric left ventricular hypertrophy. Normal LV size. Left ventricular systolic function is normal. The estimated ejection fraction is 65 %. Diastolic function is indeterminate. No regional wall motion abnormalities noted. Right Ventricle Normal RV size. Normal systolic function. Atria The left atrium is severely enlarged. Normal right atrium. Hypermobile atrial septum. Bubble contrast study negative for right to left interatrial shunt. Mitral Valve Mild mitral annular calcification. There is no mitral valve stenosis. Mild (1+) mitral valve insufficiency. Tricuspid Valve Normal tricuspid valve. Trivial tricuspid valve insufficiency. Unable to estimate RV systolic pressure due to insufficient tricuspid regurgitant envelope. Aortic Valve Trisinus/trileaflet aortic valve. Mild focal aortic valve calcification. There is no aortic stenosis. No aortic valve insufficiency. Pulmonic Valve The pulmonic valve is not well visualized. Mild (1+) pulmonic valve insufficiency. Great Vessels Normal aortic root. Pericardium/Pleural No pericardial effusion. Medication 20 gauge I.V. with prn adaptor inserted into left arm. Diluted definity 1.5ml given slow IV push to enhance endocardial definition. Performed a rapid injection of agitated mix of 9 cc saline and 1cc air to assess for atrial septal defect. MMode/2D Measurements & Calculations LVIDd: 4.8 cm IVSd: 1.1 cm Ao root diam: 3.3 cm LVIDs: 3.0 cm LVPWd: 1.2 cm LA dimension: 4.8 cm RVDd: 3.3 cm FS: 37.0 % LAV(MOD-bp): 78.4 ml LVAd ap4: 34.2 cm2 SV(MOD-sp4): 71.7 ml LAV(MOD-bp) Indexed: 34.7 ml/m2 LVLd ap4: 8.7 cm LAV(MOD-sp2): 66.2 ml EDV(MOD-sp4): 111.1 ml LAV(MOD-sp4): 84.9 ml EDV(sp4-el): 114.3 ml LVAs ap4: 17.1 cm2 LVLs ap4: 6.6 cm ESV(MOD-sp4): 39.5 ml ESV(sp4-el): 37.6 ml EF(MOD-sp4): 64.5 % EF(sp4-el): 67.1 % SV(sp4-el): 76.7 ml LA A4 area: 25.9 cm2 RA A4 area: 17.0 cm2 TAPSE: 1.7 cm Time Measurements MV dec time: 0.23 sec Doppler Measurements & Calculations MV E max andrei: 58.7 cm/sec Lat Peak E' Andrei: 8.5 cm/sec Med Peak E' Andrei: 7.4 cm/sec MV A max andrei: 72.4 cm/sec E/E' lat: 6.9 E/E' med: 7.9 MV E/A: 0.81 MV V2 max: 80.3 cm/sec MV P1/2t max andrei: 63.8 cm/sec Ao V2 max: 114.1 cm/sec MV max P.6 mmHg MV P1/2t: 71.9 msec Ao max P.2 mmHg MV V2 mean: 45.5 cm/sec Ao V2 mean: 83.3 cm/sec MV mean P.95 mmHg MV dec slope: 259.8 cm/sec2 Ao mean P.0 mmHg MV V2 VTI: 19.4 cm MVA(P1/2t): 3.1 cm2 Ao V2 VTI: 22.9 cm AV (velocity ratio): 0.93 LV V1 max: 101.0 cm/sec PA V2 max: 99.0 cm/sec LV V1 max P.1 mmHg PA V2 mean: 60.4 cm/sec LV V1 mean P.1 mmHg PA V2 VTI: 20.6 cm LV V1 mean: 68.8 cm/sec LV V1 VTI: 21.3 cm ECHO/Echo Complete W/ Contrast Interpretation Summary The estimated ejection fraction is 65 %. Mild (1+) mitral valve insufficiency. Diastolic function is indeterminate. The left atrium is severely enlarged. Mild concentric left ventricular hypertrophy. The study was technically difficult. Contrast injection was performed. Compared to prior study, there is no significant change. Ordering Physician: Clyde Mcgill Referring Physician: Clyde Mcgill Performed By: Wes De La Rosa RCS
--- NOTE | 2023-02-14 17:22 | STRESSREP ---
Stress Test Report Date: 02/10/2023 Procedure: Pharmacologic stress nuclear imaging study Indications: Chest pain Consent: Per the patient Procedure: The patient underwent pharmacologic (Regadenoson 0.4mg ) evaluation with a peak heart rate of 101 beats per minute (59%predicted maximal heart rate) and a peak blood pressure of 108/78 mmHg. The baseline ECG demonstrated normal sinus rhythm. The peak pharmacologic ECG demonstrated no ischemic changes. There were no cardiac dysrhythmias pretest, during pharmacologic infusion, or recovery. There was no complaint of chest discomfort during pharmacologic infusion or recovery. The patient was injected with 14.9 millicuries of technetium 99m Cardiolite and subsequently rest SPECT Cardiolite nuclear imaging was obtained in the horizontal long, vertical long, and short axis views. The patient underwent pharmacologic (Regadenoson) evaluation. The patient was injected with 45.0 millicuries of technetium 99m Cardiolite and subsequently stress SPECT Cardiolite nuclear imaging was obtained in the horizontal long, vertical long, and short axis views. A gated Cardiolite study at peak stress was obtained. The examination was stopped secondary to completion of protocol. Rest and stress SPECT Cardiolite nuclear imaging status post realignment, normalization, and attenuation correction demonstrate no fixed or reversible perfusion defects. There is end systolic thickening and brightening. The gated Cardiolite study demonstrates myocardial thickening and inward wall motion. The reported LVEF is 68%. Impression: 1. Pharmacologic (Regadenoson) evaluation 2. Peak pharmacologic ECG with no ischemic changes. 3. There were no cardiac dysrhythmias pretest, during pharmacologic infusion, or recovery. 5. Rest and stress SPECT Cardiolite nuclear imaging demonstrate relative uniform tracer uptake and myocardial perfusion appearing within normal limits. 6. The gated Cardiolite study reports an LVEF of 68%. This note was generated with ActivityHeroation software. It may contain incorrect words, spelling, and punctuation that were not noted in checking the note before signing.
== END | disposition home or self-care (01) ==
LOC: CVS 06:50
PROVIDERS: PCP Nurse Practitioner Family; Referring Provider Internal Medicine Cardiovascular Disease; Visit Provider Internal Medicine Cardiovascular Disease
DX: R07.9 Chest pain, unspecified (principal); E66.9 Obesity, unspecified
CPT/HCPCS: 93306; 78452; 93017; A9500; Q9957; A4216; C8929; J2785

== ENCOUNTER 2023-06-21 17:31 | Emergency (ER) | payer SELFPAY ==
[2019-02-14 14:10] VITALS: BMI 43.2
[2023-06-21 17:33] VITALS: BP 190/113; PULSE 81; RESP 18; TEMP 36.1; O2SAT 98; BMI 39.8
--- NOTE | 2023-06-21 17:42 | EKG12_ITS ---
Test Reason : CP Blood Pressure : / mmHG Vent. Rate : 071 BPM Atrial Rate : 071 BPM P-R Int : 142 ms QRS Dur : 096 ms QT Int : 422 ms P-R-T Axes : 009 065 024 degrees QTc Int : 458 ms Normal sinus rhythm Normal ECG Confirmed by INDIA ALEXANDER MD ([id number]), make up editor MELISA CORONADO ([id number]) on 06/28/2023 8:17:30 AM Referred By: Confirmed By:INDIA ALEXANDER MD
--- NOTE | 2023-06-21 17:52 | RAD_ITS ---
STUDY: X-RAY CHEST REASON FOR EXAM: Female, 52 years old. Chest pain TECHNIQUE: Single frontal view of the chest. COMPARISON: July 05, 2022 FINDINGS: There are monitoring devices. The lungs are clear and expanded. There is no demonstrated pleural abnormality. Normal size heart. Normal mediastinum and teresa. Normal visualized pulmonary arteries. Normal visualized aortic arch and descending thoracic aorta. Normal visualized thoracic spine. Normal visualized ribs, clavicles, and shoulders. There is no demonstrated abnormality of the visualized soft tissue structures of the upper abdomen. RAD/Chest 1 View (Portable) IMPRESSION: Normal x-ray examination of the chest. Electronically Signed: Salomón Stewart MD at 18:30 EST ,
[2023-06-21 17:56] LABS: Absolute Lymphocyte Count 2.31 X10^3/uL (0.83-4.51); Absolute Neutrophil Count 5.3 X10^3/uL (2.0-7.7); Basophil# 0.06 X10^3/uL; Basophil% 0.7 % (0-1); Eosinophil# 0.11 X10^3/uL; Eosinophils% 1.3 % (0-5); Hematocrit 48.4 % (37-47); Lymphocyte # 2.31 X10^3/ul (0.83-4.51); Lymphocyte % 27.4 % (19-41); Mean Corp Hgb Conc 33.1 g/dL (32-36); Mean Corpuscular Hgb 31.4 pg (27.0-32.0); Mean Corpuscular Volume 95.1 fL (81-99); Monocyte# 0.59 X10^3/uL; NRBC Flagged by Analyzer 0 % (0-5); Neutrophil # 5.32 X10^3/uL (2.7-7.7); Neutrophil % 63.1 % (47-70); Platelet Count 245 K/mm3 (150-450); RBC Distribution Width CV 12.9 % (11.6-14.6); RBC Distribution Width SD 45.1 fl (35.1-43.9); Red Blood Count 5.09 M/mm3 (4.2-5.4); White Blood Count 8.4 K/mm3 (4.4-11.0)
--- NOTE | 2023-06-21 18:12 | EDS_ITS ---
HPI History of Present Illness Chief Complaint: Chest Pain Narrative Narrative: 52-year-old female past medical history of diabetes, hypertension, hypercholesterolemia, coronary artery disease with stenting, presents with chest pain that she has had since around 7:00 this morning, 11 hours ago. She states that she was getting up to go to work, and started having sharp, stabbing chest pain. She vomited twice and was nauseated. She has had the chest pain ever since. She denies any shortness of breath, fever or chills, or radiation to her back. No exacerbating or alleviating factors. She is a smoker and is down to 2 to 3 cigarettes a day. She sees a deck mechanic here in [place]. She presents because of continued chest pain. [facility] Medical History Abnormal stress test Anxiety Atherosclerotic heart disease of [place] coronary artery without angina pectoris CAD in [place] artery Chest pain Coronary artery disease Depression Diabetes DJD (degenerative joint disease) GERD (gastroesophageal reflux disease) History of atherosclerotic heart disease HTN (hypertension) Hyperlipidemia Left hip pain Mild cognitive disorder Morbid obesity Obesity Palpitations RLS (restless legs syndrome) Tobacco dependence Unstable angina Home Medications atorvastatin 80 mg tablet 80 mg PO QHS #30 tabs 02/14/19 [Rx Last Taken 03/11/19] lisinopril 20 mg-hydrochlorothiazide 12.5 mg tablet 2 tab PO DAILY 01/11/23 [History Last Taken Unknown] omeprazole 20 mg capsule,delayed release 20 mg PO DAILY 01/11/23 [History Last Taken Unknown] aspirin 81 mg tablet,delayed release 81 mg PO DAILY 01/18/23 [History Last Taken Unknown] metformin 500 mg tablet 500 mg PO BID 01/18/23 [History Last Taken Unknown] metoprolol tartrate 100 mg tablet 100 mg PO BID #180 tabs 01/18/23 [Rx Last Taken Unknown] nifedipine 90 mg tablet,extended release 24 hr 90 mg PO DAILY #90 tabs 01/18/23 [Rx Last Taken Unknown] Allergy/AdvReac Type Severity Reaction Status Date / Time No Known Allergies Allergy Verified 06/21/23 17:32 Family History Father , 30's Sudden cardiac Mother CAD (coronary artery disease) CABG x4 in 40's Cancer Grandfather Cancer Aunt Cancer Lymphoma Other Diabetes Hypertension Surgical History History of colonoscopy S/P coronary artery stent placement (~02/13/19) Social History Smoking Status: Current every day smoker tobacco type: cigarettes and e- cigarettes alcohol intake: current alcohol intake frequency: holidays/special occasions only substance use type: does not use caffeine: No ROS ROS ED ROS Narrative Constitutional: No fever, no chills. HEENT: No sore throat. No neck pain. No loss of vision. No rhinorrhea. Cardiovascular: As of midsternal chest pain. No palpitations. No pedal edema. Respiratory: No cough, no shortness of breath. Abdominal: No abdominal pain. Episodes of nausea and vomiting today, no he matemesis. Genitourinary: No dysuria. No hematuria. Musculoskeletal: No myalgias. No arthralgias. Neurologic: No headaches. No dizziness. No lightheadedness. Skin: No rash. No change in color. Psychiatric: No depression. No anxiety. EXAM Physical Exam Narrative Exam Narrative: Afebrile. Vital signs noted. HEENT: Normocephalic. Atraumatic. PERRL, EOMI. Neck soft and supple. No point tenderness or step off. Cardiovascular: Regular rate and rhythm. No murmurs, rubs, or gallops appreciated. Respiratory: No tachypnea. Lungs clear to auscultation bilaterally. Gastrointestinal: Abdomen soft, nontender, with normoactive bowel sounds. No rebound or guarding. Neurological: Awake. Alert. Nonfocal, nonlateralizing. Skin: No rash. Normal color. No pallor. Musculoskeletal: No pedal edema. Full range of motion extremities. Const Vital Signs: 06/21/23 17:33 06/21/23 17:57 06/21/23 17:57 Temperature 97 F L Temperature Source Temporal Pulse Rate 81 Respiratory Rate 18 Respiratory Effort Normal Non-Labored Blood Pressure 190/113 H Blood Pressure Mean 138 Pulse Ox 98 Oxygen Delivery Method Room Air Room Air 06/21/23 19:57 06/21/23 20:28 Temperature Temperature Source Pulse Rate 68 69 Respiratory Rate Respiratory Effort Blood Pressure 207/187 H 177/93 H Blood Pressure Mean 193 121 Pulse Ox Oxygen Delivery Method Heart Score History: Slightly/Non-Suspicious ECG: Normal Age: >45 - <65 years Risk Factors: >/= 3 Risk Factors or History of CAD Score: 3 MDM MDM MDM Narrative Medical decision making narrative: Concern would be for acute coronary syndrome/STEMI/non-STEMI. Also in the differential diagnosis is aortic dissection and pulmonary emboli, but I have low suspicion for these because the history and physical does not support these latter 2 diagnoses. Chest pain workup was pursued with protocol started. Given that she had nausea and vomiting I would also add a lipase. EKG was obtained and interpreted by myself independently as normal sinus rhythm at 71 bpm without ectopy or acute ST changes. No STEMI. I also have low concern for pulmonary embolism because her pulse ox is 98% on room air and she is not tachycardic. She does have elevated blood pressure so she will be given nitroglycerin as she may be having more of a hypertensive urgency. She has already taken aspirin within the last 24 hours. I reviewed her laboratory work and she has normal white count of 8.4, hemoglobin normal at 16, hematocrit 48.4, platelet count normal at 245. Her electrolyte panel is grossly unremarkable except for glucose appropriately elevated at 121 with an anion gap normal at 5, I have low concern for diabetic ketoacidosis. Lipase is normal at 35, helping to rule out pancreatitis. Initial high- sensitivity troponin is 10 with repeat being 9. At this point in time, I am unsure as to the cause of her chest pain, but she did have elevated blood pressure. She was given nitroglycerin. Resultant blood pressure was 177 systolic so she will be given hydralazine 5 mg intravenously prior to discharge. I do not feel she requires observation but smoking cessation was discussed and she was told to continue to check her blood pressure and follow-up with her primary care physician and/or cardiology. She is to return with any increased pain, new or worsening symptoms. Disposition is discharged home in stable condition. History & Record Review Discussion w/independent historian: Patient Additional record(s) reviewed:: Prior ED visit Lab Data Attestation: I reviewed the patient's lab results. Labs: Laboratory Results - last 24 hr 06/21/23 06/21/23 17:45 19:55 WBC 8.4 RBC 5.09 Hgb 16.0 H Hct 48.4 H MCV 95.1 MCH 31.4 MCHC 33.1 RDW Std Deviation 45.1 H RDW Coeff of Brissa 12.9 Plt Count 245 MPV 11.0 Immature Gran % (Auto) 0.500 Neut % (Auto) 63.1 Lymph % (Auto) 27.4 [place] % (Auto) 7.0 Eos % (Auto) 1.3 Baso % (Auto) 0.7 Absolute Neuts (auto) 5.3 Absolute Lymphs (auto) 2.31 Nucleated RBC % 0 Sodium 139 Potassium 3.9 Chloride 107 Carbon Dioxide 27.0 Anion Gap 5 BUN 12 Creatinine 1.00 Estim Creat Clear Calc 65.45 Est GFR (MDRD) Af Amer 75 Est GFR (MDRD) Non-Af 62 BUN/Creatinine Ratio 12.0 Glucose 121 H Calcium 9.4 Troponin I High Sens 10 9 Lipase 35 Radiography Diagnostic Testing: Clinical Impression(s) from Imaging Studies Chest X-Ray 06/21/23 17:52 IMPRESSION: Normal x-ray examination of the chest. Electronically Signed: Salomón Stewart MD at 18:30 EST , Discharge Plan Triage Chief Complaint: Chest Pain ED Provider: Michael Henriquez Dx/Rx/DC Orders Clinical Impression: Chest pain, HTN (hypertension) Instructions: ED Chest Pain, Uncertain Cause, ED High Blood Pressure Hypertension Prescriptions: No Action omeprazole 20 mg capsule,delayed release(DR/EC) 20 mg PO DAILY lisinopril-hydrochlorothiazide 20-12.5 mg tablet 2 tab PO DAILY metformin 500 mg tablet 500 mg PO BID metoprolol tartrate 100 mg tablet 100 mg PO BID Qty: 180 1RF aspirin 81 mg tablet,delayed release (DR/EC) 81 mg PO DAILY nifedipine 90 mg tablet extended release 24hr 90 mg PO DAILY Qty: 90 1RF atorvastatin 80 MG tablet 80 mg PO QHS Qty: 30 0RF Patient Comments: cholesterol Primary Care Provider: Odette Patel NP Referrals: Odette Patel NP, [employer] [facility] [Primary Care Provider] - 1-2 Days if not improving Disposition Disposition: Home, Self Care
[2023-06-21 18:18] LABS: Anion Gap 5 (5-15); BUN 12 mg/dL (7-18); Calcium,Total 9.4 mg/dL (8.5-10.1); Chloride 107 mmol/L (98-107); EST Glomerular Filtration Rate 62 mL/min (>60); Est Glom Filt Rate - Afr Amer 75 mL/min (>60); Estimated Creatinine Clearance 65.45 ml/min; Glucose 121 mg/dL (74-106); Potassium 3.9 mmol/L (3.5-5.1); Sodium Level 139 mmol/L (136-145); Troponin-I HS (w/2H Reflex) 10 pg/mL (3.0-54.0)
[2023-06-21 18:34] LABS: Lipase 35 U/L (13-75)
[2023-06-21 19:53] LABS: Reflex Troponin-HS? (from REC) Y
[2023-06-21 19:57] VITALS: BP 207/187; PULSE 68
[2023-06-21 20:21] LABS: Troponin-I HS 9 pg/mL (3.0-54.0)
[2023-06-21 20:28] VITALS: BP 177/93; PULSE 69
== END 2023-06-21 21:27 | disposition home or self-care (01) ==
PROVIDERS: Emergency Provider Emergency Medicine; PCP Nurse Practitioner Family; Visit Provider Emergency Medicine
DX: R07.9 Chest pain, unspecified (principal); E11.9 Type 2 diabetes mellitus without complications; I10 Essential (primary) hypertension; R11.2 Nausea with vomiting, unspecified; F17.210 Nicotine dependence, cigarettes, uncomplicated; I25.10 Atherosclerotic heart disease of native coronary artery without angina pectoris; E78.00 Pure hypercholesterolemia, unspecified; F17.290 Nicotine dependence, other tobacco product, uncomplicated
CPT/HCPCS: 71045; 80048; 83690; 84484; 85025; 93005; 99284; A4216

== ENCOUNTER → 2024-08-31 | Outpatient (CLI) | payer MEDICAID, SELFPAY ==
[2019-02-14 14:10] VITALS: BMI 43.2
--- NOTE | 2024-08-31 11:59 | BI_ITS ---
PROCEDURE: SCRN MAMM (CAD)W/ELIAN BILAT REASON FOR EXAM: F, Age 53 y/o, presents for annual screening mammogram. Family history of breast cancer in maternal great aunt and maternal cousin. TECHNIQUE: Bilateral screening digital breast tomosynthesis with 2D and 3D images. Computer aided detection. COMPARISON: Baseline examination, no priors. FINDINGS: The breasts are almost entirely fatty. No suspicious masses, areas of developing architectural distortion, or suspicious calcifications. BI/SCRN MAMM (CAD)W/ELIAN BILAT IMPRESSION: There is no mammographic evidence of malignancy. BI-RADS 1: NEGATIVE. RECOMMEND ANNUAL MAMMOGRAPHIC SCREENING. Follow-up code: Routine Follow-up. The patient will be notified of the results by letter. Reading Location: [id number]
== END | disposition home or self-care (01) ==
LOC: OPBI 11:56
PROVIDERS: PCP Nurse Practitioner Family; Referring Provider Nurse Practitioner Family; Visit Provider Nurse Practitioner Family
DX: Z12.31 Encounter for screening mammogram for malignant neoplasm of breast (principal)
CPT/HCPCS: 77063; 77067